=== PATIENT | male | born 1960 | race Caucasian/White ===

== ENCOUNTER 2018-10-02 16:28 | Inpatient (IN) | payer OTHER ==
[2018-10-02] MEDS ORDERED: NITROGLYCERIN OINT 1 INCH/GM PACKET TOPICAL STA (16:31)
[2018-10-02] MEDS ORDERED: SODIUM CHLORIDE 0.9% 500 ML 500 ML IV STA (16:31)
[2018-10-02] MEDS ORDERED: SODIUM CHLORIDE 0.9% 1,000 ML IV STA (16:31)
[2018-10-02] MEDS ORDERED: ASPIRIN 81 MG PO STA (16:31)
--- NOTE | 2018-10-02 16:37 | ED ---
General Adult HPI - General Stated complaint: Chest pain Time Seen by Provider: 10/02/18 16:30 Source: patient, EMS, RN notes reviewed Mode of arrival: EMS Limitations: no limitations - History of Present Illness Initial comments: patient is a pleasant 58-year-old male presenting to the emergency Department with chest discomfort. Onset of symptoms was around 45 minutes prior to arrival. Discomfort was 8/10. Discomfort is now 4/10 following fentanyl and nitroglycerin and aspirin by EMS. No history of similar symptoms previously. Patient does have some associated dyspnea and diaphoresis. No nausea. No radiation of symptoms. Discomfort feels like pressure in the midsternal region. - Related Data Home Medications Medication Instructions Recorded Confirmed Methylphenidate HCl [Ritalin] 10 mg PO TID 10/02/18 10/02/18 Allergies Allergy/AdvReac Type Severity Reaction Status Date / Time No Known Allergies Allergy Verified 10/02/18 16:45 Review of Systems ROS Statement: Those systems with pertinent positive or pertinent negative responses have been documented in the HPI. ROS Other: All systems not noted in ROS Statement are negative. Constitutional: Denies: fever Eyes: Denies: eye pain ENT: Denies: ear pain Respiratory: Reports: dyspnea. Denies: cough Cardiovascular: Reports: chest pain Endocrine: Denies: fatigue Gastrointestinal: Denies: abdominal pain, nausea Genitourinary: Denies: dysuria Musculoskeletal: Denies: back pain Skin: Denies: rash Neurological: Denies: weakness Past Medical History Past Medical History: No Reported History History of Any Multi-Drug Resistant Organisms: None Reported Additional Past Surgical History / Comment(s): eye Past Psychological History: ADD/ADHD Smoking Status: Current every day smoker Past Alcohol Use History: Daily Past Drug Use History: None Reported General Exam Limitations: no limitations General appearance: alert, other (patient does appear uncomfortable) Head exam: Present: normocephalic Eye exam: Present: normal appearance Neck exam: Present: normal inspection Respiratory exam: Present: normal lung sounds bilaterally. Absent: chest wall tenderness Cardiovascular Exam: Present: regular rate, normal rhythm Expanded Peripheral pulses: 2+: Radial (R), Radial (L), Posterior Tibialis (R), Posterior Tibialis (L), Dorsalis Pedis (R), Dorsalis Pedis (L) GI/Abdominal exam: Present: soft. Absent: tenderness Extremities exam: Present: normal inspection. Absent: pedal edema, calf tenderness Neurological exam: Present: alert Psychiatric exam: Present: normal affect, normal mood Skin exam: Present: normal color Course Vital Signs 10/02/18 10/02/18 10/02/18 16:33 16:41 16:46 Pulse Rate 76 64 73 Respiratory 18 18 18 Rate Blood Pressure 134/86 149/93 158/91 O2 Sat by Pulse 100 100 100 Oximetry - Reevaluation(s) Reevaluation #1: 10/02/18 16:42 patient reevaluated without significant change. Patient updated on EKG results and plan. Case was discussed with Dr. Lee with cardiology will take patient to the [facility]. STEMI alert was previously called. Case was also discussed with Dr. Nunn, covering for hospital call, who will admit. 10/02/18 16:52 Patient has gone to [facility] already. EKG Findings - EKG Comments: EKG Findings:: Sinus rhythm at 61. MA 82. QRS 88. QT 440. QTc 442. Normal axis. Normal QRS. Inferior ST elevation. Septal changes of ST depression leads V1 through V3. Medical Decision Making - Lab Data Result diagrams: 10/02/18 16:34 10/02/18 16:34 Lab Results 10/02/18 10/02/18 10/02/18 Range/Units 16:34 16:34 16:34 WBC 8.8 (3.8-10.6) k/uL RBC 4.42 (4.30-5.90) m/uL Hgb 13.7 (13.0-17.5) gm/dL Hct 41.1 (39.0-53.0) % MCV 93.0 (80.0-100.0) fL MCH 31.0 (25.0-35.0) pg MCHC 33.4 (31.0-37.0) g/dL RDW 13.5 (11.5-15.5) % Plt Count 298 (150-450) k/uL Neutrophils % 56 % Lymphocytes % 29 % Monocytes % 7 % Eosinophils % 3 % Basophils % 1 % Neutrophils # 4.9 (1.3-7.7) k/uL Lymphocytes # 2.6 (1.0-4.8) k/uL Monocytes # 0.6 (0-1.0) k/uL Eosinophils # 0.3 (0-0.7) k/uL Basophils # 0.1 (0-0.2) k/uL PT (9.0-12.0) sec INR (<1.2) APTT (22.0-30.0) sec Sodium 136 L (137-145) mmol/L Potassium 3.5 (3.5-5.1) mmol/L Chloride 103 (98-107) mmol/L Carbon Dioxide 22 (22-30) mmol/L Anion Gap 11 mmol/L BUN 16 (9-20) mg/dL Creatinine 1.18 (0.66-1.25) mg/dL Est GFR (CKD-EPI)AfAm 79 (>60 ml/min/1.73 sqM) Est GFR (CKD-EPI)NonAf 68 (>60 ml/min/1.73 sqM) Glucose 141 H (74-99) mg/dL Calcium 9.7 (8.4-10.2) mg/dL Total Bilirubin 0.4 (0.2-1.3) mg/dL AST 23 (17-59) U/L ALT 37 (21-72) U/L Alkaline Phosphatase 79 (38-126) U/L Total Creatine Kinase 98 (55-170) U/L Total Protein 6.5 (6.3-8.2) g/dL Albumin 3.9 (3.5-5.0) g/dL 10/02/18 Range/Units 16:34 WBC (3.8-10.6) k/uL RBC (4.30-5.90) m/uL Hgb (13.0-17.5) gm/dL Hct (39.0-53.0) % MCV (80.0-100.0) fL MCH (25.0-35.0) pg MCHC (31.0-37.0) g/dL RDW (11.5-15.5) % Plt Count (150-450) k/uL Neutrophils % % Lymphocytes % % Monocytes % % Eosinophils % % Basophils % % Neutrophils # (1.3-7.7) k/uL Lymphocytes # (1.0-4.8) k/uL Monocytes # (0-1.0) k/uL Eosinophils # (0-0.7) k/uL Basophils # (0-0.2) k/uL PT 9.5 (9.0-12.0) sec INR 0.9 (<1.2) APTT 22.3 (22.0-30.0) sec Sodium (137-145) mmol/L Potassium (3.5-5.1) mmol/L Chloride (98-107) mmol/L Carbon Dioxide (22-30) mmol/L Anion Gap mmol/L BUN (9-20) mg/dL Creatinine (0.66-1.25) mg/dL Est GFR (CKD-EPI)AfAm (>60 ml/min/1.73 sqM) Est GFR (CKD-EPI)NonAf (>60 ml/min/1.73 sqM) Glucose (74-99) mg/dL Calcium (8.4-10.2) mg/dL Total Bilirubin (0.2-1.3) mg/dL AST (17-59) U/L ALT (21-72) U/L Alkaline Phosphatase (38-126) U/L Total Creatine Kinase (55-170) U/L Total Protein (6.3-8.2) g/dL Albumin (3.5-5.0) g/dL - Radiology Data Interpreted by me: chest x-ray interpreted by myself shows some mild interstitial prominence. No mediastinal widening. Disposition Clinical Impression: ST elevation myocardial infarction (STEMI) Disposition: ADMITTED IP TO THIS HOSP Condition: Critical Is patient prescribed a controlled substance at d/c from ED?: No Decision Time: 16:43
[2018-10-02 16:40] LABS: Basophils # (A) 0.1 k/uL (0-0.2); Basophils % (A) 1 %; Eosinophils # (A) 0.3 k/uL (0-0.7); Eosinophils % (A) 3 %; HCT 41.1 % (39.0-53.0); HGB 13.7 gm/dL (13.0-17.5); Lymphocytes # (A) 2.6 k/uL (1.0-4.8); Lymphocytes % (A) 29 %; MCHC 33.4 g/dL (31.0-37.0); Mean Platelet Volume 6.9; Monocytes # (A) 0.6 k/uL (0-1.0); Monocytes % (A) 7 %; Neutrophils # (A) 4.9 k/uL (1.3-7.7); Neutrophils % (A) 56 %; Platelet Count 298 k/uL (150-450); RBC 4.42 m/uL (4.30-5.90); RDW 13.5 % (11.5-15.5); WBC 8.8 k/uL (3.8-10.6)
[2018-10-02] MEDS ORDERED: HEPARIN SODIUM,PORCINE 5,000 UNIT/ML 1 ML VIAL IV STA (16:40)
[2018-10-02] MEDS ORDERED: ATORVASTATIN 80 MG TAB PO STA (16:40)
[2018-10-02 16:49] LABS: Albumin 3.9 g/dL (3.5-5.0); Calcium 9.7 mg/dL (8.4-10.2); INR 0.9 (<1.2); Potassium 3.5 mmol/L (3.5-5.1); Prothrombin Time 9.5 sec (9.0-12.0); Total Bilirubin 0.4 mg/dL (0.2-1.3); Total Protein 6.5 g/dL (6.3-8.2)
[2018-10-02 16:50] LABS: Partial Thromboplastin Time 22.3 sec (22.0-30.0)
[2018-10-02 16:51] LABS: Creatine Kinase 98 U/L (55-170)
--- NOTE | 2018-10-02 16:55 | XR ---
EXAMINATION: XR chest 1V portable DATE AND TIME: 10/02/2018 4:39 PM CLINICAL INDICATION: PHH; chest pain TECHNIQUE: AP upright portable COMPARISON: None FINDINGS: The lungs are clear. The pleural spaces are negative. The cardiac silhouette is not enlarged. The remainder of the mediastinal silhouette is unremarkable. The skeletal structures and soft tissues are negative for acute findings. IMPRESSION: NO ACUTE PROCESS.
[2018-10-02] MEDS ORDERED: fentaNYL (PF) 50 MCG/ML 2 ML AMP ONE (17:00)
[2018-10-02] MEDS ORDERED: LIDOCAINE 1% INJ 10MG/ML (20 ML MDV) ONE (17:00)
[2018-10-02 17:05] LABS: Creatine Kinase MB 0.8 ng/mL (0.0-2.4); Troponin I <0.012 ng/mL (0.000-0.034)
[2018-10-02] MEDS ORDERED: fentaNYL (PF) 50 MCG/ML 2 ML AMP IV ONE (17:06)
[2018-10-02] MEDS ORDERED: LIDOCAINE 1% INJ 10MG/ML (20 ML MDV) SQ ONE (17:06)
[2018-10-02] MEDS ORDERED: BIVALIRUDIN BOLUS 250 MG/50 ML IV ONE (17:18)
[2018-10-02] MEDS ORDERED: BIVALIRUDIN 250 MG in SODIUM CHLORIDE 0.9% 50 ML IV ONE ×2 (17:19→18:13)
[2018-10-02] MEDS ORDERED: HYDROmorphone 2 MG/ML 1 ML SYRINGE IV ONE (17:37)
[2018-10-02] MEDS ORDERED: IOPAMIDOL-370 100ML BTL INJ ONE ×2 (17:43→18:03)
--- NOTE | 2018-10-02 18:02 | CONS ---
CONSULTATION CHIEF COMPLAINT: Acute myocardial infarction. HISTORY OF PRESENT ILLNESS: This is a 59-year-old gentleman with no significant past medical history who presented to [facility] with sudden onset chest pain. He describes it as precordial chest pressure that came on while he was walking with tingling in his arms associated with shortness of breath and diaphoresis. It started about half an hour prior to coming in. He comes in, had an EKG that showed acute inferoposterior wall myocardial infarction and patient was advised to undergo emergent cardiac catheterization. I evaluated the patient in the center medical and lab director. He had been explained of risks, benefits and alternatives. His coronary risk factors are in the form of smoking. There is no history of hypertension diabetes dyslipidemia. MEDICATIONS: Include Ritalin. ALLERGIES: There are no known drug allergies. FAMILY HISTORY: Negative for premature coronary artery disease. SOCIAL HISTORY: Significant for smoking. There is no history of EtOH abuse or drug abuse. REVIEW OF SYSTEMS: HEENT is unremarkable. Cardiac as described above. RESPIRATORY negative. GI negative. negative. ALLERGY/IMMUNOLOGY: Negative. Skin negative. MUSCULOSKELETAL: Negative. ENDOCRINE: Negative. DERM negative. CONSTITUTIONAL: Negative. ONCOLOGICAL negative. Rest of the system review is not relevant. EXAM: Comfortable at rest. Vital signs are stable. There is no jugular venous distention. Carotid upstroke is normal. There is no bruit. Chest exam reveals good air entry bilaterally. Heart exam reveals first and second heart sounds. No gallop. No murmur. No rub. Abdomen is soft, nontender. Exam of extremities did not reveal edema. Peripheral pulses are felt. [facility] exam did not reveal focal neurological deficits. ASSESSMENT: Acute inferoposterior wall myocardial infarction. PLAN: Patient will undergo emergent cardiac catheterization with a view to performing angioplasty. MMODL / IJN: [id number] /
--- NOTE | 2018-10-02 18:02 | CC ---
CARDIAC CATHETERIZATION REPORT INDICATION: Inferoposterior wall myocardial infarction. PROCEDURE NOTE: After obtaining informed consent, left heart catheterization and coronary angiogram were performed via the right femoral artery using standard [place] catheters. The patient tolerated the procedure well without any obvious immediate complications. Patient received moderate conscious sedation. Total sedation time was 17 minutes. HEMODYNAMICS: Left ventricular end-diastolic pressure is 14 mm. There is no significant gradient across aortic valve. LEFT VENTRICULOGRAM: Ventriculogram is not performed. ANGIOGRAPHIC DATA: LEFT MAIN CORONARY ARTERY: Left main coronary artery is a normal-sized vessel and was free of stenosis. Divides into left anterior descending coronary artery and circumflex coronary artery. CIRCUMFLEX CORONARY ARTERY gives off a large caliber OM branch that shows a 90% stenosis. LEFT ANTERIOR DESCENDING CORONARY ARTERY: LAD shows a mild to moderate atherosclerotic plaque in its midportion. Gives off a diagonal branch that shows a 40% stenosis. RIGHT CORONARY ARTERY is a large dominant vessel that shows moderate atherosclerotic plaque in its midportion. CONCLUSIONS: 80-90 percent stenosis involving the OM branch. This I believe is the vessel related to the myocardial infarction. The patient will undergo angioplasty of the same. MMODL / IJN: [id number] /
[2018-10-02] MEDS ORDERED: TICAGRELOR 90 MG TAB ONE (18:07)
[2018-10-02] MEDS ORDERED: IV FLUID CONTINUATION 1,000 ML IV ONE (18:10)
[2018-10-02] MEDS ORDERED: NITROGLYCERIN 1000MCG/10ML SYRINGE INTRACORON ONE (18:14)
[2018-10-02] MEDS ORDERED: TICAGRELOR 90 MG TAB PO ONE (18:15)
[2018-10-02] MEDS ORDERED: METOPROLOL TARTRATE 5 MG/5 ML VIAL IVP ONE ×2 (18:19→18:21)
[2018-10-02] MEDS ORDERED: RX INFO: IV CONTRAST WAS GIVEN 1 EACH MISC MISCELLANE PRN (18:33)
[2018-10-02] MEDS ORDERED: ZOLPIDEM 5 MG TAB PO PRN (18:33)
[2018-10-02] MEDS ORDERED: ATROPINE SULFATE 0.1 MG/ML 10ML SYRINGE IV PRN (18:33)
[2018-10-02] MEDS ORDERED: METOPROLOL TARTRATE 25 MG TAB PO STA (19:01)
[2018-10-02 19:02] LABS: Glucose,Whole Blood 103 mg/dL (75-99)
[2018-10-02] MEDS: SODIUM CHLORIDE 0.9% 1,000 ML IV SCH (19:07)
--- NOTE | 2018-10-02 19:28 | P.HPIM ---
History of Present Illness 58-year-old pleasant male came in with compensative fractures discomfort 8/10 in severity along with diaphoresis and nausea lightheadedness and shortness of breath found to have ST elevations and this elevation myocardial infarction underwent cardiac catheterization and stenting to circumflex patient does smoke extensive counseling regarding this problem was provided and extensive counseling regarding post myocardial infarction medications was provided as well. Review of Systems REVIEW OF SYSTEMS: CONSTITUTIONAL: No fever, no malaise, no fatigue. HEENT: No recent visual problems or hearing problems. Denied any sore throat. CARDIOVASCULAR: No orthopnea, PND, no palpitations, no syncope. PULMONARY: no cough, no hemoptysis. GASTROINTESTINAL: No diarrhea, no nausea, no vomiting, no abdominal pain. NEUROLOGICAL: No headaches, no weakness, no numbness. HEMATOLOGICAL: Denies any bleeding or petechiae. GENITOURINARY: Denies any burning micturition, frequency, or urgency. MUSCULOSKELETAL/RHEUMATOLOGICAL: Denies any joint pain, swelling, or any muscle pain. ENDOCRINE: Denies any polyuria or polydipsia. The rest of the 14-point review of systems is negative. Past Medical History Past Medical History: No Reported History History of Any Multi-Drug Resistant Organisms: None Reported Additional Past Surgical History / Comment(s): eye Past Psychological History: ADD/ADHD Smoking Status: Current every day smoker Past Alcohol Use History: Daily Past Drug Use History: None Reported Medications and Allergies Home Medications Medication Instructions Recorded Confirmed Type Methylphenidate HCl [Ritalin] 10 mg PO TID 10/02/18 10/02/18 History Allergies Allergy/AdvReac Type Severity Reaction Status Date / Time No Known Allergies Allergy Verified 10/02/18 16:45 Physical Exam Vitals: Vital Signs Temp Pulse Resp BP Pulse Ox 10/02/18 19:00 98.1 F 76 15 143/96 98 10/02/18 18:53 78 22 10/02/18 16:46 73 18 158/91 100 10/02/18 16:41 64 18 149/93 100 10/02/18 16:33 76 18 134/86 100 Intake and Output 10/02/18 10/02/18 10/02/18 06:59 14:59 22:59 Intake Total 953.4 Balance 953.4 Intake: IV 953.4 Other: Weight 76.657 kg PHYSICAL EXAMINATION: GENERAL: The patient is alert and oriented x3, not in any acute distress. Well developed, well nourished. HEENT: Pupils are round and equally reacting to light. EOMI. No scleral icterus. No conjunctival pallor. Normocephalic, atraumatic. No pharyngeal erythema. No thyromegaly. CARDIOVASCULAR: S1 and S2 present. No murmurs, rubs, or gallops. PULMONARY: Chest is clear to auscultation, no wheezing or crackles. ABDOMEN: Soft, nontender, nondistended, normoactive bowel sounds. No palpable organomegaly. MUSCULOSKELETAL: No joint swelling or deformity. EXTREMITIES: No cyanosis, clubbing, or pedal edema. NEUROLOGICAL: Gross neurological examination did not reveal any focal deficits. SKIN: No rashes. Results CBC & Chem 7: 10/02/18 16:34 10/02/18 16:34 Labs: Abnormal Lab Results - Last 24 Hours (Table) 10/02/18 10/02/18 Range/Units 16:34 18:50 Sodium 136 L (137-145) mmol/L Glucose 141 H (74-99) mg/dL POC Glucose (mg/dL) 103 H (75-99) mg/dL Assessment and Plan Plan: -Acute non-ST elevation microinfarction: Patient is status post cardiac catheterization and stenting to circumflex, echo cardiac exam will be obtained patient will continue to Antiplatelet therapy beta festus and a statin. Patient is also on lisinopril which will be continued for now -Nicotine abuse: Counseling was provided regarding this. -history of ADHD: Hold off on Nelson candidate for now because of acute pericardial infarction.
--- NOTE | 2018-10-02 19:32 | PTCA ---
PERCUTANEOUSTRANS CORORONARY ANGIOGRAPHY DATE OF SERVICE: 10/02/2018 PROCEDURE PERFORMED: PTCA and stenting of a subtotally occluded 1st obtuse marginal branch of circumflex performed in the setting of an acute inferior ST-elevation OK with reperfusion accomplished in 55 minutes. PERFORMED BY: Dr. Jhonatan Alberts. SEDATION: Moderate conscious sedation time was 71 minutes. CLINICAL INFORMATION: Mr. Jeffrey Buitrago is a 58-year-old gentleman who presented with acute inferior OK, was seen by Dr. Thibodeaux, underwent prompt cardiac catheterization, which revealed a 95% stenosis involving the first obtuse marginal with thrombus. He was advised intervention that was performed expeditiously. PROCEDURE NOTE: The existing 6-Barb[place] introducer in the right femoral artery was used to perform the procedure. I used a standard left [place] guide catheter to cannulate the left coronary artery and a run-through wire to cross the lesion. I used a 3.25 caliber 15 mm long Trek balloon and dilated this lesion at 8 atmospheres. Patient had relief of chest pain with remarkably improved angiographic appearance and flow. As I was preparing to get a stent, he started having chest pain and inferior ST elevation. At this point, coronary injections revealed that there was a dissection that started probably at the lesion and dissected distally. I immediately tried to reposition the wire because the wire position was lost and it seemed to be a difficult one to wire. I used another whisper wire with a a J-tip and with this I was able to rewire the lesion and into the true lumen all the way distally. I then used a 2.5 caliber 12 mm balloon and gave multiple inflations starting from the distal aspect of the obtuse marginal all the way to the origin as it came off from the circumflex. This ensured that the patient's relief of chest pain occurred and also EKG improved remarkably. I then deployed 3 stents. The distal most stent was of 23 mm length. The mid stent was 18 mm length and the proximal stent was 12 mm length. All of these were 2.5 caliber stents deployed at about 10-11 atmospheres. Excellent angiographic result was achieved. There was a small branch of the distal circumflex that seemed to have some sluggish flow. Otherwise, excellent angiographic result was achieved. Patient stabilized. His EKG normalized. His chest pain was totally relieved. Excellent angiographic result without complication was achieved. He received Brilinta 180 mg orally and also Angiomax bolus and infusion. The sheath was taken out and Angio-Seal device used to secure hemostasis and he was sent to the room in a stable condition. Results were discussed with the patient and also his . The patient will be on dual antiplatelet therapy, statins and beta blockers. I expect him to do well. I explained to the patient and that there was a flap at the site of inflation requiring additional stents, but eventual result was excellent. MMDENIZ / IJN: [id number] /
[2018-10-02] MEDS: MAG HYDROX/AL HYDROX/SIMETH 30 ML CUP PO PRN (20:01)
[2018-10-02] MEDS: NITROGLYCERIN SL TABS 0.4 MG TAB SUBLINGUAL PRN ×2 (20:02→20:49)
[2018-10-02] MEDS: METOPROLOL TARTRATE 25 MG TAB PO SCH (20:54)
[2018-10-02] MEDS: HYDROmorphone 0.5 MG/0.5 ML SYRINGE IVP PRN (20:56)
[2018-10-02] MEDS: LISINOPRIL 10 MG TAB PO SCH (21:51)
[2018-10-03] MEDS: HYDROmorphone 0.5 MG/0.5 ML SYRINGE IVP PRN ×3 (01:30→09:17)
[2018-10-03 06:09] LABS: Basophils # (A) 0.1 k/uL (0-0.2); Basophils % (A) 0 %; Eosinophils # (A) 0.2 k/uL (0-0.7); Eosinophils % (A) 2 %; HCT 39.2 % (39.0-53.0); HGB 12.9 gm/dL (13.0-17.5); Lymphocytes # (A) 1.6 k/uL (1.0-4.8); Lymphocytes % (A) 13 %; MCH 30.7 pg (25.0-35.0); Mean Platelet Volume 7.1; Monocytes # (A) 0.6 k/uL (0-1.0); Monocytes % (A) 5 %; Neutrophils # (A) 9.6 k/uL (1.3-7.7); Neutrophils % (A) 78 %; Platelet Count 250 k/uL (150-450); RBC 4.21 m/uL (4.30-5.90); RDW 14.3 % (11.5-15.5); WBC 12.3 k/uL (3.8-10.6)
[2018-10-03 06:29] LABS: Anion Gap 7 mmol/L; Blood Urea Nitrogen 13 mg/dL (9-20); Calcium 9.6 mg/dL (8.4-10.2); Carbon Dioxide 25 mmol/L (22-30); Chloride 103 mmol/L (98-107); Glucose 101 mg/dL (74-99); Magnesium 1.9 mg/dL (1.6-2.3); Potassium 3.8 mmol/L (3.5-5.1); Sodium 135 mmol/L (137-145)
[2018-10-03] MEDS ORDERED: Potassium Replacement Protocol 1 EACH MISC MISCELLANE PRN (06:38)
[2018-10-03] MEDS ORDERED: POTASSIUM CHLORIDE ER 20 MEQ TAB.ER PO SCH (07:00)
[2018-10-03] MEDS ORDERED: Magnesium Replacement Protocol 1 EACH MISC MISCELLANE PRN (07:33)
[2018-10-03] MEDS: MAGNESIUM SULFATE-D5W PMX 1 GM in DEXTROSE/WATER 1 100ML.BAG IVPB SCH ×2 (08:18→09:16)
[2018-10-03] MEDS: METOPROLOL TARTRATE 25 MG TAB PO SCH ×2 (08:22→20:03)
[2018-10-03] MEDS: MAG HYDROX/AL HYDROX/SIMETH 30 ML CUP PO PRN (08:22)
[2018-10-03] MEDS: ASPIRIN 81 MG PO SCH (08:23)
[2018-10-03] MEDS: SODIUM CHLORIDE 0.9% 1,000 ML IV SCH (08:23)
[2018-10-03] MEDS: TICAGRELOR 90 MG TAB PO SCH ×2 (08:23→20:03)
[2018-10-03 09:33] VITALS: BMI 27.7
--- NOTE | 2018-10-03 10:42 | ECHOF ---
Referral Reason:Acute Inf STEMI PCI of LCX MEASUREMENTS -------- HEIGHT: 170.2 cm WEIGHT: 80.3 kg BP: 109/76 RVIDd: 2.4 cm (< 3.3) IVSd: 1.3 cm (0.6 - 1.1) LVIDd: 4.3 cm (3.9 - 5.3) LVPWd: 1.3 cm (0.6 - 1.1) IVSs: 1.5 cm LVIDs: 2.9 cm LVPWs: 1.3 cm LA Diam: 3.7 cm (2.7 - 3.8) LAESV Index (A-L): 20.51 ml/m Ao Diam: 3.1 cm (2.0 - 3.7) AV Cusp: 2.0 cm (1.5 - 2.6) LA Diam: 3.8 cm (2.7 - 3.8) MV EXCURSION: 22.907 mm (> 18.000) MV EF SLOPE: 156 mm/s (70 - 150) EPSS: 0.2 cm MV E Austin: 0.90 m/s MV DecT: 135 ms MV A [place]: 0.69 m/s MV E/A Ratio: 1.30 RAP: 5.00 mmHg RVSP: 18.36 mmHg FINDINGS -------- Sinus rhythm. This was a technically good study. The left ventricular size is normal. There is mild concentric left ventricular hypertrophy. Overa ll left ventricular systolic function is low-normal with, an EF between 50 - 55 %. The right ventricle is normal in size. The left atrial size is normal. Normal LA size by volume 22+/-6 ml/m2. The right atrial size is normal. Interatrial and interventricular septum intact. The aortic valve is trileaflet, and appears structurally normal. No aortic stenosis or regurgitation. Mild mitral annular calcification present. Mild mitral regurgitation is present. Mild tricuspid regurgitation present. There is no evidence of pulmonary hypertension. The right v entricular systolic pressure, as measured by Doppler, is 18.36mmHg. There is no pulmonic regurgitation present. The aortic root size is normal. The inferior vena cava is mildly dilated. There is no pericardial effusion. CONCLUSIONS -------- 1. The left ventricular size is normal. 2. Overall left ventricular systolic function is low-normal with, an EF between 50 - 55 %. 3. The right ventricle is normal in size. 4. The left atrial size is normal. 5. Normal LA size by volume 22+/-6 ml/m2. 6. The right atrial size is normal. 7. Interatrial and interventricular septum intact. 8. The aortic valve is trileaflet, and appears structurally normal. No aortic stenosis or regurgitati on. 9. Mild mitral annular calcification present. 10. Mild mitral regurgitation is present. 11. Mild tricuspid regurgitation present. 12. There is no evidence of pulmonary hypertension. 13. The right ventricular systolic pressure, as measured by Doppler, is 18.36mmHg. 14. There is no pulmonic regurgitation present. 15. The aortic root size is normal. 16. The inferior vena cava is mildly dilated. 17. There is no pericardial effusion. ALARM ADJUSTER: Tiki Wynne RDCS
--- NOTE | 2018-10-03 11:23 | PN ---
PROGRESS NOTE Winston is a 58-year-old gentleman who was admitted to hospital yesterday with acute inferoposterior wall myocardial infarction. Underwent emergent cardiac catheterization and angioplasty of [place] circumflex coronary artery. This morning he is doing well. Has mild atypical chest pain. He is on aspirin, Lipitor, Zestril, Lopressor, and Brilinta. EKG from this morning is not available to me at this time. On exam, comfortable at rest. Vital signs are stable. There is no jugular venous distention. Chest exam reveals good air entry bilaterally. Heart exam reveals first and second heart sounds. No gallop. No murmur. No rub. Abdomen is soft, nontender. Examination of extremities did not reveal any edema. Groin is free of bleeding, bruit, hematoma. Foot pulses are intact. Labs show a hemoglobin of 12.9, platelet count is 250. Potassium is 3.8. Creatinine is 0.9. Peak troponin is 17.4. ASSESSMENT: Acute inferoposterior wall myocardial infarction. PLAN: Patient is status post catheterization and angioplasty. Patient is doing well, ready to be transferred out of ICU. MMODL / IJN: [id number] /
--- NOTE | 2018-10-03 16:16 | P.PN ---
Subjective Patient admitted for ST elevation myocardial infarction underwent cardiac ablation and stenting of circumflex. Patient is presently clinically doing well. Patient does have elevated troponin and patient will transfer out of ICU had normal ejection fraction. Constitutional: Denied any fatigue denied any fever. Cardio vascular: denied any chest pain, palpitations Gastrointestinal denied any nausea vomiting Pulmonary: Denied any shortness of breath cough Neurologic denied any new focal deficits All inpatient medications were reviewed and appropriate changes in these medications as dictated in the interval history and assessment and plan. Objective - Vital Signs Vital signs: Vital Signs Temp 98.1 F 10/03/18 12:00 Pulse 64 10/03/18 13:41 Resp 16 10/03/18 13:00 BP 119/70 10/03/18 13:41 Pulse Ox 96 10/03/18 09:00 Intake & Output 10/02/18 10/03/18 10/03/18 18:59 06:59 18:59 Intake Total 1053.4 2880 340 Output Total 1600 2690 Balance 1053.4 1280 -2350 Weight 76.657 kg 80.4 kg 80.4 kg Intake: IV 953.4 Intake, IV Titration 100 1200 340 Amount Magnesium Sulfate-D5w Pmx 200 1 gm In Dextrose/Water 1 100ml.bag @ 100 mls/hr IVPB Q1H [facility] Rx#: [id number] Sodium Chloride 0.9% 1, 100 1200 140 000 ml @ 100 mls/hr IV . Q10H [facility] Rx#:[id number] Oral 1680 Output: Urine 1600 2690 Other: Voiding Method Urinal Urinal # Voids 1 - Exam PHYSICAL EXAMINATION: GENERAL: The patient is alert and oriented x3, not in any acute distress. Well developed, well nourished. HEENT: Pupils are round and equally reacting to light. EOMI. No scleral icterus. No conjunctival pallor. Normocephalic, atraumatic. No pharyngeal erythema. No thyromegaly. CARDIOVASCULAR: S1 and S2 present. No murmurs, rubs, or gallops. PULMONARY: Chest is clear to auscultation, no wheezing or crackles. ABDOMEN: Soft, nontender, nondistended, normoactive bowel sounds. No palpable organomegaly. MUSCULOSKELETAL: No joint swelling or deformity. EXTREMITIES: No cyanosis, clubbing, or pedal edema. NEUROLOGICAL: Gross neurological examination did not reveal any focal deficits. SKIN: No rashes. - Labs CBC & Chem 7: 10/03/18 05:47 10/03/18 05:47 Labs: Abnormal Lab Results - Last 24 Hours (Table) 10/02/18 10/02/18 10/02/18 Range/Units 16:34 18:50 22:32 WBC (3.8-10.6) k/uL RBC (4.30-5.90) m/uL Hgb (13.0-17.5) gm/dL Neutrophils # (1.3-7.7) k/uL Sodium 136 L (137-145) mmol/L Glucose 141 H (74-99) mg/dL POC Glucose (mg/dL) 103 H (75-99) mg/dL Troponin I 11.900 H* (0.000-0.034) ng/mL 10/03/18 10/03/18 10/03/18 Range/Units 05:47 05:47 05:47 WBC 12.3 H (3.8-10.6) k/uL RBC 4.21 L (4.30-5.90) m/uL Hgb 12.9 L (13.0-17.5) gm/dL Neutrophils # 9.6 H (1.3-7.7) k/uL Sodium 135 L (137-145) mmol/L Glucose 101 H (74-99) mg/dL POC Glucose (mg/dL) (75-99) mg/dL Troponin I 17.400 H* (0.000-0.034) ng/mL 10/03/18 Range/Units 11:40 WBC (3.8-10.6) k/uL RBC (4.30-5.90) m/uL Hgb (13.0-17.5) gm/dL Neutrophils # (1.3-7.7) k/uL Sodium (137-145) mmol/L Glucose (74-99) mg/dL POC Glucose (mg/dL) (75-99) mg/dL Troponin I 17.100 H* (0.000-0.034) ng/mL Assessment and Plan Plan: -AcuteST elevation myocardial infarction: Patient is status post cardiac catheterization and stenting to circumflex, echo cardiac exam will be obtained patient will continue to Antiplatelet therapy beta festus and a statin. Patient is also on lisinopril which will be continued for now and patient had normal ejection fraction -Nicotine abuse: Counseling was provided regarding this. -history of ADHD: Hold off on methargen candidate candidate for now because of acute myocardial infarction.
[2018-10-03] MEDS: LISINOPRIL 10 MG TAB PO SCH (20:03)
[2018-10-03] MEDS: ATORVASTATIN 80 MG TAB PO SCH (20:03)
[2018-10-04] MEDS: ASPIRIN 81 MG PO SCH (08:39)
[2018-10-04] MEDS: METOPROLOL TARTRATE 25 MG TAB PO SCH ×2 (08:40→20:41)
[2018-10-04] MEDS: TICAGRELOR 90 MG TAB PO SCH ×2 (08:40→20:41)
--- NOTE | 2018-10-04 13:09 | P.PN ---
Subjective Progress Note Date: 10/04/18 This is a 58-year-old gentleman with no significant past medical history presented to the hospital with an acute ST elevation myocardial infarction in the inferior posterior region. He was taken to the cardiac catheterization lab where he underwent stenting of a subtotally occluded first obtuse marginal branch of the circumflex. The patient was seen and examined this morning, he's been up ambulating in the hallway most of the morning, denies any chest pain or difficulty in breathing. An echocardiogram with Doppler study was performed which revealed an ejection fraction of 50-55%. Blood pressure this morning 116/50 with a heart rate in the 60s, 97% on room air. Objective - Vital Signs Vital signs: Vital Signs Temp 98.8 F 10/04/18 05:57 Pulse 60 10/04/18 05:57 Resp 16 10/04/18 05:57 BP 116/52 10/04/18 05:57 Pulse Ox 97 10/04/18 05:57 Intake & Output 10/03/18 10/04/18 10/04/18 18:59 06:59 18:59 Intake Total 580 440 Output Total 3390 450 Balance -2810 -10 Weight 80.4 kg Intake: Intake, IV Titration 340 Amount Magnesium Sulfate-D5w Pmx 200 1 gm In Dextrose/Water 1 100ml.bag @ 100 mls/hr IVPB Q1H [facility] Rx#: [id number] Sodium Chloride 0.9% 1, 140 000 ml @ 100 mls/hr IV . Q10H [facility] Rx#:[id number] Oral 240 440 Output: Urine 3390 450 Other: Voiding Method Urinal Toilet # Voids 1 - Exam PHYSICAL EXAMINATION: GENERAL: 58-year-old gentleman in no acute distress at the time of my examination HEENT: Head is atraumatic, normocephalic. Pupils equal, round. Sclera anicteric. Conjunctiva are clear. Mucous membranes of the mouth are moist. Neck is supple. There is no elevated jugular venous pressure. No carotid bruit is heard. HEART EXAMINATION: Heart S1, S2 normal. No murmur or gallop heard. CHEST EXAMINATION: Lungs are clear to auscultation and precussion. No chest wall tenderness is noted on palpation or with deep breathing. ABDOMEN: Soft, nontender. Bowel sounds are heard. No organomegaly noted. EXTREMITIES: 2+ peripheral pulses with no evidence of peripheral edema and no calf tenderness noted. NEUROLOGIC patient is awake, alert and oriented 3 . . - Labs CBC & Chem 7: 10/03/18 05:47 10/03/18 05:47 Labs: Abnormal Lab Results - Last 24 Hours (Table) 10/03/18 Range/Units 11:40 Troponin I 17.100 H* (0.000-0.034) ng/mL Assessment and Plan Plan: Assessment and plan #[address] elevation myocardial infarction status post angioplasty and stenting of first obtuse marginal branch of the circumflex #2 hyperlipidemia Plan We will continue to observe the patient for another 24 hours, plan for discharge home tomorrow if stable. Follow-up with Dr. Thibodeaux in the office. DNP note has been reviewed, I agree with a documented findings and plan of care. Patient was seen and examined.
--- NOTE | 2018-10-04 14:48 | P.PN ---
Subjective Patient admitted for ST elevation myocardial infarction underwent cardiac ablation and stenting of circumflex. Patient is presently clinically doing well. Patient does have elevated troponin and patient will transfer out of ICU had normal ejection fraction. 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 Cardio vascular: denied any chest pain, palpitations Gastrointestinal denied any nausea vomiting Pulmonary: Denied any shortness of breath cough Neurologic denied any new focal deficits All inpatient medications were reviewed and appropriate changes in these medications as dictated in the interval history and assessment and plan. Objective - Vital Signs Vital signs: Vital Signs Temp 98.8 F 10/04/18 05:57 Pulse 60 10/04/18 05:57 Resp 16 10/04/18 05:57 BP 116/52 10/04/18 05:57 Pulse Ox 97 10/04/18 05:57 Intake & Output 10/03/18 10/04/18 10/04/18 18:59 06:59 18:59 Intake Total 580 440 Output Total 3390 450 Balance -2810 -10 Weight 80.4 kg Intake: Intake, IV Titration 340 Amount Magnesium Sulfate-D5w Pmx 200 1 gm In Dextrose/Water 1 100ml.bag @ 100 mls/hr IVPB Q1H [facility] Rx#: [id number] Sodium Chloride 0.9% 1, 140 000 ml @ 100 mls/hr IV . Q10H [facility] Rx#:[id number] Oral 240 440 Output: Urine 3390 450 Other: Voiding Method Urinal Toilet # Voids 1 - Exam PHYSICAL EXAMINATION: GENERAL: The patient is alert and oriented x3, not in any acute distress. Well developed, well nourished. HEENT: Pupils are round and equally reacting to light. EOMI. No scleral icterus. No conjunctival pallor. Normocephalic, atraumatic. No pharyngeal erythema. No thyromegaly. CARDIOVASCULAR: S1 and S2 present. No murmurs, rubs, or gallops. PULMONARY: Chest is clear to auscultation, no wheezing or crackles. ABDOMEN: Soft, nontender, nondistended, normoactive bowel sounds. No palpable organomegaly. MUSCULOSKELETAL: No joint swelling or deformity. EXTREMITIES: No cyanosis, clubbing, or pedal edema. NEUROLOGICAL: Gross neurological examination did not reveal any focal deficits. SKIN: No rashes. - Labs CBC & Chem 7: 10/03/18 05:47 10/03/18 05:47 Assessment and Plan Plan: -AcuteST elevation myocardial infarction: Patient is status post cardiac cath eterization and stenting to circumflex, echo cardiac exam will be obtained patient will continue to Antiplatelet therapy beta festus and a statin. Patient is also on lisinopril which will be continued for now and patient had normal ejection fraction -Nicotine abuse: Counseling was provided regarding this. -history of ADHD: Hold off on methargen candidate candidate for now because of acute myocardial infarction.
[2018-10-04] MEDS: ATORVASTATIN 80 MG TAB PO SCH (20:41)
[2018-10-04] MEDS: LISINOPRIL 10 MG TAB PO SCH (20:41)
[2018-10-05 09:33] VITALS: BP 101/72; PULSE 69; RESP 20; TEMP 97.8
[2018-10-05] MEDS: ASPIRIN 81 MG PO SCH (09:59)
[2018-10-05] MEDS: TICAGRELOR 90 MG TAB PO SCH (09:59)
[2018-10-05] MEDS: METOPROLOL TARTRATE 25 MG TAB PO SCH (09:59)
--- NOTE | 2018-10-05 10:23 | CONS ---
CONSULTATION Jeffrey is a 58-year-old gentleman with acute inferior wall myocardial infarction, cath and angioplasty. This morning he is looking good, ambulating without any problems and is eager to go home. Patient is on aspirin, Lipitor, Lopressor, and Brilinta. PHYSICAL EXAMINATION: On exam, comfortable at rest. Vital signs are stable. There is no jugular venous distention. Carotid upstroke is normal. Chest exam reveals good air entry bilaterally. Heart exam reveals first and second heart sounds. No gallop. Exam of extremities did not reveal any edema. Peripheral pulses are palpable. ASSESSMENT: Coronary artery disease, status post acute myocardial infarction, cath and angioplasty. The patient is doing well. Stable to be discharged home. Follow up with me. MMDENIZ / MOYN: [id number] /
--- NOTE | 2018-10-05 11:59 | P.DS ---
Providers Date of admission: 10/02/18 16:43 Attending physician: Genaro Nunn Consults: 10/02/18 16:43 Consult Physician Stat Consulting Provider: Krzysztof Thibodeaux Consult Reason/Comments: stemi Do you want consulting provider notified?: Already Contacted 10/02/18 18:33 Consult Physician Routine Consulting Provider: [facility] Consult Reason/Comments: Post Interventional patient Do you want consulting provider notified?: Already Contacted Primary care physician: Stated None Hospital Course: Patient admitted for ST elevation myocardial infarction underwent cardiac ablation and stenting of circumflex. Patient is presently clinically doing well. Patient does have elevated troponin and patient will transfer out of ICU had normal ejection fraction. 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 PHYSICAL EXAMINATION: GENERAL: The patient is alert and oriented x3, not in any acute distress. Well developed, well nourished. HEENT: Pupils are round and equally reacting to light. EOMI. No scleral icterus. No conjunctival pallor. Normocephalic, atraumatic. No pharyngeal erythema. No thyromegaly. CARDIOVASCULAR: S1 and S2 present. No murmurs, rubs, or gallops. PULMONARY: Chest is clear to auscultation, no wheezing or crackles. ABDOMEN: Soft, nontender, nondistended, normoactive bowel sounds. No palpable organomegaly. MUSCULOSKELETAL: No joint swelling or deformity. EXTREMITIES: No cyanosis, clubbing, or pedal edema. NEUROLOGICAL: Gross neurological examination did not reveal any focal deficits. SKIN: No rashes. Assessment and Plan Plan: -AcuteST elevation myocardial infarction: Patient is status post cardiac catheterization and stenting to circumflex, echo cardiac exam will be obtained patient will continue to Antiplatelet therapy beta festus and a statin. Patient is also on lisinopril which will be continued for now and patient had normal ejection fraction -Nicotine abuse: Counseling was provided regarding this. -history of ADHD: Patient Condition at Discharge: Critical Plan - Discharge Summary Discharge Rx Participant: Yes New Discharge Prescriptions: New Aspirin 81 mg PO DAILY #30 chew Ticagrelor [Brilinta] 90 mg PO BID #60 tab Atorvastatin [Lipitor] 80 mg PO HS #30 tab Metoprolol Tartrate [Lopressor] 25 mg PO BID #60 tab Nitroglycerin Sl Tabs [Nitrostat] 0.4 mg SUBLINGUAL Q5M PRN #25 tab PRN Reason: Chest Pain Lisinopril [Zestril] 10 mg PO HS #30 tab No Action Methylphenidate HCl [Ritalin] 10 mg PO TID Discharge Medication List Methylphenidate HCl [Ritalin] 10 mg PO TID 10/02/18 [History] Aspirin 81 mg PO DAILY #30 chew 10/04/18 [Rx] Atorvastatin [Lipitor] 80 mg PO HS #30 tab 10/04/18 [Rx] Lisinopril [Zestril] 10 mg PO HS #30 tab 10/04/18 [Rx] Metoprolol Tartrate [Lopressor] 25 mg PO BID #60 tab 10/04/18 [Rx] Nitroglycerin Sl Tabs [Nitrostat] 0.4 mg SUBLINGUAL Q5M PRN #25 tab 10/04/18 [Rx] Ticagrelor [Brilinta] 90 mg PO BID #60 tab 10/04/18 [Rx] Follow up Appointment(s)/Referral(s): Tonya Real MD [REFERRING] - 1 Week None,Stated [Primary Care Provider] - 1-2 days Krzysztof Thibodeaux MD [STAFF PHYSICIAN] - 10/11/18 12:45 pm () Patient Instructions/Handouts: *Surgery [facility] - After Heart Catheterization - Environmental Specialist Instructions, Left Heart Catheterization (DC) Activity/Diet/Wound Care/Special Instructions: Pt will need indigent funds at discharge and free day Brilinta coupon.
== END 2018-10-05 13:41 | disposition home or self-care (01) | DRG 247 ==
LOC: EC 16:28 → 2SICU 16:43 → 3SCARD 10-03 17:42
PROVIDERS: ADMIT Internal Medicine; ATTEND Internal Medicine
PROC: 4A023N7 Measurement of Cardiac Sampling and Pressure, Left Heart, Percutaneous Approach (ICD-10-PCS; principal; 2018-10-02 16:46)
PROC: B2111ZZ Fluoroscopy of Multiple Coronary Arteries using Low Osmolar Contrast (ICD-10-PCS; principal; 2018-10-02 16:46)
PROC: 027036Z Dilation of Coronary Artery, One Artery with Three Drug-eluting Intraluminal Devices, Percutaneous Approach (ICD-10-PCS; 2018-10-02 16:46)
DX: I21.19 ST elevation (STEMI) myocardial infarction involving other coronary artery of inferior wall (principal); F90.9 Attention-deficit hyperactivity disorder, unspecified type; F17.200 Nicotine dependence, unspecified, uncomplicated; E78.5 Hyperlipidemia, unspecified; I25.10 Atherosclerotic heart disease of native coronary artery without angina pectoris; Z98.890 Other specified postprocedural states; Z80.0 Family history of malignant neoplasm of digestive organs; Z79.899 Other long term (current) drug therapy
CPT/HCPCS: 36415; 71045; 80048; 80053; 82550; 82553; 83735; 84484; 85025; 85610; 85730; 93005; 93306; 93458; 96374; 99285; C1874

== ENCOUNTER 2018-10-06 10:40 | Observation (INO) | payer OTHER ==
[2018-10-06 10:49] VITALS: TEMP 98
[2018-10-06] MEDS ORDERED: ASPIRIN 81 MG PO STA (11:04)
[2018-10-06] MEDS ORDERED: NITROGLYCERIN OINT 1 INCH/GM PACKET TOPICAL STA (11:04)
--- NOTE | 2018-10-06 11:07 | ED ---
General Adult HPI - General Chief complaint: Chest Pain Stated complaint: Chest pain Time Seen by Provider: 10/06/18 10:54 Source: patient, family, RN notes reviewed Mode of arrival: wheelchair Limitations: no limitations - History of Present Illness Initial comments: Patient is a pleasant 58-year-old male presenting to the emergency Department with complaints of chest discomfort. Onset of symptoms was this morning. Patient had discomfort in his chest that resolved with nitroglycerin. Patient then had a second episode that again resolved with nitroglycerin. Discomfort was somewhat mild, rated 2 or 3/10. Discomfort feels similar to recent myoc ardial infarction. Patient did have recent stent placement. Patient states discomfort was not nearly as severe at this point. Patient had some minimal associated dyspnea and tingling to the left arm. No associated nausea or diaphoresis. - Related Data Home Medications Medication Instructions Recorded Confirmed Methylphenidate HCl [Ritalin] 10 mg PO TID 10/02/18 10/06/18 Previous Rx's Medication Instructions Recorded Aspirin 81 mg PO DAILY #30 chew 10/04/18 Atorvastatin [Lipitor] 80 mg PO HS #30 tab 10/04/18 Lisinopril [Zestril] 10 mg PO HS #30 tab 10/04/18 Metoprolol Tartrate [Lopressor] 25 mg PO BID #60 tab 10/04/18 Nitroglycerin Sl Tabs [Nitrostat] 0.4 mg SUBLINGUAL Q5M PRN #25 tab 10/04/18 Ticagrelor [Brilinta] 90 mg PO BID #60 tab 10/04/18 Allergies Allergy/AdvReac Type Severity Reaction Status Date / Time No Known Allergies Allergy Verified 10/06/18 10:55 Review of Systems ROS Statement: Those systems with pertinent positive or pertinent negative responses have been documented in the HPI. ROS Other: All systems not noted in ROS Statement are negative. Constitutional: Denies: fever Eyes: Denies: eye pain ENT: Denies: ear pain Respiratory: Reports: as per HPI. Denies: cough Cardiovascular: Reports: chest pain Endocrine: Reports: fatigue Gastrointestinal: Denies: abdominal pain Genitourinary: Denies: dysuria Musculoskeletal: Denies: back pain Skin: Denies: rash Neurological: Denies: weakness Psychiatric: Reports: anxiety Past Medical History Past Medical History: Myocardial Infarction ([place]) Last Myocardial Infarction Date:: 10/02/2018 History of Any Multi-Drug Resistant Organisms: None Reported Past Surgical History: Heart Catheterization With Stent Additional Past Surgical History / Comment(s): right eye surgery Past Anesthesia/Blood Transfusion Reactions: No Reported Reaction Past Psychological History: ADD/ADHD Smoking Status: Current every day smoker Past Alcohol Use History: Daily Past Drug Use History: None Reported - Past Family History Father Family Medical History: Cancer Additional Family Medical History / Comment(s): pancreatic cancer Mother Family Medical History: Cancer Additional Family Medical History / Comment(s): breast cancer, her father had colon cancer General Exam Limitations: no limitations General appearance: alert, in no apparent distress Head exam: Present: atraumatic Eye exam: Present: normal appearance, PERRL ENT exam: Present: normal oropharynx Neck exam: Present: normal inspection Respiratory exam: Present: normal lung sounds bilaterally. Absent: chest wall tenderness Cardiovascular Exam: Present: regular rate, normal rhythm Expanded Peripheral pulses: 2+: Radial (R), Radial (L), Dorsalis Pedis (R), Dorsalis Pedis (L) GI/Abdominal exam: Present: soft. Absent: distended, tenderness Extremities exam: Present: normal inspection. Absent: pedal edema, calf tenderness Neurological exam: Present: alert Psychiatric exam: Present: normal affect, normal mood Skin exam: Present: normal color Course Vital Signs 10/06/18 10/06/18 10/06/18 10:46 11:00 11:30 Temperature 98 F Pulse Rate 56 L 57 L 56 L Respiratory 18 16 14 Rate Blood Pressure 98/71 98/71 91/65 O2 Sat by Pulse 100 98 99 Oximetry EKG Findings - EKG Comments: EKG Findings:: Sinus bradycardia 57. ND 122. QRS 80. QT 420. QTc 408. Normal axis. Normal QRS. No acute ST change. Medical Decision Making - Medical Decision Making Patient reevaluated and resting comfortably in bed, symptom-free at this time. Patient and family updated on results and plan. Troponin has improved from previous troponin prior to discharge. Patient does have some mild renal insufficiency. Patient family updated on results and plan. Case was discussed in detail with Dr. jacob, covering with Dr. Nunn, who will admit. Cardiology will be placed on consult. - Lab Data Result diagrams: 10/06/18 10:52 04/27/19 10:52 Lab Results 10/06/18 10/06/18 10/06/18 Range/Units 10:52 10:52 10:52 WBC 12.9 H (3.8-10.6) k/uL RBC 4.81 (4.30-5.90) m/uL Hgb 14.9 (13.0-17.5) gm/dL Hct 44.8 (39.0-53.0) % MCV 93.1 (80.0-100.0) fL MCH 30.9 (25.0-35.0) pg MCHC 33.2 (31.0-37.0) g/dL RDW 14.2 (11.5-15.5) % Plt Count 320 (150-450) k/uL Neutrophils % 73 % Lymphocytes % 16 % Monocytes % 5 % Eosinophils % 3 % Basophils % 1 % Neutrophils # 9.5 H (1.3-7.7) k/uL Lymphocytes # 2.1 (1.0-4.8) k/uL Monocytes # 0.6 (0-1.0) k/uL Eosinophils # 0.4 (0-0.7) k/uL Basophils # 0.1 (0-0.2) k/uL PT 9.6 (9.0-12.0) sec INR 0.9 (<1.2) APTT 26.3 (22.0-30.0) sec Sodium 138 (137-145) mmol/L Potassium 5.0 (3.5-5.1) mmol/L Chloride 104 (98-107) mmol/L Carbon Dioxide 25 (22-30) mmol/L Anion Gap 9 mmol/L BUN 26 H (9-20) mg/dL Creatinine 1.51 H (0.66-1.25) mg/dL Est GFR (CKD-EPI)AfAm 59 (>60 ml/min/1.73 sqM) Est GFR (CKD-EPI)NonAf 51 (>60 ml/min/1.73 sqM) Glucose 111 H (74-99) mg/dL Calcium 9.8 (8.4-10.2) mg/dL Magnesium 2.3 (1.6-2.3) mg/dL Total Bilirubin 0.8 (0.2-1.3) mg/dL AST 33 (17-59) U/L ALT 41 (21-72) U/L Alkaline Phosphatase 70 (38-126) U/L Creatine Kinase 195 H (55-170) U/L CK-MB (CK-2) (0.0-2.4) ng/mL Troponin I (0.000-0.034) ng/mL Total Protein 7.2 (6.3-8.2) g/dL Albumin 4.3 (3.5-5.0) g/dL 10/06/18 Range/Units 10:52 WBC (3.8-10.6) k/uL RBC (4.30-5.90) m/uL Hgb (13.0-17.5) gm/dL Hct (39.0-53.0) % MCV (80.0-100.0) fL MCH (25.0-35.0) pg MCHC (31.0-37.0) g/dL RDW (11.5-15.5) % Plt Count (150-450) k/uL Neutrophils % % Lymphocytes % % Monocytes % % Eosinophils % % Basophils % % Neutrophils # (1.3-7.7) k/uL Lymphocytes # (1.0-4.8) k/uL Monocytes # (0-1.0) k/uL Eosinophils # (0-0.7) k/uL Basophils # (0-0.2) k/uL PT (9.0-12.0) sec INR (<1.2) APTT (22.0-30.0) sec Sodium (137-145) mmol/L Potassium (3.5-5.1) mmol/L Chloride (98-107) mmol/L Carbon Dioxide (22-30) mmol/L Anion Gap mmol/L BUN (9-20) mg/dL Creatinine (0.66-1.25) mg/dL Est GFR (CKD-EPI)AfAm (>60 ml/min/1.73 sqM) Est GFR (CKD-EPI)NonAf (>60 ml/min/1.73 sqM) Glucose (74-99) mg/dL Calcium (8.4-10.2) mg/dL Magnesium (1.6-2.3) mg/dL Total Bilirubin (0.2-1.3) mg/dL AST (17-59) U/L ALT (21-72) U/L Alkaline Phosphatase (38-126) U/L Creatine Kinase (55-170) U/L CK-MB (CK-2) 1.6 (0.0-2.4) ng/mL Troponin I 3.290 H* (0.000-0.034) ng/mL Total Protein (6.3-8.2) g/dL Albumin (3.5-5.0) g/dL - Radiology Data Radiology results: image reviewed (Chest x-ray shows no acute process) Disposition Clinical Impression: Chest pain Disposition: ADMITTED IP TO THIS HOSP Is patient prescribed a controlled substance at d/c from ED?: No Referrals: None,Stated [Primary Care Provider] - 1-2 days Decision Time: 12:34
[2018-10-06 11:18] LABS: Basophils # (A) 0.1 k/uL (0-0.2); Basophils % (A) 1 %; Eosinophils # (A) 0.4 k/uL (0-0.7); Eosinophils % (A) 3 %; HCT 44.8 % (39.0-53.0); HGB 14.9 gm/dL (13.0-17.5); Lymphocytes # (A) 2.1 k/uL (1.0-4.8); Lymphocytes % (A) 16 %; MCH 30.9 pg (25.0-35.0); MCHC 33.2 g/dL (31.0-37.0); MCV 93.1 fL (80.0-100.0); Mean Platelet Volume 7.4; Monocytes # (A) 0.6 k/uL (0-1.0); Monocytes % (A) 5 %; Neutrophils # (A) 9.5 k/uL (1.3-7.7); Neutrophils % (A) 73 %; Platelet Count 320 k/uL (150-450); RBC 4.81 m/uL (4.30-5.90); RDW 14.2 % (11.5-15.5); WBC 12.9 k/uL (3.8-10.6)
--- NOTE | 2018-10-06 11:26 | XR ---
EXAMINATION TYPE: XR chest 2V DATE OF EXAM: 10/06/2018 HISTORY: Chest Pain. REFERENCE: Previous study dated 10/02/2018. FINDINGS: The lungs remain clear. Pleural space are clear. The heart is not enlarged. IMPRESSION: NO ACUTE CARDIOTHORACIC ABNORMALITY.
[2018-10-06 11:27] LABS: INR 0.9 (<1.2)
[2018-10-06 11:28] LABS: Partial Thromboplastin Time 26.3 sec (22.0-30.0); Prothrombin Time 9.6 sec (9.0-12.0)
[2018-10-06 11:31] LABS: Albumin 4.3 g/dL (3.5-5.0); Calcium 9.8 mg/dL (8.4-10.2); Magnesium 2.3 mg/dL (1.6-2.3); Total Bilirubin 0.8 mg/dL (0.2-1.3); Total Protein 7.2 g/dL (6.3-8.2)
[2018-10-06 12:03] LABS: Creatine Kinase MB 1.6 ng/mL (0.0-2.4)
[2018-10-06 12:17] LABS: Troponin I 3.29 ng/mL (0.000-0.034)
[2018-10-06] MEDS ORDERED: NITROGLYCERIN SL TABS 0.4 MG TAB SUBLINGUAL PRN (12:34)
[2018-10-06 14:10] VITALS: BP 99/77; PULSE 59; RESP 18
[2018-10-06] MEDS ORDERED: NITROGLYCERIN OINT 1 INCH/GM PACKET TOPICAL SCH (18:00)
[2018-10-06] MEDS ORDERED: TICAGRELOR 90 MG TAB PO SCH (21:00)
[2018-10-07] MEDS ORDERED: ATORVASTATIN 80 MG TAB PO SCH (09:00)
[2018-10-07] MEDS ORDERED: ASPIRIN 81 MG PO SCH (09:00)
[2018-10-07] MEDS ORDERED: ASPIRIN 325 MG TAB PO SCH (09:00)
== END 2018-10-06 13:47 | disposition left against medical advice (07) ==
LOC: EC 10:40 → 3SCARD 12:34
PROVIDERS: ADMIT Internal Medicine; ATTEND Internal Medicine
DX: R07.89 Other chest pain (principal); Z53.21 Procedure and treatment not carried out due to patient leaving prior to being seen by health care provider; R06.00 Dyspnea, unspecified; R20.2 Paresthesia of skin; N28.9 Disorder of kidney and ureter, unspecified; I25.2 Old myocardial infarction; F90.9 Attention-deficit hyperactivity disorder, unspecified type; F17.200 Nicotine dependence, unspecified, uncomplicated; Z95.5 Presence of coronary angioplasty implant and graft; Z79.899 Other long term (current) drug therapy; Z79.82 Long term (current) use of aspirin; Z79.02 Long term (current) use of antithrombotics/antiplatelets; Z80.0 Family history of malignant neoplasm of digestive organs; Z80.3 Family history of malignant neoplasm of breast
CPT/HCPCS: 99285; 36415; 93005; 83880; 80053; 82550; 82553; 83735; 84484; 85025; 85610; 85730; 71046; G0378

== ENCOUNTER 2018-10-15 03:30 | Emergency (ER) | payer OTHER ==
[2018-10-15 04:01] LABS: Basophils # (A) 0.1 k/uL (0-0.2); Basophils % (A) 1 %; Eosinophils # (A) 0.4 k/uL (0-0.7); Eosinophils % (A) 3 %; HGB 13.4 gm/dL (13.0-17.5); Lymphocytes # (A) 1.6 k/uL (1.0-4.8); Lymphocytes % (A) 13 %; MCH 31.1 pg (25.0-35.0); MCHC 33.5 g/dL (31.0-37.0); MCV 92.9 fL (80.0-100.0); Mean Platelet Volume 6.9; Monocytes # (A) 0.6 k/uL (0-1.0); Monocytes % (A) 5 %; Neutrophils # (A) 9.8 k/uL (1.3-7.7); Neutrophils % (A) 77 %; Platelet Count 344 k/uL (150-450); RDW 13.4 % (11.5-15.5); WBC 12.7 k/uL (3.8-10.6)
--- NOTE | 2018-10-15 04:08 | ED ---
Chest Pain HPI - General Chief Complaint: Chest Pain Stated Complaint: Chest Pain, SOB Time Seen by Provider: 10/15/18 03:49 Source: patient Mode of arrival: ambulatory Limitations: no limitations - History of Present Illness Initial Comments: Jeffrey benton a 58yo male with PMH of known CAD and STEMI on 10/02, patient returns to the ER today for evaluation of chest pain. Patient ports that he was feeling well throughout the day yesterday, he went out on his boat was feeling quite well. Patient reports he felt fine when he went to bed but he woke from sleep experiencing chest pain and palpitations. Patient reports that he took aspirin and nitro and began to feel little bit better he then went back to sleep however he woke again experiencing chest pain at which time he decided to come to the ER for further evaluation. PAtient reports that this pain is not similar to heart attack pain, this pain is more lateral and is reproducible with palpation of the pec muscle. Patient does state that he was using his muscles to pull start his boat yesterday. Patient does report that he has woken up during the night multiple times since having the STEMI and has been experiencing with palpitations and a feeling of shortness of breath, patient does express some concern that he is having some anxiety since the heart attack. - Related Data Home Medications Medication Instructions Recorded Confirmed Methylphenidate HCl [Ritalin] 10 mg PO TID 10/02/18 10/15/18 Previous Rx's Medication Instructions Recorded Aspirin 81 mg PO DAILY #30 chew 10/04/18 Atorvastatin [Lipitor] 80 mg PO HS #30 tab 10/04/18 Lisinopril [Zestril] 10 mg PO HS #30 tab 10/04/18 Metoprolol Tartrate [Lopressor] 25 mg PO BID #60 tab 10/04/18 Nitroglycerin Sl Tabs [Nitrostat] 0.4 mg SUBLINGUAL Q5M PRN #25 tab 10/04/18 Ticagrelor [Brilinta] 90 mg PO BID #60 tab 10/04/18 Allergies Allergy/AdvReac Type Severity Reaction Status Date / Time No Known Allergies Allergy Verified 10/15/18 07:50 Review of Systems ROS Statement: Those systems with pertinent positive or pertinent negative responses have been documented in the HPI. ROS Other: All systems not noted in ROS Statement are negative. Past Medical History Past Medical History: Myocardial Infarction ([place]) Last Myocardial Infarction Date:: 10/02/2018 History of Any Multi-Drug Resistant Organisms: None Reported Past Surgical History: Heart Catheterization With Stent Additional Past Surgical History / Comment(s): right eye surgery Past Anesthesia/Blood Transfusion Reactions: No Reported Reaction Past Psychological History: ADD/ADHD Smoking Status: Current every day smoker Past Alcohol Use History: Daily Past Drug Use History: None Reported - Past Family History Father Family Medical History: Cancer Additional Family Medical History / Comment(s): pancreatic cancer Mother Family Medical History: Cancer Additional Family Medical History / Comment(s): breast cancer, her father had colon cancer General Exam - General Exam Comments Initial Comments: Physical Exam GENERAL: Patient is well-developed and well-nourished. Patient is nontoxic and well- hydrated and is in no distress. HENT: Normocephalic, Atraumatic. EYES: PERRL, EOMI PULMONARY: Unlabored respirations. No audible rales rhonchi or wheezing was noted. CARDIOVASCULAR: There is a regular rate and rhythm without any murmurs gallops or rubs. ABDOMEN: Soft and nontender with normal bowel sounds. SKIN: Skin is clear with no lesions or rashes and otherwise unremarkable. : Deferred NEUROLOGIC: Patient is alert and oriented x3. Moving all extremities spontaneously MUSCULOSKELETAL: Normal extremities with adequate strength and full range of motion. No lower extremity swelling or edema. No calf tenderness. PSYCHIATRIC: Normal psychiatric evaluation. Limitations: no limitations Limitations: no limitations Course Vital Signs 10/15/18 10/15/18 10/15/18 03:34 03:50 06:35 Temperature 97.9 F Pulse Rate 55 L 51 L Pulse Rate [ 55 L Plastic Technician ] Respiratory 18 16 Rate Blood Pressure 116/71 107/71 O2 Sat by Pulse 98 96 Oximetry 10/15/18 10/15/18 08:40 08:45 Temperature 98.4 F 98.4 F Pulse Rate 58 L 58 L Pulse Rate [ Plastic Technician ] Respiratory 18 18 Rate Blood Pressure 108/63 108/63 O2 Sat by Pulse 98 98 Oximetry Chest Pain MDM - MDM The patient was seen and evaluated, history was obtained from patient. The patient did have a STEMI 13 days ago, he has subsequently been reevaluated for chest pain. Patient reports he's been waking during the night with palpitations multiple times since having STEMI does feel that he is experiencing some anxiety stabbing STEMI. Patient does state that he is feeling quite well yesterday he was out on his boat. Tonight he began experiencing pain in the lateral left side of his chest. Pain is reproducible. Patient did take nitro prior to coming to the emergency department not certain if that changed his chest pain. Cardiac workup was initiated Serial troponin 0.018, repeat will be ordered at 3 hours Repeat troponin was again within normal limits Patient care was discussed with air export logistics manager Dr. Pastrana who agrees with plan for discharge home. Recommends follow-up in the air export logistics manager's office outpatient. This plan was discussed with patient who is agreeable. Patient and at bedside post feel that his discomfort is likely musculoskeletal in nature. I did advise the patient to take it easy, not perform any strenuous tasks so shortly after having had a heart attack. Patient advised to return to the ER for any change in his condition. All questions pertaining care were answered return parameters were discussed the patient was discharged home in stable condition. Disposition Clinical Impression: Atypical chest pain Disposition: HOME SELF-CARE Condition: Stable Instructions (If sedation given, give patient instructions): Chest Pain (ED) Is patient prescribed a controlled substance at d/c from ED?: No Referrals: None,Stated [Primary Care Provider] - 1-2 days
[2018-10-15 04:09] LABS: Partial Thromboplastin Time 26.3 sec (22.0-30.0); Prothrombin Time 10.5 sec (9.0-12.0)
--- NOTE | 2018-10-15 04:17 | XR ---
EXAM: XR Chest, 2 Views CLINICAL HISTORY: ITS.REASON XR Reason: Chest Pain TECHNIQUE: Frontal and lateral views of the chest. COMPARISON: 10/06/18 x-ray IMPRESSION: Normal heart. No consolidation or pleural effusion. Overall unremarkable exam.
[2018-10-15 04:25] LABS: Albumin 4.3 g/dL (3.5-5.0); Calcium 10.7 mg/dL (8.4-10.2); Magnesium 2.2 mg/dL (1.6-2.3); Potassium 4.4 mmol/L (3.5-5.1); Total Bilirubin 0.6 mg/dL (0.2-1.3); Total Protein 7.1 g/dL (6.3-8.2)
[2018-10-15 08:41] VITALS: BP 108/63; PULSE 58; RESP 18; TEMP 98.4
== END 2018-10-15 08:45 | disposition home or self-care (01) ==
LOC: EC 03:30
DX: R07.89 Other chest pain (principal); R06.02 Shortness of breath; R00.2 Palpitations; I25.2 Old myocardial infarction; I25.10 Atherosclerotic heart disease of native coronary artery without angina pectoris; F17.200 Nicotine dependence, unspecified, uncomplicated; Z79.899 Other long term (current) drug therapy; Z95.5 Presence of coronary angioplasty implant and graft
CPT/HCPCS: 36415; 71046; 80053; 83735; 83880; 84484; 85025; 85610; 85730; 93005; 99285

== ENCOUNTER 2018-12-01 03:47 | Emergency (ER) | payer OTHER ==
[2018-12-01] MEDS ORDERED: ASPIRIN 81 MG PO STA (04:27)
--- NOTE | 2018-12-01 04:32 | ED ---
General Adult HPI - General Chief complaint: Chest Pain Stated complaint: chest pain Time Seen by Provider: 12/01/18 03:52 Source: patient Mode of arrival: ambulatory Limitations: no limitations - History of Present Illness Initial comments: Dictation was produced using [employer] dictation software. please excuse any grammatical, word or spelling errors. Chief Complaint: 58-year-old male presents with chest pain. History of Present Illness: 58-year-old male past medical history coronary artery disease status post stent several months ago. He presents today with chest pain that awoke him from sleep. Patient states pain is sharp migratory and anterior to the left and right chest. Patient states that he began coughing as well, to bed in his usual state of health. Patient reports eating more than usual today he had a large bowl spaghetti and about upon the barbecue ribs states he ate later than normal as well. Patient is here today because he is worried he is having another heart attack. Denies any radiation of pain to her shoulders. Patient's symptoms are not exacerbated by exertion. No diaphoresis or nausea. The ROS documented in this emergency department record has been reviewed and confirmed by me. Those systems with pertinent positive or negative responses have been documented in the HPI. All other systems are other negative and/or noncontributory. PHYSICAL EXAM: General Impression: Alert and oriented x3, not in acute distress HEENT: Normocephalic atraumatic, extra-ocular movements intact, pupils equal and reactive to light bilaterally, mucous membranes moist. Cardiovascular: Heart regular rate and rhythm, S1&S2 audible, no murmurs, rubs or gallops Chest: Lungs clear to auscultation bilaterally, no rhonchi, no wheeze, no rales Abdomen: Bowel sounds present, abdomen soft, non-tender, non-distended, no organomegaly Musculoskeletal: Pulses present and equal in all extremities, no peripheral edema Motor: no focal deficits noted Neurological: CN II-XII grossly intact, no focal motor or sensory deficits noted Skin: Intact with no visualized rashes Psych: Normal affect and mood ED course: 58-year-old male with atypical chest pain with typical features. Vital signs upon arrival are within acceptable limits. Laboratory evaluation obtained. CBC, coag panel, metabolic panel is u nremarkable. Cardiac enzymes negative. Lipase negative. Chest x-ray is nonacute. Patient given some Phenergan with codeine for some relief of coughing. This point patient's clinical presentation is atypical chest pain with typical features. Symptomatology is more atypical. He does have multiple risk factors. Discussed the patient being admitted for suture troponins. He states that he is okay with one negative troponin. I advised that this is not standard of care and that 2 sets of troponins would be more reasonable based on the heart study. Patient wants to be discharged. Patient will be discharged. He is told to return to the emergency department if he has any worsening clinica l symptoms. Patient displays understanding. He understands that he would be discharged with an incomplete workup that we are not able to appropriately assess his risk with just one troponin. Patient understands and her sensation sprain significant morbidity and even mortality if he does not have serial troponins. Nonetheless, patient wants to be discharge. This point patient's symptomatology does not suggest ACS however there is a possibility. Patient to be discharge. Is understandable and agreeable to come back to the emergency department if he has any concerning symptoms. EKG interpretation: Ventricular rate 61, normal sinus rhythm,. Interval 136, rigors 80, QTc 424. No NM prolongation, no QTC prolongation, no ST or T-wave changes noted. EKG compared to [default value] showing no changes. Overall, this EKG is unremarkable - Related Data Home Medications Medication Instructions Recorded Confirmed Methylphenidate HCl [Ritalin] 10 mg PO TID 10/02/18 12/01/18 Clopidogrel [Plavix] 75 mg PO DAILY 12/01/18 12/01/18 Lisinopril [Zestril] 5 mg PO HS 12/01/18 12/01/18 Metoprolol Tartrate [Lopressor] 12.5 mg PO BID 12/01/18 12/01/18 Previous Rx's Medication Instructions Recorded Aspirin 81 mg PO DAILY #30 chew 10/04/18 Atorvastatin [Lipitor] 80 mg PO HS #30 tab 10/04/18 Nitroglycerin Sl Tabs [Nitrostat] 0.4 mg SUBLINGUAL Q5M PRN #25 tab 10/04/18 Allergies Allergy/AdvReac Type Severity Reaction Status Date / Time No Known Allergies Allergy Verified 12/01/18 03:54 Review of Systems ROS Statement: Those systems with pertinent positive or pertinent negative responses have been documented in the HPI. ROS Other: All systems not noted in ROS Statement are negative. Past Medical History Past Medical History: Myocardial Infarction ([place]) Last Myocardial Infarction Date:: 10/02/2018 History of Any Multi-Drug Resistant Organisms: None Reported Past Surgical History: Heart Catheterization With Stent Additional Past Surgical History / Comment(s): right eye surgery Past Anesthesia/Blood Transfusion Reactions: No Reported Reaction Past Psychological History: ADD/ADHD Smoking Status: Current some day smoker Past Alcohol Use History: Daily Past Drug Use History: None Reported - Past Family History Father Family Medical History: Cancer Additional Family Medical History / Comment(s): pancreatic cancer Mother Family Medical History: Cancer Additional Family Medical History / Comment(s): breast cancer, her father had colon cancer General Exam Limitations: no limitations Course Vital Signs 12/01/18 12/01/18 12/01/18 03:48 04:33 04:34 Temperature 97.7 F Pulse Rate 71 96 Pulse Rate [ 96 Sales Account Specialist ] Respiratory 18 20 Rate Blood Pressure 104/64 101/70 O2 Sat by Pulse 97 97 Oximetry 12/01/18 05:00 Temperature Pulse Rate 87 Pulse Rate [ Sales Account Specialist ] Respiratory 18 Rate Blood Pressure 105/65 O2 Sat by Pulse 97 Oximetry Medical Decision Making - Lab Data Result diagrams: 12/01/18 04:05 12/01/18 04:05 Lab Results 12/01/18 12/01/18 12/01/18 Range/Units 04:05 04:05 04:05 WBC 9.9 (3.8-10.6) k/uL RBC 4.66 (4.30-5.90) m/uL Hgb 14.2 (13.0-17.5) gm/dL Hct 44.1 (39.0-53.0) % MCV 94.7 (80.0-100.0) fL MCH 30.5 (25.0-35.0) pg MCHC 32.2 (31.0-37.0) g/dL RDW 15.0 (11.5-15.5) % Plt Count 254 (150-450) k/uL Neutrophils % 66 % Lymphocytes % 18 % Monocytes % 5 % Eosinophils % 10 % Basophils % 1 % Neutrophils # 6.5 (1.3-7.7) k/uL Lymphocytes # 1.7 (1.0-4.8) k/uL Monocytes # 0.5 (0-1.0) k/uL Eosinophils # 0.9 H (0-0.7) k/uL Basophils # 0.1 (0-0.2) k/uL PT 9.8 (9.0-12.0) sec INR 0.9 (<1.2) APTT 24.3 (22.0-30.0) sec Sodium 142 (137-145) mmol/L Potassium 3.7 (3.5-5.1) mmol/L Chloride 103 (98-107) mmol/L Carbon Dioxide 32 H (22-30) mmol/L Anion Gap 7 mmol/L BUN 28 H (9-20) mg/dL Creatinine 1.56 H (0.66-1.25) mg/dL Est GFR (CKD-EPI)AfAm 56 (>60 ml/min/1.73 sqM) Est GFR (CKD-EPI)NonAf 49 (>60 ml/min/1.73 sqM) Glucose 121 H (74-99) mg/dL Calcium 9.5 (8.4-10.2) mg/dL Magnesium 2.3 (1.6-2.3) mg/dL Total Bilirubin 0.2 (0.2-1.3) mg/dL AST 28 (17-59) U/L ALT 47 (21-72) U/L Alkaline Phosphatase 62 (38-126) U/L Troponin I (0.000-0.034) ng/mL Total Protein 6.4 (6.3-8.2) g/dL Albumin 3.9 (3.5-5.0) g/dL Lipase 188 (23-300) U/L 12/01/18 Range/Units 04:05 WBC (3.8-10.6) k/uL RBC (4.30-5.90) m/uL Hgb (13.0-17.5) gm/dL Hct (39.0-53.0) % MCV (80.0-100.0) fL MCH (25.0-35.0) pg MCHC (31.0-37.0) g/dL RDW (11.5-15.5) % Plt Count (150-450) k/uL Neutrophils % % Lymphocytes % % Monocytes % % Eosinophils % % Basophils % % Neutrophils # (1.3-7.7) k/uL Lymphocytes # (1.0-4.8) k/uL Monocytes # (0-1.0) k/uL Eosinophils # (0-0.7) k/uL Basophils # (0-0.2) k/uL PT (9.0-12.0) sec INR (<1.2) APTT (22.0-30.0) sec Sodium (137-145) mmol/L Potassium (3.5-5.1) mmol/L Chloride (98-107) mmol/L Carbon Dioxide (22-30) mmol/L Anion Gap mmol/L BUN (9-20) mg/dL Creatinine (0.66-1.25) mg/dL Est GFR (CKD-EPI)AfAm (>60 ml/min/1.73 sqM) Est GFR (CKD-EPI)NonAf (>60 ml/min/1.73 sqM) Glucose (74-99) mg/dL Calcium (8.4-10.2) mg/dL Magnesium (1.6-2.3) mg/dL Total Bilirubin (0.2-1.3) mg/dL AST (17-59) U/L ALT (21-72) U/L Alkaline Phosphatase (38-126) U/L Troponin I <0.012 (0.000-0.034) ng/mL Total Protein (6.3-8.2) g/dL Albumin (3.5-5.0) g/dL Lipase (23-300) U/L Disposition Clinical Impression: Chest pain Disposition: HOME SELF-CARE Condition: Fair Instructions (If sedation given, give patient instructions): Chest Pain (ED) Is patient prescribed a controlled substance at d/c from ED?: No Referrals: Nonstaff,Physician [Primary Care Provider] - 1-2 days Time of Disposition: 06:00
[2018-12-01 04:38] LABS: Basophils # (A) 0.1 k/uL (0-0.2); Basophils % (A) 1 %; Eosinophils # (A) 0.9 k/uL (0-0.7); Eosinophils % (A) 10 %; HCT 44.1 % (39.0-53.0); HGB 14.2 gm/dL (13.0-17.5); Lymphocytes # (A) 1.7 k/uL (1.0-4.8); Lymphocytes % (A) 18 %; MCH 30.5 pg (25.0-35.0); MCHC 32.2 g/dL (31.0-37.0); MCV 94.7 fL (80.0-100.0); Mean Platelet Volume 7.2; Monocytes # (A) 0.5 k/uL (0-1.0); Monocytes % (A) 5 %; Neutrophils # (A) 6.5 k/uL (1.3-7.7); Neutrophils % (A) 66 %; Platelet Count 254 k/uL (150-450); RBC 4.66 m/uL (4.30-5.90); WBC 9.9 k/uL (3.8-10.6)
[2018-12-01 04:46] LABS: INR 0.9 (<1.2); Partial Thromboplastin Time 24.3 sec (22.0-30.0); Prothrombin Time 9.8 sec (9.0-12.0)
[2018-12-01 04:54] LABS: Albumin 3.9 g/dL (3.5-5.0); Calcium 9.5 mg/dL (8.4-10.2); Magnesium 2.3 mg/dL (1.6-2.3); Potassium 3.7 mmol/L (3.5-5.1); Total Bilirubin 0.2 mg/dL (0.2-1.3); Total Protein 6.4 g/dL (6.3-8.2)
--- NOTE | 2018-12-01 05:15 | XR ---
EXAM: XR Chest, 2 Views CLINICAL HISTORY: ITS.REASON XR Reason: Chest Pain TECHNIQUE: Frontal and lateral views of the chest. COMPARISON: No relevant prior studies available. FINDINGS: Lungs: Unremarkable. No consolidation. Pleural space: Unremarkable. No pneumothorax. Heart: No suspicious enlargement. Mediastinum: Unremarkable. Bones/joints: No acute fracture. IMPRESSION: No acute findings.
[2018-12-01 05:29] VITALS: RESP 18
[2018-12-01] MEDS ORDERED: PROMETHAZ-COD 6.25-10 MG/5 ML 5 ML CUP PO STA (05:36)
[2018-12-01 06:09] VITALS: BP 103/69; PULSE 77; TEMP 98
== END 2018-12-01 06:12 | disposition home or self-care (01) ==
LOC: EC 03:47
DX: R07.89 Other chest pain (principal); R05 Cough; I25.2 Old myocardial infarction; I25.10 Atherosclerotic heart disease of native coronary artery without angina pectoris; F90.9 Attention-deficit hyperactivity disorder, unspecified type; F17.200 Nicotine dependence, unspecified, uncomplicated; Z95.5 Presence of coronary angioplasty implant and graft; Z79.02 Long term (current) use of antithrombotics/antiplatelets; Z79.899 Other long term (current) drug therapy
CPT/HCPCS: 36415; 71046; 80053; 83690; 83735; 84484; 85025; 85610; 85730; 93005; 99285

== ENCOUNTER 2019-04-06 12:34 | Emergency (ER) | payer BC ==
[2019-04-06 12:38] VITALS: TEMP 97.8
[2019-04-06] MEDS ORDERED: NITROGLYCERIN OINT 1 INCH/GM PACKET TOPICAL STA (12:58)
[2019-04-06] MEDS ORDERED: ASPIRIN 81 MG PO STA (12:58)
[2019-04-06 13:12] LABS: Basophils # (A) 0.1 k/uL (0-0.2); Basophils % (A) 1 %; Eosinophils # (A) 0.4 k/uL (0-0.7); Eosinophils % (A) 5 %; HCT 44.3 % (39.0-53.0); HGB 15.1 gm/dL (13.0-17.5); Lymphocytes # (A) 1.6 k/uL (1.0-4.8); Lymphocytes % (A) 19 %; MCH 32.4 pg (25.0-35.0); MCHC 34.1 g/dL (31.0-37.0); MCV 95.2 fL (80.0-100.0); Mean Platelet Volume 5.8; Monocytes # (A) 0.5 k/uL (0-1.0); Monocytes % (A) 6 %; Neutrophils # (A) 5.8 k/uL (1.3-7.7); Neutrophils % (A) 67 %; Platelet Count 261 k/uL (150-450); RBC 4.65 m/uL (4.30-5.90); RDW 13.8 % (11.5-15.5); WBC 8.5 k/uL (3.8-10.6)
--- NOTE | 2019-04-06 13:12 | ED ---
General Adult HPI - General Chief complaint: Chest Pain Stated complaint: chest pain Time Seen by Provider: 04/06/19 12:40 Source: patient, RN notes reviewed Mode of arrival: wheelchair Limitations: no limitations - History of Present Illness Initial comments: Patient is a pleasant 58-year-old male presenting to the emergency Department with complaints of chest discomfort. Onset of symptoms was 2-3 days ago. Symptoms of been waxing and waning. Discomfort is at worst 6/10. Discomfort currently is 3/10. Discomfort feels like pressure. There is some tingling of his left anger's. Patient does have some associated dyspnea. Dyspnea and chest discomfort of both worsened with exertion. No nausea. Patient did feel a little bit sweaty last night. Patient states symptoms are similar to symptoms he had prior to his heart attack around 6 months ago however symptoms are not quite as bad as his symptoms he had during his heart attack. - Related Data Home Medications Medication Instructions Recorded Confirmed Methylphenidate HCl [Ritalin] 10 mg PO TID 10/02/18 04/06/19 Clopidogrel [Plavix] 75 mg PO DAILY 12/01/18 04/06/19 Lisinopril [Zestril] 5 mg PO HS 12/01/18 04/06/19 Metoprolol Tartrate [Lopressor] 12.5 mg PO BID 12/01/18 04/06/19 Previous Rx's Medication Instructions Recorded Aspirin 81 mg PO DAILY #30 chew 10/04/18 Atorvastatin [Lipitor] 80 mg PO HS #30 tab 10/04/18 Nitroglycerin Sl Tabs [Nitrostat] 0.4 mg SUBLINGUAL Q5M PRN #25 tab 10/04/18 Allergies Allergy/AdvReac Type Severity Reaction Status Date / Time No Known Allergies Allergy Verified 04/06/19 14:12 Review of Systems ROS Statement: Those systems with pertinent positive or pertinent negative responses have been documented in the HPI. ROS Other: All systems not noted in ROS Statement are negative. Constitutional: Denies: fever Eyes: Denies: eye pain ENT: Denies: ear pain Respiratory: Reports: as per HPI Cardiovascular: Reports: as per HPI, chest pain Endocrine: Reports: fatigue Gastrointestinal: Denies: abdominal pain, nausea Genitourinary: Denies: dysuria Musculoskeletal: Denies: back pain Skin: Denies: rash Neurological: Denies: weakness Past Medical History Past Medical History: Myocardial Infarction ([place]) Last Myocardial Infarction Date:: 10/02/2018 History of Any Multi-Drug Resistant Organisms: None Reported Past Surgical History: Heart Catheterization With Stent Additional Past Surgical History / Comment(s): right eye surgery Past Anesthesia/Blood Transfusion Reactions: No Reported Reaction Past Psychological History: ADD/ADHD Smoking Status: Current some day smoker Past Alcohol Use History: Daily Past Drug Use History: None Reported - Past Family History Father Family Medical History: Cancer Additional Family Medical History / Comment(s): pancreatic cancer Mother Family Medical History: Cancer Additional Family Medical History / Comment(s): breast cancer, her father had colon cancer General Exam Limitations: no limitations General appearance: alert, in no apparent distress Head exam: Present: normocephalic Eye exam: Present: normal appearance, PERRL ENT exam: Present: normal oropharynx Neck exam: Present: normal inspection Respiratory exam: Present: normal lung sounds bilaterally. Absent: chest wall tenderness Cardiovascular Exam: Present: regular rate, normal rhythm Expanded Peripheral pulses: 2+: Radial (R), Radial (L), Posterior Tibialis (R), Posterior Tibialis (L), Dorsalis Pedis (R), Dorsalis Pedis (L) GI/Abdominal exam: Present: soft. Absent: tenderness Extremities exam: Present: normal inspection. Absent: pedal edema, calf tenderness Neurological exam: Present: alert Psychiatric exam: Present: normal affect, normal mood Skin exam: Present: normal color Course Vital Signs 04/06/19 04/06/19 12:35 13:22 Temperature 97.8 F Pulse Rate 53 L Pulse Rate [ 56 L Office Administrator ] Respiratory 18 Rate Blood Pressure 112/68 O2 Sat by Pulse 98 Oximetry EKG Findings - EKG Comments: EKG Findings:: Sinus bradycardia 51. WI 128. QRS 92. QT 424. QTC 390. Normal axis. Normal QRS. No acute ST change. Medical Decision Making - Medical Decision Making Patient reevaluated and resting comfortably in bed. Patient is updated on results. Patient is advised admission for further evaluation including monitoring and internal medicine evaluation and cardiology consult and repeat testing. Patient is made aware of limitations of tests and emergency department. Patient is made aware that heart attack has not been ruled out. Patient is also made aware that heart attack could occur in the near future. Patient is made aware that all causes of his discomfort have not been ruled out at this time. Patient does demonstrate medical decision making. is present. Patient refuses admission. Patient states he does have an appointment Monday with his fire inspector and will keep that. Patient is apprised to continue with aspirin and to return for any worsening symptoms. Patient is aware that he is leaving AGAINST MEDICAL ADVICE. - Lab Data Result diagrams: 04/06/19 12:45 04/06/19 12:45 Lab Results 04/06/19 04/06/19 04/06/19 Range/Units 12:45 12:45 12:45 WBC 8.5 (3.8-10.6) k/uL RBC 4.65 (4.30-5.90) m/uL Hgb 15.1 (13.0-17.5) gm/dL Hct 44.3 (39.0-53.0) % MCV 95.2 (80.0-100.0) fL MCH 32.4 (25.0-35.0) pg MCHC 34.1 (31.0-37.0) g/dL RDW 13.8 (11.5-15.5) % Plt Count 261 (150-450) k/uL Neutrophils % 67 % Lymphocytes % 19 % Monocytes % 6 % Eosinophils % 5 % Basophils % 1 % Neutrophils # 5.8 (1.3-7.7) k/uL Lymphocytes # 1.6 (1.0-4.8) k/uL Monocytes # 0.5 (0-1.0) k/uL Eosinophils # 0.4 (0-0.7) k/uL Basophils # 0.1 (0-0.2) k/uL PT (9.0-12.0) sec INR (<1.2) APTT (22.0-30.0) sec D-Dimer (<0.60) mg/L FEU Sodium 140 (137-145) mmol/L Potassium 4.1 (3.5-5.1) mmol/L Chloride 107 (98-107) mmol/L Carbon Dioxide 24 (22-30) mmol/L Anion Gap 9 mmol/L BUN 20 (9-20) mg/dL Creatinine 1.17 (0.66-1.25) mg/dL Est GFR (CKD-EPI)AfAm 80 (>60 ml/min/1.73 sqM) Est GFR (CKD-EPI)NonAf 69 (>60 ml/min/1.73 sqM) Glucose 137 H (74-99) mg/dL Calcium 9.6 (8.4-10.2) mg/dL Magnesium 1.9 (1.6-2.3) mg/dL Total Bilirubin 0.4 (0.2-1.3) mg/dL AST 25 (17-59) U/L ALT 31 (21-72) U/L Alkaline Phosphatase 60 (38-126) U/L Troponin I (0.000-0.034) ng/mL NT-Pro-B Natriuret Pep 113 pg/mL Total Protein 6.9 (6.3-8.2) g/dL Albumin 3.9 (3.5-5.0) g/dL 04/06/19 04/06/19 Range/Units 12:45 12:45 WBC (3.8-10.6) k/uL RBC (4.30-5.90) m/uL Hgb (13.0-17.5) gm/dL Hct (39.0-53.0) % MCV (80.0-100.0) fL MCH (25.0-35.0) pg MCHC (31.0-37.0) g/dL RDW (11.5-15.5) % Plt Count (150-450) k/uL Neutrophils % % Lymphocytes % % Monocytes % % Eosinophils % % Basophils % % Neutrophils # (1.3-7.7) k/uL Lymphocytes # (1.0-4.8) k/uL Monocytes # (0-1.0) k/uL Eosinophils # (0-0.7) k/uL Basophils # (0-0.2) k/uL PT 9.9 (9.0-12.0) sec INR 0.9 (<1.2) APTT 26.7 (22.0-30.0) sec D-Dimer 0.22 (<0.60) mg/L FEU Sodium (137-145) mmol/L Potassium (3.5-5.1) mmol/L Chloride (98-107) mmol/L Carbon Dioxide (22-30) mmol/L Anion Gap mmol/L BUN (9-20) mg/dL Creatinine (0.66-1.25) mg/dL Est GFR (CKD-EPI)AfAm (>60 ml/min/1.73 sqM) Est GFR (CKD-EPI)NonAf (>60 ml/min/1.73 sqM) Glucose (74-99) mg/dL Calcium (8.4-10.2) mg/dL Magnesium (1.6-2.3) mg/dL Total Bilirubin (0.2-1.3) mg/dL AST (17-59) U/L ALT (21-72) U/L Alkaline Phosphatase (38-126) U/L Troponin I <0.012 (0.000-0.034) ng/mL NT-Pro-B Natriuret Pep pg/mL Total Protein (6.3-8.2) g/dL Albumin (3.5-5.0) g/dL - Radiology Data Radiology results: image reviewed (Chest x-ray: Cannot exclude early infiltrate left base) Disposition Clinical Impression: Chest pain Disposition: Left Against Medical Advice Instructions (If sedation given, give patient instructions): Chest Pain (ED) Additional Instructions: You are leaving AGAINST MEDICAL ADVICE. Please follow-up with your primary care physician and fire inspector being of the week. Return for pain, difficulty breathing, worsening symptoms or any other concerns. Is patient prescribed a controlled substance at d/c from ED?: No Referrals: Bereket Rae MD [STAFF PHYSICIAN] - 1-2 days Krzysztof Thibodeaux MD [STAFF PHYSICIAN] - 1-2 days Time of Disposition: 14:40
[2019-04-06 13:26] LABS: Albumin 3.9 g/dL (3.5-5.0); Calcium 9.6 mg/dL (8.4-10.2); Magnesium 1.9 mg/dL (1.6-2.3); Potassium 4.1 mmol/L (3.5-5.1); Total Bilirubin 0.4 mg/dL (0.2-1.3); Total Protein 6.9 g/dL (6.3-8.2)
[2019-04-06 13:29] LABS: D-Dimer 0.22 mg/L FEU (<0.60); INR 0.9 (<1.2); Partial Thromboplastin Time 26.7 sec (22.0-30.0); Prothrombin Time 9.9 sec (9.0-12.0)
--- NOTE | 2019-04-06 13:45 | XR ---
EXAMINATION TYPE: XR chest 2V DATE OF EXAM: 04/06/2019 HISTORY: Chest Pain. REFERENCE: Previous study dated 12/01/2018. FINDINGS: There is minimal infiltrate adjacent to the left heart border likely in the left lingula. L ungs otherwise clear. Pleural space are clear. The heart is not enlarged. IMPRESSION: QUESTIONABLE DEVELOPING LEFT LINGULAR PNEUMONIA.
[2019-04-06 15:18] VITALS: BP 105/64; PULSE 58; RESP 16
== END 2019-04-06 15:18 | disposition left against medical advice (07) ==
LOC: EC 12:34
DX: R07.89 Other chest pain (principal); R06.00 Dyspnea, unspecified; R20.2 Paresthesia of skin; I25.2 Old myocardial infarction; F17.200 Nicotine dependence, unspecified, uncomplicated; F90.9 Attention-deficit hyperactivity disorder, unspecified type; Z79.02 Long term (current) use of antithrombotics/antiplatelets; Z79.899 Other long term (current) drug therapy; Z95.5 Presence of coronary angioplasty implant and graft
CPT/HCPCS: 36415; 71046; 80053; 83735; 83880; 84484; 85025; 85379; 85610; 85730; 93005; 99285

== ENCOUNTER 2019-09-18 21:13 | Inpatient (IN) | payer BC ==
--- NOTE | 2019-09-18 21:32 | ED ---
General Adult HPI - General Stated complaint: Chest Pain Time Seen by Provider: 09/18/19 21:17 Source: patient, EMS, RN notes reviewed, old records reviewed - History of Present Illness Initial comments: 59-year-old male history of CAD presents for evaluation of central substernal chest pain and pressure. Patient's symptoms began approximately one hour prior to arrival. Initially he plans to drive himself to the emergency department that the pain was too severe and EMS was called. He was transported by EMS with stable vitals. He had taken a total of 4 nitroglycerin prior to arrival, he takes aspirin and Plavix as prescribed. Pain is almost completely resolved at the time my evaluation. No associated nausea vomiting. No abdominal pain. - Related Data Home Medications Medication Instructions Recorded Confirmed Methylphenidate HCl [Ritalin] 10 mg PO TID 10/02/18 09/18/19 Clopidogrel [Plavix] 75 mg PO DAILY 12/01/18 09/18/19 Lisinopril [Zestril] 5 mg PO HS 12/01/18 09/18/19 Metoprolol Tartrate [Lopressor] 12.5 mg PO DAILY 12/01/18 09/18/19 Previous Rx's Medication Instructions Recorded Aspirin 81 mg PO DAILY #30 chew 10/04/18 Atorvastatin [Lipitor] 80 mg PO HS #30 tab 10/04/18 Nitroglycerin Sl Tabs [Nitrostat] 0.4 mg SUBLINGUAL Q5M PRN #25 tab 10/04/18 Allergies Allergy/AdvReac Type Severity Reaction Status Date / Time No Known Allergies Allergy Verified 09/18/19 22:36 Review of Systems ROS Statement: Those systems with pertinent positive or pertinent negative responses have been documented in the HPI. ROS Other: All systems not noted in ROS Statement are negative. Past Medical History Past Medical History: Myocardial Infarction ([place]) Last Myocardial Infarction Date:: 10/02/2018 History of Any Multi-Drug Resistant Organisms: None Reported Past Surgical History: Heart Catheterization With Stent Additional Past Surgical History / Comment(s): right eye surgery Past Anesthesia/Blood Transfusion Reactions: No Reported Reaction Past Psychological History: ADD/ADHD Smoking Status: Current some day smoker Past Alcohol Use History: Daily Past Drug Use History: None Reported - Past Family History Father Family Medical History: Cancer Additional Family Medical History / Comment(s): pancreatic cancer Mother Family Medical History: Cancer Additional Family Medical History / Comment(s): breast cancer, her father had colon cancer General Exam General appearance: alert, in no apparent distress Head exam: Present: atraumatic, normocephalic Eye exam: Present: normal appearance, PERRL ENT exam: Present: normal exam Neck exam: Present: normal inspection. Absent: tenderness Respiratory exam: Present: normal lung sounds bilaterally. Absent: respiratory distress, wheezes Cardiovascular Exam: Present: regular rate, normal rhythm GI/Abdominal exam: Present: soft. Absent: distended, tenderness, guarding Extremities exam: Present: normal inspection, normal capillary refill. Absent: pedal edema Neurological exam: Present: alert, oriented X3, CN II-XII intact. Absent: motor sensory deficit Psychiatric exam: Present: normal affect, normal mood Skin exam: Present: warm, dry, intact. Absent: cyanosis, diaphoretic Course Vital Signs 09/18/19 09/18/19 21:26 22:07 Temperature 98.4 F Pulse Rate 66 64 Respiratory 18 18 Rate Blood Pressure 133/77 117/68 O2 Sat by Pulse 100 98 Oximetry EKG Findings - EKG Comments: EKG Findings:: EKG: Normal sinus rhythm, rate of 69, ID interval 128, QRS duration 90, QTC 437, no ST segment elevation. Medical Decision Making - Medical Decision Making 59-year-old male presented for an episode of substernal chest pain. Pain was severe at the onset but had gone to 1 out of 10 by the time he arrived in the emergency department. This pain began just shortly before presenting to the emergency department. Workup reveals EKG showing sinus rhythm with no ST segment elevation. Chest x-ray negative for any acute findings, there is a question of a pulmonary nodule may require a nonemergent computed tomography scan. Patient has a normal CBC, normal CMP, initial troponin is negative. He had taken aspirin and nitroglycerin prior to arrival. He will be kept in observation for serial cardiac enzymes, telemetry, cardiology consultation given his significant risk factors and the atypical nature of his pain. Patient chest pain-free on reevaluation. - Lab Data Result diagrams: 09/18/19 21:05 09/18/19 21:05 Lab Results 09/18/19 09/18/19 09/18/19 Range/Units 21:05 21:05 21:05 WBC 9.0 (3.8-10.6) k/uL RBC 4.56 (4.30-5.90) m/uL Hgb 14.1 (13.0-17.5) gm/dL Hct 42.6 (39.0-53.0) % MCV 93.4 (80.0-100.0) fL MCH 30.9 (25.0-35.0) pg MCHC 33.0 (31.0-37.0) g/dL RDW 13.0 (11.5-15.5) % Plt Count 271 (150-450) k/uL Neutrophils % 66 % Lymphocytes % 23 % Monocytes % 5 % Eosinophils % 4 % Basophils % 1 % Neutrophils # 5.9 (1.3-7.7) k/uL Lymphocytes # 2.0 (1.0-4.8) k/uL Monocytes # 0.4 (0-1.0) k/uL Eosinophils # 0.4 (0-0.7) k/uL Basophils # 0.1 (0-0.2) k/uL PT 9.6 (9.0-12.0) sec INR 0.9 (<1.2) APTT 23.8 (22.0-30.0) sec Sodium 139 (137-145) mmol/L Potassium 4.2 (3.5-5.1) mmol/L Chloride 103 (98-107) mmol/L Carbon Dioxide 23 (22-30) mmol/L Anion Gap 13 mmol/L BUN 20 (9-20) mg/dL Creatinine 1.17 (0.66-1.25) mg/dL Est GFR (CKD-EPI)AfAm 79 (>60 ml/min/1.73 sqM) Est GFR (CKD-EPI)NonAf 68 (>60 ml/min/1.73 sqM) Glucose 87 (74-99) mg/dL Calcium 9.6 (8.4-10.2) mg/dL Magnesium 2.3 (1.6-2.3) mg/dL Total Bilirubin 0.2 (0.2-1.3) mg/dL AST 35 (17-59) U/L ALT 51 H (4-49) U/L Alkaline Phosphatase 71 (38-126) U/L Troponin I (0.000-0.034) ng/mL Total Protein 7.0 (6.3-8.2) g/dL Albumin 4.2 (3.5-5.0) g/dL Serum Alcohol 13 mg/dL 09/18/19 Range/Units 21:05 WBC (3.8-10.6) k/uL RBC (4.30-5.90) m/uL Hgb (13.0-17.5) gm/dL Hct (39.0-53.0) % MCV (80.0-100.0) fL MCH (25.0-35.0) pg MCHC (31.0-37.0) g/dL RDW (11.5-15.5) % Plt Count (150-450) k/uL Neutrophils % % Lymphocytes % % Monocytes % % Eosinophils % % Basophils % % Neutrophils # (1.3-7.7) k/uL Lymphocytes # (1.0-4.8) k/uL Monocytes # (0-1.0) k/uL Eosinophils # (0-0.7) k/uL Basophils # (0-0.2) k/uL PT (9.0-12.0) sec INR (<1.2) APTT (22.0-30.0) sec Sodium (137-145) mmol/L Potassium (3.5-5.1) mmol/L Chloride (98-107) mmol/L Carbon Dioxide (22-30) mmol/L Anion Gap mmol/L BUN (9-20) mg/dL Creatinine (0.66-1.25) mg/dL Est GFR (CKD-EPI)AfAm (>60 ml/min/1.73 sqM) Est GFR (CKD-EPI)NonAf (>60 ml/min/1.73 sqM) Glucose (74-99) mg/dL Calcium (8.4-10.2) mg/dL Magnesium (1.6-2.3) mg/dL Total Bilirubin (0.2-1.3) mg/dL AST (17-59) U/L ALT (4-49) U/L Alkaline Phosphatase (38-126) U/L Troponin I <0.012 (0.000-0.034) ng/mL Total Protein (6.3-8.2) g/dL Albumin (3.5-5.0) g/dL Serum Alcohol mg/dL Disposition Clinical Impression: Chest pain Disposition: ADMITTED IP TO THIS HOSP Condition: Stable Is patient prescribed a controlled substance at d/c from ED?: No Referrals: None,Stated [Primary Care Provider] - 1-2 days Decision to Admit Reason: Admit from EC Decision Date: 09/18/19 Decision Time: 22:58
--- NOTE | 2019-09-18 22:15 | XR ---
EXAMINATION TYPE: XR chest 2V DATE OF EXAM: 09/18/2019 COMPARISON: 04/06/2019 HISTORY: Chest pain TECHNIQUE: Frontal and lateral views of the chest are obtained. FINDINGS: Vague right basilar patchy density could represent overlying structures or pulmonary nodul e. Nonemergent follow-up chest CT is recommended for further evaluation. The cardiac silhouette size is upper limits of normal. The osseous structures are intact. Mild multilevel degenerative change of the spine. IMPRESSION: Questionable subtle right basilar density that may represent summation artifact or small pulmonary nodule. Nonemergent follow-up chest CT is recommended to evaluate for pulmonary nodule.
[2019-09-18 22:23] LABS: Basophils # (A) 0.1 k/uL (0-0.2); Basophils % (A) 1 %; Eosinophils # (A) 0.4 k/uL (0-0.7); Eosinophils % (A) 4 %; HCT 42.6 % (39.0-53.0); HGB 14.1 gm/dL (13.0-17.5); Lymphocytes % (A) 23 %; MCH 30.9 pg (25.0-35.0); MCV 93.4 fL (80.0-100.0); Mean Platelet Volume 7.3; Monocytes # (A) 0.4 k/uL (0-1.0); Monocytes % (A) 5 %; Neutrophils # (A) 5.9 k/uL (1.3-7.7); Neutrophils % (A) 66 %; Platelet Count 271 k/uL (150-450); RBC 4.56 m/uL (4.30-5.90)
[2019-09-18 22:33] LABS: Albumin 4.2 g/dL (3.5-5.0); Calcium 9.6 mg/dL (8.4-10.2); INR 0.9 (<1.2); Magnesium 2.3 mg/dL (1.6-2.3); Partial Thromboplastin Time 23.8 sec (22.0-30.0); Potassium 4.2 mmol/L (3.5-5.1); Prothrombin Time 9.6 sec (9.0-12.0); Total Bilirubin 0.2 mg/dL (0.2-1.3)
[2019-09-18] MEDS ORDERED: ACETAMINOPHEN TAB 325 MG TAB PO PRN (22:55)
[2019-09-18] MEDS ORDERED: MORPHINE SULFATE 4 MG/ML SYRINGE IV PRN (22:55)
[2019-09-18] MEDS ORDERED: NALOXONE 0.4 MG/ML 1 ML VIAL IV PRN (22:55)
[2019-09-18] MEDS ORDERED: NITROGLYCERIN SL TABS 0.4 MG TAB SUBLINGUAL PRN (22:56)
[2019-09-19] MEDS ORDERED: ZOLPIDEM 5 MG TAB PO PRN ×2 (01:05→11:12)
[2019-09-19 01:53] VITALS: RESP 16
[2019-09-19] MEDS ORDERED: HEPARIN SODIUM,PORCINE 5,000 UNIT/ML 1 ML VIAL IV PRN (07:31)
[2019-09-19] MEDS ORDERED: HEPARIN SODIUM,PORCINE 5,000 UNIT/ML 1 ML VIAL IV ONE (07:31)
[2019-09-19] MEDS ORDERED: HEPARIN SOD,PORK IN 0.45% NACL 25,000 UNIT in 0.45% NACL 1 250ML.BAG IV SCH (07:45)
[2019-09-19] MEDS ORDERED: ALPRAZolam 0.5 MG TAB PO PRN (08:08)
[2019-09-19] MEDS ORDERED: ATORVASTATIN 80 MG TAB PO STA (08:08)
[2019-09-19] MEDS ORDERED: NITROGLYCERIN SL TABS 0.4 MG TAB SUBLINGUAL PRN ×2 (08:08→11:12)
[2019-09-19] MEDS ORDERED: ASPIRIN 325 MG TAB PO STA (08:08)
[2019-09-19] MEDS ORDERED: ALPRAZolam 0.25 MG TAB PO PRN (08:08)
[2019-09-19] MEDS ORDERED: SODIUM CHLORIDE 0.9% 1,000 ML in EMPTY BAG 1 BAG IV ONE (08:08)
[2019-09-19] MEDS: METOPROLOL TARTRATE 25 MG TAB PO SCH (08:12)
[2019-09-19] MEDS: ASPIRIN 81 MG PO SCH (08:12)
[2019-09-19] MEDS: FAMOTIDINE 20 MG TAB PO SCH ×2 (08:12→20:37)
--- NOTE | 2019-09-19 08:52 | CONS ---
CONSULTATION Jeffrey Buitrago is a 59-year-old gentleman who sees Dr. Thibodeaux in the outpatient setting and presented with acute inferior MD in September 2018, underwent stenting of circumflex marginal. He did not follow up and has had a rather rough year and he lost his son. There were a lot of family issues and so he did not keep appointment with Dr. Thibodeaux. For the last one week, he is having exertional chest pressures strongly suggestive of angina. With physical activity, he feels pressure and discomfort in the chest that seems to get relieved with rest. He has been fairly compliant with medications. He is smoking about a half pack a day or less. At the time of my evaluation, he is resting comfortably. Denies any chest discomfort. EKG did not reveal any acute changes and 2 sets of troponins are normal. However, the quality of symptoms and previous PCI strongly suggest that this could be angina. I am recommending coronary angiography. I explained to the patient the rationale, risks, benefits, options. He understands and wishes to proceed. PAST MEDICAL HISTORY: 1. Acute inferior MD in September 2018 followed by stenting of circumflex. He did not have any significant disease in other vessels at that time. 2. Hypertension. 3. Hyperlipidemia. 4. History of smoking, although he smokes less than half pack a day. 5. He is status post some right eye surgery where he had some trauma. ALLERGIES: None. MEDICATIONS: Aspirin 81 mg daily, Lipitor 80 mg daily, metoprolol tartrate 12.5 mg daily, Plavix 75 mg daily, Ritalin 10 mg daily, lisinopril 5 mg daily. PHYSICAL EXAMINATION: On examination, blood pressure is 128/70, pulse rate is 60 per minute regular HEENT: Unremarkable. Fundus was not examined by me. Neck is supple. No JVD. I do not hear a carotid bruit. There is no thyromegaly. Heart exam reveals S1, S2 heard normally. No rub, murmur or gallop. Lungs are clear. Abdomen is soft, nontender. Lower extremities reveal normal pulses. No edema. Central nervous system is normal. EKG revealed sinus mechanism with mild 0.[address] depression in leads V3 to V6. IMPRESSION: 1. Unstable angina in a patient with known previous inferior myocardial infarction and PCI of circumflex in 2018. 2. Hypertension. 3. Hyperlipidemia. 4. History of noncompliance with office visits. RECOMMENDATION: I am recommending coronary angiography and PCI based on findings. Risks, benefits, options, rationale explained. We will initiate him on heparin and continue all his other medications. Patient understands all details and wishes to proceed with cardiac cath and possible PCI. REE / FENG: [id number] /
[2019-09-19] MEDS ORDERED: CLOPIDOGREL 75 MG TAB PO SCH (09:00)
[2019-09-19 09:04] LABS: Basophils # (A) 0.1 k/uL (0-0.2); Basophils % (A) 1 %; Eosinophils # (A) 0.3 k/uL (0-0.7); Eosinophils % (A) 4 %; HCT 45.3 % (39.0-53.0); HGB 14.7 gm/dL (13.0-17.5); Lymphocytes # (A) 1.5 k/uL (1.0-4.8); Lymphocytes % (A) 20 %; MCH 30.4 pg (25.0-35.0); MCHC 32.4 g/dL (31.0-37.0); MCV 93.9 fL (80.0-100.0); Mean Platelet Volume 7.3; Monocytes # (A) 0.4 k/uL (0-1.0); Monocytes % (A) 6 %; Neutrophils # (A) 4.8 k/uL (1.3-7.7); Neutrophils % (A) 67 %; Platelet Count 239 k/uL (150-450); RBC 4.83 m/uL (4.30-5.90); RDW 13.1 % (11.5-15.5); WBC 7.3 k/uL (3.8-10.6)
[2019-09-19 09:13] LABS: Partial Thromboplastin Time 81.3 sec (22.0-30.0); Prothrombin Time 10.4 sec (9.0-12.0)
[2019-09-19] MEDS ORDERED: LIDOCAINE 1% INJ 10MG/ML (20 ML MDV) ONE (09:19)
[2019-09-19] MEDS ORDERED: IV FLUID CONTINUATION 800 ML IV ONE (09:49)
[2019-09-19] MEDS ORDERED: LIDOCAINE 1% INJ 10MG/ML (20 ML MDV) SQ ONE (09:49)
[2019-09-19] MEDS ORDERED: MIDAZOLAM 2 MG/2 ML VIAL IV ONE (09:49)
[2019-09-19] MEDS: NITROGLYCERIN 1000MCG/10ML SYRINGE INTRACORON ONE ×3 (09:59→10:43)
[2019-09-19] MEDS ORDERED: BIVALIRUDIN BOLUS 250 MG/50 ML IV ONE (10:10)
[2019-09-19] MEDS ORDERED: BIVALIRUDIN 250 MG in SODIUM CHLORIDE 0.9% 39 ML IV ONE (10:10)
[2019-09-19] MEDS ORDERED: IOPAMIDOL-370 100ML BTL INJ ONE ×3 (10:10→10:55)
[2019-09-19] MEDS ORDERED: HYDROmorphone 1 MG/ML 1 ML SYRINGE ONE (10:16)
[2019-09-19] MEDS: HYDROmorphone 1 MG/ML 1 ML SYRINGE IVP ONE ×2 (10:17→10:57)
[2019-09-19] MEDS ORDERED: TICAGRELOR 90 MG TAB ONE (10:23)
[2019-09-19] MEDS ORDERED: TICAGRELOR 90 MG TAB PO ONE (10:55)
[2019-09-19] MEDS ORDERED: ATROPINE SULFATE 0.1 MG/ML 10ML SYRINGE IV PRN (11:12)
[2019-09-19] MEDS ORDERED: RX INFO: IV CONTRAST WAS GIVEN 1 EACH MISC MISCELLANE PRN (11:12)
[2019-09-19] MEDS ORDERED: MAG HYDROX/AL HYDROX/SIMETH 30 ML CUP PO PRN (11:12)
--- NOTE | 2019-09-19 11:42 | P.HPIM ---
History of Present Illness Patient is a pleasant 59-year-old gentleman with known history of prior coronary artery disease and stenting to circumflex in the past, on aspirin and Plavix at home along with statin and didn't miss any medication but still smokes about 3-4 cigarettes a day came with complaints of chest pressure-like sensation on and off has been going on for about a week. Patient chest pain is pressure-like similar to the pain that he had when he had myocardial patient the chest pain nonradiating moderate to severe moderate severity is relieved with nitroglycerin exertional associated diaphoresis denied any associated shortness of breath. Patient's EKG did not show any acute ST-T wave changes 2 sets of troponins are negative because of the typical nature of the chest pain patient underwent cardiac catheterization and stents to obtuse marginal by branch. A she is feeling better today patient was started on aspirin and Brilinta, it can use to prevent statin and metoprolol. Patient doesn't have any history of congestive heart failure denied any significant shortness of breath at this time Review of Systems REVIEW OF SYSTEMS: CONSTITUTIONAL: No fever, no malaise, no fatigue. HEENT: No recent visual problems or hearing problems. Denied any sore throat. CARDIOVASCULAR: As mentioned in HPI PULMONARY: No shortness of breath, no cough, no hemoptysis. GASTROINTESTINAL: No diarrhea, no nausea, no vomiting, no abdominal pain. NEUROLOGICAL: No headaches, no weakness, no numbness. HEMATOLOGICAL: Denies any bleeding or petechiae. GENITOURINARY: Denies any burning micturition, frequency, or urgency. MUSCULOSKELETAL/RHEUMATOLOGICAL: Denies any joint pain, swelling, or any muscle pain. ENDOCRINE: Denies any polyuria or polydipsia. The rest of the 14-point review of systems is negative. Past Medical History Past Medical History: Myocardial Infarction ([place]) Last Myocardial Infarction Date:: 10/02/2018 History of Any Multi-Drug Resistant Organisms: None Reported Past Surgical History: Heart Catheterization With Stent Additional Past Surgical History / Comment(s): right eye surgery Past Anesthesia/Blood Transfusion Reactions: No Reported Reaction Date of Last Stent Placement:: 09/27/2018 Past Psychological History: ADD/ADHD Smoking Status: Light tobacco smoker Past Alcohol Use History: Daily Additional Past Alcohol Use History / Comment(s): drinks socially Past Drug Use History: None Reported Additional Drug Use History / Comment(s): goes through 2 packs of cigarettes per week - Past Family History Father Family Medical History: Cancer Additional Family Medical History / Comment(s): pancreatic cancer Mother Family Medical History: Cancer Additional Family Medical History / Comment(s): breast cancer, her father had colon cancer Medications and Allergies Home Medications Medication Instructions Recorded Confirmed Type Methylphenidate HCl [Ritalin] 10 mg PO TID 10/02/18 09/18/19 History Aspirin 81 mg PO DAILY #30 chew 10/04/18 09/18/19 Rx Atorvastatin [Lipitor] 80 mg PO HS #30 tab 10/04/18 09/18/19 Rx Nitroglycerin Sl Tabs [Nitrostat] 0.4 mg SUBLINGUAL Q5M PRN #25 tab 10/04/18 09/18/19 Rx Clopidogrel [Plavix] 75 mg PO DAILY 12/01/18 09/18/19 History Lisinopril [Zestril] 5 mg PO HS 12/01/18 09/18/19 History Metoprolol Tartrate [Lopressor] 12.5 mg PO DAILY 12/01/18 09/18/19 History Allergies Allergy/AdvReac Type Severity Reaction Status Date / Time No Known Allergies Allergy Verified 09/18/19 22:36 Physical Exam Vitals: Vital Signs Temp Pulse Pulse Resp BP BP Pulse Ox 09/19/19 08:09 97.8 F 64 16 104/68 96 09/19/19 08:00 97.8 F 64 16 104/68 96 09/19/19 04:00 98.2 F 57 L 16 113/61 97 09/19/19 00:00 98.3 F 61 16 118/64 96 09/18/19 23:16 98.2 F 70 18 126/65 96 09/18/19 22:07 64 18 117/68 98 09/18/19 21:26 98.4 F 66 18 133/77 100 Intake and Output 09/18/19 09/19/19 09/19/19 22:59 06:59 14:59 Intake Total 300 539 Output Total 0 Balance 300 539 Intake: IV 539 Oral 300 Output: Urine 0 Other: # Voids 2 # Bowel Movements 1 Weight 77.111 kg 75.9 kg PHYSICAL EXAMINATION: GENERAL: The patient is alert and oriented x3, not in any acute distress. Well developed, well nourished. HEENT: Pupils are round and equally reacting to light. EOMI. No scleral icterus. No conjunctival pallor. Normocephalic, atraumatic. No pharyngeal erythema. No thyromegaly. CARDIOVASCULAR: S1 and S2 present. No murmurs, rubs, or gallops. PULMONARY: Chest is clear to auscultation, no wheezing or crackles. ABDOMEN: Soft, nontender, nondistended, normoactive bowel sounds. No palpable organomegaly. MUSCULOSKELETAL: No joint swelling or deformity. EXTREMITIES: No cyanosis, clubbing, or pedal edema. NEUROLOGICAL: Gross neurological examination did not reveal any focal deficits. SKIN: No rashes. Results CBC & Chem 7: 09/19/19 08:38 09/18/19 21:05 Labs: Abnormal Lab Results - Last 24 Hours (Table) 09/18/19 09/19/19 Range/Units 21:05 08:38 APTT 81.3 H (22.0-30.0) sec ALT 51 H (4-49) U/L Thrombosis Risk Factor Assmnt - Choose All That Apply Any of the Below Risk Factors Present?: Yes Each Factor Represents 1 point: Age 41-60 years Thrombosis Risk Factor Assessment Total Risk Factor Score: 1 Thrombosis Risk Factor Assessment Level: Low Risk Assessment and Plan Plan: 1 chest pain: Patient has unstable angina patient underwent cardiac catheterization and stenting to obtuse marginal branch patient can you done during antiplatelet therapy, statin, metoprolol. Methylphenidate will be held -Hypertension: Patient will be resumed on home medications monitor his blood pressure his blood pressure is now normal at this time -hyperlipidemia -History of ADD and ADHD because of the acute myocardial holding off on methylphenidate -Nicotine abuse: Counseling was provided and patient wasn't willing to quit smoking altogether
--- NOTE | 2019-09-19 11:58 | CC ---
CARDIAC CATHETERIZATION REPORT DATE OF SERVICE: 09/19/2019 PROCEDURE: 1. Left heart catheterization and coronary angiography. 2. PTCA and stenting of circumflex marginal coronary artery, which was a restenotic lesion with 2 drug-eluting stents. PERFORMED BY: Dr. Jhonatan Alberts. ANESTHESIA: Moderate conscious sedation time was 79 minutes. CLINICAL INFORMATION: Mr. Jeffrey Buitraog is a 59-year-old gentleman with a known history of CAD, hypertension, hyperlipidemia, and smoking. In September of 2018, he presented with acute inferior NC, underwent stenting of a subtotally occluded circumflex marginal. Three drug-eluting stents were placed. At that time, he had a dissection in the area requiring additional stents. He has been smoking, although he has cut down. He presented to the hospital with symptoms suggestive of unstable angina with a negative troponin. He was advised cardiac catheterization after due discussion regarding risks, benefits, and options. This patient sees Dr. Thibodeaux in the outpatient setting. PROCEDURE NOTE: Under local anesthesia and strict aseptic precautions, a 6-Brazilian introducer was placed in the right femoral artery. Using standard [place] catheters I performed coronary angiography and I used the same right [place] catheter to check LV pressures but did not perform an LV gram. Because of significant lesion within the circumflex marginal, I proceeded to perform intervention in the same setting. Following the procedure. I used a Perclose device to secure hemostasis and patient was sent to the room in a stable condition. Results of the cardiac cath as well as the PCI were discussed with the patient during the procedure and also with his by telephone. CARDIAC CATHETERIZATION FINDINGS: The left ventricular end-diastolic pressure was 12 mmHg without any gradient across the aortic valve. CORONARY ANGIOGRAPHY FINDINGS: The right coronary artery dominant vessel. The initial injection had a significant lesion in the RCA and the stenosis was almost 75%-80% in multiple projections. I gave some nitroglycerin. It still did not show any improvement initially. After I performed intervention of the circumflex, I came back and took a picture of the RCA and there was no stenosis in the proximal portion suggesting this was a catheter-related spasm or patient may be prone to vasospasm. RCA therefore does not have any significant lesion in the proximal portion. In the midportion it gives off an acute marginal that has a 40% narrowing both in the acute marginal as well as in the RCA and distally bifurcates into PDA and PLV, both of which supply a sizable amount of myocardium. There is no significant disease in the RCA. The proximal RCA demonstrated significant spasm that improved. LEFT MAIN CORONARY ARTERY: Short patent vessel free of significant disease that bifurcates into LAD and circumflex. The left main itself is free of significant disease. LEFT ANTERIOR DESCENDING CORONARY ARTERY: Good caliber vessel extends along the anterior wall, gives off a good-sized diagonal branch proximally and several septal branches runs all the way to the apex, curves over the apex to supply the inferoapical portion of left ventricle. No significant disease in the LAD system other than 30% to 40$ percent minor irregularities. The diagonal is of good caliber, fair distribution has 30% to 35% narrowing as well as it comes off from the LAD. LEFT POSTERIOR CIRCUMFLEX CORONARY ARTERY: This is a nondominant vessel. The first obtuse marginal was a good caliber vessel, which was the culprit vessel with acute inferior NC in 2018, now within the previously stented area has a 99% area of restenoses within the body of the stented segment. The rest of circumflex has minor irregularities. Left ventriculogram was not performed. FINAL IMPRESSION: This patient has a right dominant system, vasospastic RCA that initially showed stenosis but subsequently resolved with nitroglycerin. The circumflex marginal has a restenotic 99% lesion within the previously placed stent. LAD has 30%-40% narrowing. LV pressures are normal and no gradient across the aortic valve. RECOMMENDATIONS: I advised PCI of circumflex and proceeded to perform in the same setting. PCI PROCEDURE DETAILS: I used a standard left [place] guide catheter to cannulate the left coronary artery and a Whisper wire to cross the lesion. A 2.25 caliber 12 mm NC Trek balloon was used to dilate the entire stented segment. I deployed a 2.75 caliber 12 mm Xience stent at the site of 99% stenosis with excellent result. Proximal to it also there was some haziness. I had taken the wire out by this time. I switched over to a run-through wire and then advanced a 2.75 caliber 8 mm Xience stent and deployed this. I then took a 2.75 caliber NC Trek balloon and dilated the entire segment that was stented. Excellent angiographic result was achieved. Patient had chest pain, but no significant EKG changes on inflation. He received 180 mg of Brilinta. Patient was previously on Plavix. I also gave him Angiomax bolus and infusion as per protocol. The sheath was taken out and Perclose device used to secure hemostasis and he was sent to the room in stable condition. Excellent angiographic result of the circumflex marginal was achieved and results were discussed with the patient and . I took a picture of the RCA after finishing the circumflex intervention and noted that the RCA was widely patent, suggesting that the previously observed proximal lesion was a spasm. MMODL / IJN: [id number] /
[2019-09-19] MEDS: SODIUM CHLORIDE 0.9% 1,000 ML IV SCH (12:05)
[2019-09-19] MEDS: ISOSORBIDE MONONITRATE ER 15 MG TAB PO SCH (12:30)
--- NOTE | 2019-09-19 14:18 | ECHOF ---
Referral Reason:LV function MEASUREMENTS -------- HEIGHT: 170.2 cm WEIGHT: 75.7 kg BP: 104/68 RVIDd: 2.9 cm (< 3.3) IVSd: 1.0 cm (0.6 - 1.1) LVIDd: 3.8 cm (3.9 - 5.3) LVPWd: 1.2 cm (0.6 - 1.1) IVSs: 1.3 cm LVIDs: 2.5 cm LVPWs: 1.5 cm LAESV Index (A-L): 24.88 ml/m Ao Diam: 3.0 cm (2.0 - 3.7) AV Cusp: 2.0 cm (1.5 - 2.6) MV EXCURSION: 14.924 mm (> 18.000) MV EF SLOPE: 75 mm/s (70 - 150) EPSS: 0.2 cm MV E Austin: 0.72 m/s MV DecT: 204 ms MV A [place]: 0.85 m/s MV E/A Ratio: 0.84 RAP: 5.00 mmHg RVSP: 16.43 mmHg FINDINGS -------- Sinus rhythm. This was a technically adequate study. The left ventricular size is normal. There is borderline concentric left ventricular hypertrophy. Overall left ventricular systolic function is normal with, an EF between 55 - 60 %. The diastolic filling pattern is normal for the age of the patient 8.51. The right ventricle is normal in size. Normal LA size by volume 22+/-6 ml/m2. The right atrial size is normal. Interatrial and interventricular septum intact. There is mild aortic valve sclerosis. The mitral valve is normal. No mitral regurgitation. Mild tricuspid regurgitation present. There is no evidence of pulmonary hypertension. The right v entricular systolic pressure, as measured by Doppler, is 16.43mmHg. The pulmonic valve was not well visualized. There is no pulmonic regurgitation present. The aortic root size is normal. IVC Not well visulized. There is no pericardial effusion. CONCLUSIONS -------- 1. There is borderline concentric left ventricular hypertrophy. 2. Overall left ventricular systolic function is normal with, an EF between 55 - 60 %. 3. The diastolic filling pattern is normal for the age of the patient 8.51 4. Normal LA size by volume 22+/-6 ml/m2. 5. There is mild aortic valve sclerosis. 6. No mitral regurgitation. 7. Mild tricuspid regurgitation present. SAS DEVELOPER: Marimar Trevizo RDCS
[2019-09-19] MEDS ORDERED: LISINOPRIL 10 MG TAB PO SCH (21:00)
[2019-09-19] MEDS ORDERED: ATORVASTATIN 80 MG TAB PO SCH (21:00)
[2019-09-19] MEDS ORDERED: amLODIPine 2.5 MG TAB PO SCH (21:00)
[2019-09-20] MEDS: SODIUM CHLORIDE 0.9% 1,000 ML IV SCH (00:40)
[2019-09-20 06:37] LABS: Potassium 4.1 mmol/L (3.5-5.1)
[2019-09-20 08:27] LABS: Basophils % (A) 1 %; Eosinophils # (A) 0.4 k/uL (0-0.7); Eosinophils % (A) 5 %; HCT 41.7 % (39.0-53.0); Lymphocytes # (A) 1.5 k/uL (1.0-4.8); Lymphocytes % (A) 19 %; MCH 31.5 pg (25.0-35.0); MCHC 33.5 g/dL (31.0-37.0); Mean Platelet Volume 7.6; Monocytes # (A) 0.4 k/uL (0-1.0); Monocytes % (A) 6 %; Neutrophils # (A) 5.5 k/uL (1.3-7.7); Neutrophils % (A) 68 %; Platelet Count 252 k/uL (150-450); RBC 4.44 m/uL (4.30-5.90); RDW 13.2 % (11.5-15.5); WBC 8.1 k/uL (3.8-10.6)
[2019-09-20] MEDS ORDERED: TICAGRELOR 90 MG TAB PO SCH (09:00)
[2019-09-20] MEDS: ASPIRIN 81 MG PO SCH (09:06)
[2019-09-20] MEDS: ISOSORBIDE MONONITRATE ER 15 MG TAB PO SCH (09:06)
[2019-09-20] MEDS: METOPROLOL TARTRATE 25 MG TAB PO SCH (09:06)
[2019-09-20] MEDS: FAMOTIDINE 20 MG TAB PO SCH (09:06)
--- NOTE | 2019-09-20 09:08 | PN ---
PROGRESS NOTE Mr. Buitrago is a 59-year-old gentleman underwent stenting of a restenotic circumflex lesion yesterday. He is doing remarkably well today. His right groin is clean and dry. Vitals are stable. No JVD. S1, S2 heard normally. Lungs are clear. Abdomen and lower extremity exam unchanged. I am recommending that he can be discharged on the Brilinta 90 mg b.i.d. aspirin 81 mg daily. Continue his statins as before and beta blockers and lisinopril. I will add Imdur 15 mg at noon time and Norvasc 2.5 at bedtime because of significant vasospasm that was noticed in the RCA. Discussed this with the patient at length. He will be discharged today and will see Dr. Thibodeaux early next week. Discharge instructions regarding activity, diet and compliance with medications were given. REE / FENG: [id number] /
[2019-09-20 09:15] VITALS: BP 104/74; PULSE 59; TEMP 98.2
[2019-09-20 09:30] VITALS: BMI 26.2
--- NOTE | 2019-09-20 11:48 | P.DS ---
Providers Date of admission: 09/19/19 13:28 Attending physician: Genaro Nunn Consults: 09/18/19 22:55 Consult Physician Routine Consulting Provider: Krzysztof Thibodeaux Consult Reason/Comments: CP R/O Do you want consulting provider notified?: Yes 09/19/19 11:12 Consult Physician Routine Consulting Provider: [facility] Consult Reason/Comments: Post Interventional patient Do you want consulting provider notified?: Already Contacted Primary care physician: Stated None Hospital Course: Patient was admitted with unstable angina patient on and cardiac catheterization and stenting of her circumflex. Patient is being discharged today counseling regarding nicotine cessation was provided. PHYSICAL EXAMINATION: GENERAL: The patient is alert and oriented x3, not in any acute distress. Well developed, well nourished. HEENT: Pupils are round and equally reacting to light. EOMI. No scleral icterus. No conjunctival pallor. Normocephalic, atraumatic. No pharyngeal erythema. No thyromegaly. CARDIOVASCULAR: S1 and S2 present. No murmurs, rubs, or gallops. PULMONARY: Chest is clear to auscultation, no wheezing or crackles. ABDOMEN: Soft, nontender, nondistended, normoactive bowel sounds. No palpable organomegaly. MUSCULOSKELETAL: No joint swelling or deformity. EXTREMITIES: No cyanosis, clubbing, or pedal edema. NEUROLOGICAL: Gross neurological examination did not reveal any focal deficits. SKIN: No rashes. Assessment and Plan Plan: 1 chest pain: Patient has unstable angina patient underwent cardiac catheterization and stenting to obtuse marginal branch -Hypertension: -hyperlipidemia -History of ADD and ADHD -Nicotine abuse: Counseling was provided and patient is willing to quit smoking altogether Assessment: Pt to follow up with primary care provide in 1 to 2 days, who is unknown at time of discharge. Patient not to return to work until he follows up with the [facility] stud[facility]. Patient Condition at Discharge: Stable Plan - Discharge Summary Discharge Rx Participant: No New Discharge Prescriptions: New Ticagrelor [Brilinta] 90 mg PO BID #60 tab Isosorbide Mononitrate ER [Imdur] 15 mg PO DAILY #30 dose Nitroglycerin Sl Tabs [Nitrostat] 0.4 mg SUBLINGUAL Q5M PRN #25 tab PRN Reason: Chest Pain Continue Methylphenidate HCl [Ritalin] 10 mg PO TID Aspirin 81 mg PO DAILY #30 chew Atorvastatin [Lipitor] 80 mg PO HS #30 tab Nitroglycerin Sl Tabs [Nitrostat] 0.4 mg SUBLINGUAL Q5M PRN #25 tab PRN Reason: Chest Pain Metoprolol Tartrate [Lopressor] 12.5 mg PO DAILY Lisinopril [Zestril] 5 mg PO HS Discontinued Clopidogrel [Plavix] 75 mg PO DAILY Discharge Medication List Methylphenidate HCl [Ritalin] 10 mg PO TID 10/02/18 [History] Aspirin 81 mg PO DAILY #30 chew 10/04/18 [Rx] Atorvastatin [Lipitor] 80 mg PO HS #30 tab 10/04/18 [Rx] Nitroglycerin Sl Tabs [Nitrostat] 0.4 mg SUBLINGUAL Q5M PRN #25 tab 10/04/18 [Rx] Lisinopril [Zestril] 5 mg PO HS 12/01/18 [History] Metoprolol Tartrate [Lopressor] 12.5 mg PO DAILY 12/01/18 [History] Isosorbide Mononitrate ER [Imdur] 15 mg PO DAILY #30 dose 09/19/19 [Rx] Nitroglycerin Sl Tabs [Nitrostat] 0.4 mg SUBLINGUAL Q5M PRN #25 tab 09/19/19 [Rx] Ticagrelor [Brilinta] 90 mg PO BID #60 tab 09/19/19 [Rx] Follow up Appointment(s)/Referral(s): Rehab [facility],Cardiac [NON-STAFF] - (After discharge, you will follow-up with your [facility] stud[facility]. Once you have obtained a prescription for cardiac rehab, please call [phone] to set up an evaluation.) Krzysztof Thibodeaux MD [STAFF PHYSICIAN] - 09/26/19 8:30 am Patient Instructions/Handouts: *Surgery [facility] - After Heart Catheterization - Advertising Sales Manager Instructions, How to Stop Smoking (DC), Heart Healthy Diet (DC) Activity/Diet/Wound Care/Special Instructions: $5 commercial copay card for brilinta applied in pharmacy, ready to deliver. D/C RX delivery. Discharge Disposition: HOME SELF-CARE
== END 2019-09-20 11:57 | disposition home or self-care (01) | DRG 247 ==
LOC: EC 21:13 → 3SCARD 22:55 → OBSVTOIN 09-19 13:28
PROVIDERS: ADMIT Internal Medicine; ATTEND Internal Medicine
PROC: 4A023N7 Measurement of Cardiac Sampling and Pressure, Left Heart, Percutaneous Approach (ICD-10-PCS; principal; 2019-09-19 09:55)
PROC: B2111ZZ Fluoroscopy of Multiple Coronary Arteries using Low Osmolar Contrast (ICD-10-PCS; principal; 2019-09-19 09:55)
PROC: 027034Z Dilation of Coronary Artery, One Artery with Drug-eluting Intraluminal Device, Percutaneous Approach (ICD-10-PCS; principal; 2019-09-19 09:55)
DX: I25.110 Atherosclerotic heart disease of native coronary artery with unstable angina pectoris (principal); E78.5 Hyperlipidemia, unspecified; F17.210 Nicotine dependence, cigarettes, uncomplicated; I10 Essential (primary) hypertension; F90.9 Attention-deficit hyperactivity disorder, unspecified type; Z79.02 Long term (current) use of antithrombotics/antiplatelets; Z79.82 Long term (current) use of aspirin; Z79.899 Other long term (current) drug therapy; I25.2 Old myocardial infarction; Z95.5 Presence of coronary angioplasty implant and graft; Z80.0 Family history of malignant neoplasm of digestive organs; Z80.3 Family history of malignant neoplasm of breast; Z91.19 Patient's noncompliance with other medical treatment and regimen
CPT/HCPCS: 36415; 71046; 80048; 80053; 80320; 83735; 84484; 85025; 85610; 85730; 93005; 93306; 93458; 99285

== ENCOUNTER 2019-12-16 22:43 | Emergency (ER) | payer BC, OTHER ==
[2019-12-16 22:49] VITALS: BP 163/71; PULSE 64; RESP 18; TEMP 97.8
[2019-12-16] MEDS ORDERED: BUPIVACAINE (PF) 0.5% 30 ML VIAL SQ STA (23:06)
[2019-12-16] MEDS ORDERED: KETOROLAC 30 MG/ML 1 ML VIAL IM STA (23:07)
[2019-12-16] MEDS ORDERED: PENICILLIN VK 500MG STARTER 4 TAB BTL PO STA (23:07)
--- NOTE | 2019-12-16 23:40 | ED ---
ENT HPI - General Chief complaint: Dental/Oral Stated complaint: Tooth pain Time Seen by Provider: 12/16/19 22:52 Source: patient Mode of arrival: ambulatory Limitations: no limitations - History of Present Illness Initial comments: 59-year-old male patient presents to the emergency department today for evaluation of right upper dental pain. Patient states the pain started approximately 2 hours ago and has been severe. He is rating his pain at a 20 out of 10 on the pain scale. Patient states that a few months ago he did break the tooth but was unable to follow-up with the dentist due to the ID- pandemic. He states that the pain is radiating up into his eye. He denies fever or chills. Denies any trismus or difficulty swallowing. Denies any nausea or vomiting. He states that he did take Tylenol for the pain but it did not seem to help. - Related Data Home Medications Medication Instructions Recorded Confirmed Methylphenidate HCl [Ritalin] 10 mg PO TID 10/02/18 09/18/19 Lisinopril [Zestril] 5 mg PO HS 12/01/18 09/18/19 Metoprolol Tartrate [Lopressor] 12.5 mg PO DAILY 12/01/18 09/18/19 Previous Rx's Medication Instructions Recorded Aspirin 81 mg PO DAILY #30 chew 10/04/18 Atorvastatin [Lipitor] 80 mg PO HS #30 tab 10/04/18 Nitroglycerin Sl Tabs [Nitrostat] 0.4 mg SUBLINGUAL Q5M PRN #25 tab 10/04/18 Isosorbide Mononitrate ER [Imdur] 15 mg PO DAILY #30 dose 09/19/19 Nitroglycerin Sl Tabs [Nitrostat] 0.4 mg SUBLINGUAL Q5M PRN #25 tab 09/19/19 Ticagrelor [Brilinta] 90 mg PO BID #60 tab 09/19/19 Ibuprofen [Motrin] 600 mg PO Q8HR PRN #30 tab 12/16/19 Penicillin V Potassium [Pen Vee K] 500 mg PO Q6H #40 tablet 12/16/19 Allergies Allergy/AdvReac Type Severity Reaction Status Date / Time No Known Allergies Allergy Verified 12/16/19 22:49 Review of Systems ROS Statement: Those systems with pertinent positive or pertinent negative responses have been documented in the HPI. ROS Other: All systems not noted in ROS Statement are negative. Past Medical History Past Medical History: Myocardial Infarction ([place]) Last Myocardial Infarction Date:: 10/02/2018 History of Any Multi-Drug Resistant Organisms: None Reported Past Surgical History: Heart Catheterization With Stent Additional Past Surgical History / Comment(s): right eye surgery Past Anesthesia/Blood Transfusion Reactions: No Reported Reaction Date of Last Stent Placement:: 09/27/2018 Past Psychological History: ADD/ADHD Smoking Status: Former smoker Past Alcohol Use History: Rare Past Drug Use History: None Reported - Past Family History Father Family Medical History: Cancer Additional Family Medical History / Comment(s): pancreatic cancer Mother Family Medical History: Cancer Additional Family Medical History / Comment(s): breast cancer, her father had colon cancer General Exam Limitations: no limitations General appearance: alert, in no apparent distress, other (This is a well- developed, well-nourished adult male patient in no acute distress. Vital signs upon presentation are temperature 97.8F, pulse 64, respirations 18, blood pressure 163/71, pulse ox 100% on room air.) Eye exam: Present: normal appearance, PERRL, EOMI. Absent: scleral icterus, conjunctival injection, periorbital swelling ENT exam: Present: mucous membranes moist, other (Patient has fractured tooth #1. There is pulp exposure. No surrounding gingival erythema or hyperplasia. No evidence for drainable abscess. ) Respiratory exam: Present: normal lung sounds bilaterally. Absent: respiratory distress, wheezes, rales, rhonchi, stridor Cardiovascular Exam: Present: regular rate, normal rhythm, normal heart sounds. Absent: systolic murmur, diastolic murmur, rubs, gallop, clicks Neurological exam: Present: alert, oriented X3, CN II-XII intact Psychiatric exam: Present: normal affect, normal mood Skin exam: Present: warm, dry, intact, normal color. Absent: rash Course Vital Signs 12/16/19 22:46 Temperature 97.8 F Pulse Rate 64 Respiratory 18 Rate Blood Pressure 163/71 O2 Sat by Pulse 100 Oximetry Procedures - Nerve Block Consent Obtained: verbal consent Local Anesthetic Used: Marcaine 0.5% Amount of anesthesia used: 3 Side: left Intraoral Nerve Block: superior alveolar Procedure Successful: Yes Complications: none Patient Tolerated Procedure: well Medical Decision Making - Medical Decision Making 59-year-old male patient presented to the emergency department today for evaluation of right upper dental pain started approximately 2 hours prior to arrival. Physical examination did reveal fractured tooth #1. There is no surrounding gingival erythema or hyperplasia. Patient was in distress related to the pain so I did perform an oral nerve block, superior alveolar. This was successful and patient is much more comfortable at time of discharge. We did start pen VK for possibility of early infection. He'll be discharged follow up with the dentist for further evaluation as soon as possible. He is instructed to follow-up with his primary care physician for recheck in 1-2 days. Return parameters were discussed in detail. He verbalizes understanding and agrees with this plan. Disposition Clinical Impression: Fractured tooth, Toothache Disposition: HOME SELF-CARE Condition: Good Instructions (If sedation given, give patient instructions): Dental Abscess (ED), Toothache (ED) Additional Instructions: Take antibiotics until complete. Follow up with dentistry as soon as possible. Return to the emergency department immediately for any new, worsening, or concerning symptoms. Prescriptions: Ibuprofen [Motrin] 600 mg PO Q8HR PRN #30 tab PRN Reason: Pain Penicillin V Potassium [Pen Vee K] 500 mg PO Q6H #40 tablet Is patient prescribed a controlled substance at d/c from ED?: No Referrals: None,Stated [Primary Care Provider] - 1-2 days Time of Disposition: 23:40
== END 2019-12-16 23:51 | disposition home or self-care (01) ==
LOC: EC 22:43
DX: S02.5XXA Fracture of tooth (traumatic), initial encounter for closed fracture (principal); K08.89 Other specified disorders of teeth and supporting structures; F90.9 Attention-deficit hyperactivity disorder, unspecified type; I25.2 Old myocardial infarction; Z79.899 Other long term (current) drug therapy; Z95.5 Presence of coronary angioplasty implant and graft; Z87.891 Personal history of nicotine dependence; X58.XXXA Exposure to other specified factors, initial encounter
CPT/HCPCS: 99282; 64400; 96372; J1885

== ENCOUNTER 2020-03-23 12:31 | Observation (INO) | payer BC ==
[2020-03-23] MEDS ORDERED: ASPIRIN 81 MG PO STA (13:02)
[2020-03-23] MEDS ORDERED: NITROGLYCERIN OINT 1 INCH/GM PACKET TOPICAL STA (13:02)
--- NOTE | 2020-03-23 13:04 | ED ---
General Adult HPI - General Chief complaint: Chest Pain Stated complaint: Chest Pain Time Seen by Provider: 03/23/20 12:57 Source: patient, RN notes reviewed Mode of arrival: ambulatory Limitations: no limitations - History of Present Illness Initial comments: Patient is a pleasant 59-year-old male presenting to emergency Department with complaints of chest discomfort. Onset of symptoms was 3-4 days ago. Patient states discomfort feels like pressure, rated 4/10. Patient does have associated exertional dyspnea. Patient does feel a bit nauseated. No diaphoresis. Patient does have history of previous heart attack however symptoms at that time were more similar to indigestion. No leg pain or leg swelling. Discomfort does sometimes radiate towards left arm or neck. [place] did not stay there because they did not have a griddle attendant. - Related Data Home Medications Medication Instructions Recorded Confirmed Methylphenidate HCl [Ritalin] 10 mg PO TID 10/02/18 09/18/19 Metoprolol Tartrate [Lopressor] 12.5 mg PO DAILY 12/01/18 09/18/19 lisinopriL [Zestril] 5 mg PO HS 12/01/18 09/18/19 Previous Rx's Medication Instructions Recorded Aspirin 81 mg PO DAILY #30 chew 10/04/18 Atorvastatin [Lipitor] 80 mg PO HS #30 tab 10/04/18 Nitroglycerin Sl Tabs [Nitrostat] 0.4 mg SUBLINGUAL Q5M PRN #25 tab 10/04/18 Isosorbide Mononitrate ER [Imdur] 15 mg PO DAILY #30 dose 09/19/19 Nitroglycerin Sl Tabs [Nitrostat] 0.4 mg SUBLINGUAL Q5M PRN #25 tab 09/19/19 Ticagrelor [Brilinta] 90 mg PO BID #60 tab 09/19/19 Ibuprofen [Motrin] 600 mg PO Q8HR PRN #30 tab 12/16/19 Penicillin V Potassium [Pen Vee K] 500 mg PO Q6H #40 tablet 12/16/19 Allergies Allergy/AdvReac Type Severity Reaction Status Date / Time No Known Allergies Allergy Verified 03/23/20 12:43 Review of Systems ROS Statement: Those systems with pertinent positive or pertinent negative responses have been documented in the HPI. ROS Other: All systems not noted in ROS Statement are negative. Constitutional: Denies: fever Eyes: Denies: eye pain ENT: Denies: ear pain Respiratory: Reports: as per HPI. Denies: cough Cardiovascular: Reports: as per HPI, chest pain Endocrine: Denies: fatigue Gastrointestinal: Denies: abdominal pain Genitourinary: Denies: urgency Musculoskeletal: Denies: back pain Skin: Denies: rash Neurological: Denies: weakness Past Medical History Past Medical History: Myocardial Infarction ([place]) Additional Past Medical History / Comment(s): STEMI 2019 Last Myocardial Infarction Date:: 10/02/2018 History of Any Multi-Drug Resistant Organisms: None Reported Past Surgical History: Heart Catheterization With Stent Additional Past Surgical History / Comment(s): right eye surgery Past Anesthesia/Blood Transfusion Reactions: No Reported Reaction Date of Last Stent Placement:: 09/27/2018 Past Psychological History: ADD/ADHD Smoking Status: Former smoker Past Alcohol Use History: Rare Past Drug Use History: None Reported - Past Family History Father Family Medical History: Cancer Additional Family Medical History / Comment(s): pancreatic cancer Mother Family Medical History: Cancer Additional Family Medical History / Comment(s): breast cancer, her father had colon cancer Course Vital Signs 03/23/20 12:40 Temperature 98.3 F Pulse Rate 62 Respiratory 16 Rate Blood Pressure 105/66 O2 Sat by Pulse 98 Oximetry EKG Findings - EKG Comments: EKG Findings:: Sinus bradycardia 56. VA 134. QRS 94. QT 410. QTc 395. Normal axis. Normal QRS. No acute ST change. Medical Decision Making - Medical Decision Making Patient reevaluated and slightly improved. Patient updated on results and plan. Dr. Hodge has been paged for admission covering for hospital call. - Lab Data Result diagrams: 03/23/20 13:14 03/23/20 13:14 Lab Results 03/23/20 03/23/20 03/23/20 Range/Units 13:14 13:14 13:14 WBC 7.7 (3.8-10.6) k/uL RBC 4.52 (4.30-5.90) m/uL Hgb 13.5 (13.0-17.5) gm/dL Hct 42.5 (39.0-53.0) % MCV 93.9 (80.0-100.0) fL MCH 29.8 (25.0-35.0) pg MCHC 31.8 (31.0-37.0) g/dL RDW 13.9 (11.5-15.5) % Plt Count 225 (150-450) k/uL Neutrophils % 74 % Lymphocytes % 14 % Monocytes % 6 % Eosinophils % 5 % Basophils % 1 % Neutrophils # 5.6 (1.3-7.7) k/uL Lymphocytes # 1.1 (1.0-4.8) k/uL Monocytes # 0.4 (0-1.0) k/uL Eosinophils # 0.4 (0-0.7) k/uL Basophils # 0.1 (0-0.2) k/uL PT 9.7 (9.0-12.0) sec INR 0.9 (<1.2) APTT 22.9 (22.0-30.0) sec D-Dimer 0.22 (<0.60) mg/L FEU Sodium 138 (137-145) mmol/L Potassium 4.2 (3.5-5.1) mmol/L Chloride 106 (98-107) mmol/L Carbon Dioxide 27 (22-30) mmol/L Anion Gap 5 mmol/L BUN 11 (9-20) mg/dL Creatinine 1.47 H (0.66-1.25) mg/dL Est GFR (CKD-EPI)AfAm 60 (>60 ml/min/1.73 sqM) Est GFR (CKD-EPI)NonAf 52 (>60 ml/min/1.73 sqM) Glucose 101 H (74-99) mg/dL Calcium 9.8 (8.4-10.2) mg/dL Magnesium 2.0 (1.6-2.3) mg/dL Total Bilirubin 0.4 (0.2-1.3) mg/dL AST 22 (17-59) U/L ALT 20 (4-49) U/L Alkaline Phosphatase 53 (38-126) U/L Troponin I (0.000-0.034) ng/mL NT-Pro-B Natriuret Pep pg/mL Total Protein 6.1 L (6.3-8.2) g/dL Albumin 3.6 (3.5-5.0) g/dL 03/23/20 03/23/20 Range/Units 13:14 13:14 WBC (3.8-10.6) k/uL RBC (4.30-5.90) m/uL Hgb (13.0-17.5) gm/dL Hct (39.0-53.0) % MCV (80.0-100.0) fL MCH (25.0-35.0) pg MCHC (31.0-37.0) g/dL RDW (11.5-15.5) % Plt Count (150-450) k/uL Neutrophils % % Lymphocytes % % Monocytes % % Eosinophils % % Basophils % % Neutrophils # (1.3-7.7) k/uL Lymphocytes # (1.0-4.8) k/uL Monocytes # (0-1.0) k/uL Eosinophils # (0-0.7) k/uL Basophils # (0-0.2) k/uL PT (9.0-12.0) sec INR (<1.2) APTT (22.0-30.0) sec D-Dimer (<0.60) mg/L FEU Sodium (137-145) mmol/L Potassium (3.5-5.1) mmol/L Chloride (98-107) mmol/L Carbon Dioxide (22-30) mmol/L Anion Gap mmol/L BUN (9-20) mg/dL Creatinine (0.66-1.25) mg/dL Est GFR (CKD-EPI)AfAm (>60 ml/min/1.73 sqM) Est GFR (CKD-EPI)NonAf (>60 ml/min/1.73 sqM) Glucose (74-99) mg/dL Calcium (8.4-10.2) mg/dL Magnesium (1.6-2.3) mg/dL Total Bilirubin (0.2-1.3) mg/dL AST (17-59) U/L ALT (4-49) U/L Alkaline Phosphatase (38-126) U/L Troponin I <0.012 (0.000-0.034) ng/mL NT-Pro-B Natriuret Pep 64 pg/mL Total Protein (6.3-8.2) g/dL Albumin (3.5-5.0) g/dL - Radiology Data Radiology results: image reviewed (X-ray shows no acute process) Disposition Clinical Impression: Chest pain Disposition: ADMITTED IP TO THIS HOSP Is patient prescribed a controlled substance at d/c from ED?: No Referrals: None,Stated [Primary Care Provider] - 1-2 days Decision Time: 14:17
[2020-03-23 13:21] LABS: Basophils # (A) 0.1 k/uL (0-0.2); Basophils % (A) 1 %; Eosinophils # (A) 0.4 k/uL (0-0.7); Eosinophils % (A) 5 %; HCT 42.5 % (39.0-53.0); HGB 13.5 gm/dL (13.0-17.5); Lymphocytes # (A) 1.1 k/uL (1.0-4.8); Lymphocytes % (A) 14 %; MCH 29.8 pg (25.0-35.0); MCHC 31.8 g/dL (31.0-37.0); MCV 93.9 fL (80.0-100.0); Mean Platelet Volume 6.7; Monocytes # (A) 0.4 k/uL (0-1.0); Monocytes % (A) 6 %; Neutrophils # (A) 5.6 k/uL (1.3-7.7); Neutrophils % (A) 74 %; Platelet Count 225 k/uL (150-450); RBC 4.52 m/uL (4.30-5.90); RDW 13.9 % (11.5-15.5); WBC 7.7 k/uL (3.8-10.6)
[2020-03-23 13:34] LABS: Albumin 3.6 g/dL (3.5-5.0); Calcium 9.8 mg/dL (8.4-10.2); Potassium 4.2 mmol/L (3.5-5.1); Total Bilirubin 0.4 mg/dL (0.2-1.3); Total Protein 6.1 g/dL (6.3-8.2)
[2020-03-23 13:40] LABS: D-Dimer 0.22 mg/L FEU (<0.60); INR 0.9 (<1.2); Partial Thromboplastin Time 22.9 sec (22.0-30.0); Prothrombin Time 9.7 sec (9.0-12.0)
--- NOTE | 2020-03-23 13:46 | XR ---
EXAMINATION TYPE: XR chest 2V DATE OF EXAM: 03/23/2020 CLINICAL HISTORY: Chest pain TECHNIQUE: Frontal and lateral views of the chest are obtained. COMPARISON: Chest radiograph 09/18/2019 FINDINGS: The cardiomediastinal silhouette is within normal limits for size. Pulmonary vasculature i s normal. There is no focal air space opacity, pleural effusion, or pneumothorax seen. The osseous st ructures are intact. IMPRESSION: No acute cardiopulmonary process.
[2020-03-23] MEDS ORDERED: NITROGLYCERIN SL TABS 0.4 MG TAB SUBLINGUAL PRN (14:17)
[2020-03-23] MEDS ORDERED: HYDROmorphone 0.5 MG/0.5 ML SYRINGE IVP PRN (18:14)
[2020-03-23] MEDS: NITROGLYCERIN OINT 1 INCH/GM PACKET TOPICAL SCH (18:35)
[2020-03-23] MEDS ORDERED: ALPRAZolam 0.25 MG TAB PO PRN (20:47)
[2020-03-23] MEDS ORDERED: HYDROcodone/APAP 5-325MG 1 EACH TAB PO PRN (20:47)
[2020-03-23] MEDS: TICAGRELOR 90 MG TAB PO SCH (21:29)
[2020-03-23] MEDS: SODIUM CHLORIDE 0.9% 1,000 ML IV SCH (21:30)
[2020-03-23] MEDS: ATORVASTATIN 80 MG TAB PO SCH (21:30)
[2020-03-23] MEDS: traZODone HCL 50 MG TAB PO SCH (21:30)
--- NOTE | 2020-03-23 22:24 | HP ---
HISTORY AND PHYSICAL CHIEF COMPLAINT: Chest pain. HISTORY OF PRESENT ILLNESS: This 59-year-old gentleman with a past medical history of multiple medical problems, including myocardial infarction, STEMI in 2019, had cardiac catheterization and stenting of the obtuse marginal branch. The patient is complaining of chest discomfort, mainly felt in the anterior part and left side of the chest, on and off for the past 3 or 4 days. The pain was a pressure type of pain with moderate intensity 4 to 5 out of 10. The patient also has associated exertional shortness of breath. There was no sweating. The patient came to [facility] and was admitted for further evaluation and treatment. The lab evaluation showed normal CBC, normal D-dimer, and creatinine was found to be 1.47. Baseline creatinine was 1.3. EKG showed sinus bradycardia and nonspecific changes. Chest x-ray, which was reviewed personally by me, showed no acute cardiopulmonary problems. NT proBNP is only 64. There is no history of any fever, rigor or chills. No history of headache, loss of consciousness, seizures at this time. The patient was also noted to have significant hypotension and bradycardia at home. PAST MEDICAL HISTORY: History of CAD, stent, STEMI, history of right eye surgery, ADD, ADHD, nicotine dependence. MEDICATIONS: Medications prior to admission include Brilinta, aspirin. Desyrel, Nitrostat, Lopressor, Zestril, Ritalin, Imdur, Lipitor. ALLERGIES: NONE. FAMILY HISTORY: History of pancreatic cancer in the family. SOCIAL HISTORY: Previous history of smoking. No current smoking or alcohol intake. REVIEW OF SYSTEMS: ENT: No diminished hearing. No diminished vision. CARDIOVASCULAR SYSTEM: As mentioned earlier. RESPIRATORY SYSTEM: As mentioned earlier. GI: No nausea, vomiting. : No dysuria or retention. NERVOUS SYSTEM: No numbness, weakness. ALLERGY/IMMUNOLOGY: No asthma, hayfever. MUSCULOSKELETAL: As mentioned earlier. HEMATOLOGY/ONCOLOGY: No history of anemia. ENDOCRINE: No history of diabetes, hypothyroidism. CONSTITUTIONAL: As mentioned earlier. DERMATOLOGY: Negative. RHEUMATOLOGY: Negative. PSYCHIATRY: As mentioned earlier. PHYSICAL EXAMINATION: Patient alert and oriented x3. Pulse 70, blood pressure 124/84. Minimal orthostatic changes present. Respirations 19, temperature 98.1, pulse ox 98% on room air. HEENT: Conjunctivae normal. Oral mucosa moist. NECK: No jugular venous distention. No carotid bruit. No lymph node enlargement. CARDIOVASCULAR SYSTEM: S1, S2 muffled. No S3. No S4. RESPIRATORY SYSTEM: Breath sounds diminished at the bases. No rhonchi. No crackles. ABDOMEN: Soft, non-tender. No mass palpable. LEGS: No edema. No swelling. NERVOUS SYSTEM: Higher functions as mentioned earlier. Moves all 4 limbs. No focal motor or sensory deficit. LYMPHATICS: No lymph node palpable in neck, axillae or groin. SKIN: No ulcer, rash, bleeding. JOINTS: No active deforming arthropathy. LABS: Labs at this time show CBC within normal limits. Creatinine is 1.47. Troponins are noted. ASSESSMENT: 1. Chest pain, possible unstable angina. 2. Increased creatinine with possibly acute renal failure with acute tubular necrosis and prerenal factors. 3. Orthostatic hypotension and bradycardia, possibly medication-induced. 4. History of coronary artery disease with stenting of the obtuse marginal branch. 5. Attention deficit disorder, attention deficit hyperactivity disorder. 6. Remote history of nicotine dependence. 7. Hypertension. RECOMMENDATIONS AND DISCUSSION: In this 59-year-old gentleman who presented with multiple complex medical issues, we will monitor the patient closely, continue the current medications. Continue symptomatic treatment. Resume the home medications. Rule out myocardial infarction. Hold the blood pressure medications. IV fluids. Otherwise, orthostatic vitals. Cardiology consultation. Further evaluation depending upon the further testing. Prognosis is guarded because of multiple complex medical issues. Further recommendations to follow. MMODL / MOYN: [id number] /
[2020-03-24] MEDS: NITROGLYCERIN OINT 1 INCH/GM PACKET TOPICAL SCH ×2 (00:26→05:39)
[2020-03-24 05:26] LABS: Basophils # (A) 0.1 k/uL (0-0.2); Basophils % (A) 1 %; Eosinophils # (A) 0.4 k/uL (0-0.7); Eosinophils % (A) 7 %; HCT 39.5 % (39.0-53.0); HGB 13.2 gm/dL (13.0-17.5); Lymphocytes # (A) 1.4 k/uL (1.0-4.8); Lymphocytes % (A) 26 %; MCH 32.2 pg (25.0-35.0); MCHC 33.4 g/dL (31.0-37.0); MCV 96.4 fL (80.0-100.0); Mean Platelet Volume 6.8; Monocytes # (A) 0.4 k/uL (0-1.0); Monocytes % (A) 7 %; Neutrophils # (A) 3.1 k/uL (1.3-7.7); Neutrophils % (A) 58 %; Platelet Count 198 k/uL (150-450); RBC 4.09 m/uL (4.30-5.90); RDW 13.4 % (11.5-15.5); WBC 5.3 k/uL (3.8-10.6)
[2020-03-24 05:37] LABS: Calcium 9.5 mg/dL (8.4-10.2); Potassium 3.9 mmol/L (3.5-5.1)
[2020-03-24] MEDS: SODIUM CHLORIDE 0.9% 1,000 ML IV SCH ×2 (05:45→13:37)
[2020-03-24] MEDS ORDERED: SODIUM CHLORIDE 0.9% 1,000 ML in EMPTY BAG 1 BAG IV ONE (08:47)
[2020-03-24] MEDS ORDERED: ASPIRIN 325 MG TAB PO STA (08:47)
[2020-03-24] MEDS ORDERED: NITROGLYCERIN SL TABS 0.4 MG TAB SUBLINGUAL PRN (08:47)
[2020-03-24] MEDS ORDERED: ALPRAZolam 0.25 MG TAB PO PRN (08:47)
[2020-03-24] MEDS ORDERED: ATORVASTATIN 80 MG TAB PO STA (08:47)
[2020-03-24] MEDS ORDERED: ALPRAZolam 0.5 MG TAB PO PRN (08:47)
[2020-03-24] MEDS ORDERED: ASPIRIN 325 MG TAB PO SCH (09:00)
[2020-03-24] MEDS: ASPIRIN 81 MG PO SCH (09:17)
[2020-03-24 09:19] LABS: Glucose,Whole Blood 105 mg/dL (75-99)
[2020-03-24] MEDS: TICAGRELOR 90 MG TAB PO SCH ×2 (09:24→20:38)
[2020-03-24] MEDS: METHYLPHENIDATE HCL 10 MG TAB PO SCH ×3 (09:25→17:58)
[2020-03-24] MEDS ORDERED: IV FLUID CONTINUATION 1,000 ML IV ONE (11:09)
--- NOTE | 2020-03-24 11:30 | P.CRDCN ---
History of Present Illness Consult date: 03/24/20 Consult reason: chest pain Chief complaint: Chest pain History of present illness: This is a pleasant 59-year-old gentleman who follows with Dr. Lee in the office. He has a known history of myocardial infarction with stenting of the OM in September 2018, subsequent to that patient underwent angioplasty and stent ing of the OM in September of this year, history of hyperlipidemia, prior nicotine dependence he quit smoking 4 months ago. He presents to the hospital with symptoms of chest pressure and associated shortness of breath, patient is also been experiencing some numbness and tingling in his left hand and arm. Symptoms started approximately 5 days ago [place] They have been occurring off and on since then, mostly exertional in nature. Chest x-ray on presentation here did not reveal any acute process. EKG shows normal sinus rhythm, sinus bradycardia with mild lateral ST depression. Echocardiogram with Doppler study performed in September 2019 showed an ejection fraction of 55-60%. Blood pressure 136/80 with a heart rate in the 60s, respirations 18 white blood cell count 5.3, hemoglobin 13.2, platelet count 198. Sodium 139, potassium 3.9, BUN 13, creatinine 1.3 troponins were negative 3. At the time of my examination this morning, chest pain is resolved. Past Medical History Past Medical History: Myocardial Infarction (CT) Additional Past Medical History / Comment(s): STEMI 2019 Last Myocardial Infarction Date:: 10/02/2018 History of Any Multi-Drug Resistant Organisms: None Reported Past Surgical History: Heart Catheterization With Stent Additional Past Surgical History / Comment(s): right eye surgery Past Anesthesia/Blood Transfusion Reactions: No Reported Reaction Date of Last Stent Placement:: 09/27/2018 Past Psychological History: ADD/ADHD Smoking Status: Former smoker Past Alcohol Use History: Rare Additional Past Alcohol Use History / Comment(s): drinks socially Past Drug Use History: None Reported Additional Drug Use History / Comment(s): goes through 2 packs of cigarettes per week - Past Family History Father Family Medical History: Cancer Additional Family Medical History / Comment(s): pancreatic cancer Mother Family Medical History: Cancer Additional Family Medical History / Comment(s): breast cancer, her father had colon cancer Medications and Allergies Home Medications Medication Instructions Recorded Confirmed Type Methylphenidate HCl [Ritalin] 10 mg PO TID 10/02/18 03/23/20 History Aspirin 81 mg PO DAILY #30 chew 10/04/18 03/23/20 Rx Atorvastatin [Lipitor] 80 mg PO HS #30 tab 10/04/18 03/23/20 Rx Metoprolol Tartrate [Lopressor] 12.5 mg PO DAILY 12/01/18 03/23/20 History lisinopriL [Zestril] 5 mg PO HS 12/01/18 03/23/20 History Isosorbide Mononitrate ER [Imdur] 15 mg PO DAILY #30 dose 09/19/19 03/23/20 Rx Nitroglycerin Sl Tabs [Nitrostat] 0.4 mg SUBLINGUAL Q5M PRN #25 tab 09/19/19 03/23/20 Rx Ticagrelor [Brilinta] 90 mg PO BID #60 tab 09/19/19 03/23/20 Rx traZODone HCL [Desyrel] 50 mg PO HS 03/23/20 03/23/20 History Allergies Allergy/AdvReac Type Severity Reaction Status Date / Time No Known Allergies Allergy Verified 03/23/20 14:28 Physical Exam Vitals: Vital Signs Temp Pulse Pulse Pulse Pulse Pulse Resp 03/24/20 07:58 98 F 60 16 03/24/20 04:15 98.4 F 66 65 55 L 18 03/23/20 20:00 98 F 50 L 17 03/23/20 18:21 70 64 60 03/23/20 14:30 55 L 19 03/23/20 14:26 98.1 F 59 L 16 03/23/20 14:15 52 L 03/23/20 14:00 54 L 03/23/20 13:45 51 L 03/23/20 13:30 53 L 03/23/20 13:15 52 L 03/23/20 13:00 57 L 03/23/20 12:51 56 L 03/23/20 12:40 98.3 F 62 16 BP BP BP BP BP Pulse Ox 03/24/20 07:58 112/66 97 03/24/20 04:15 139/85 136/80 116/69 96 03/23/20 20:00 100/66 97 03/23/20 18:21 125/84 114/77 130/74 10/12/20 14:30 109/91 98 03/23/20 14:26 111/71 98 03/23/20 14:15 103/66 99 03/23/20 14:00 102/66 99 03/23/20 13:45 101/75 99 03/23/20 13:30 108/69 99 03/23/20 13:15 108/69 99 03/23/20 13:00 99 03/23/20 12:51 98 03/23/20 12:40 105/66 98 Intake and Output 03/23/20 03/24/20 03/24/20 22:59 06:59 14:59 Other: # Voids 2 PHYSICAL EXAMINATION: GENERAL: 59-year-old gentleman in no acute distress at the time of my examination HEENT: Head is atraumatic, normocephalic. Pupils equal, round. Sclera anicteric. Conjunctiva are clear. Mucous membranes of the mouth are moist. Neck is supple. There is no elevated jugular venous pressure. No carotid bruit is heard. HEART EXAMINATION: Heart S1, S2 normal. No murmur or gallop heard. CHEST EXAMINATION: Lungs are clear to auscultation and precussion. No chest wall tenderness is noted on palpation or with deep breathing. ABDOMEN: Soft, nontender. Bowel sounds are heard. No organomegaly noted. EXTREMITIES: 2+ peripheral pulses with no evidence of peripheral edema and no c liz tenderness noted. NEUROLOGIC patient is awake, alert and oriented 3 . Results 03/24/20 05:12 03/24/20 05:12 Cardiac Enzymes 03/23/20 03/23/20 03/23/20 Range/Units 13:14 13:14 15:57 AST 22 (17-59) U/L Troponin I <0.012 <0.012 (0.000-0.034) ng/mL 03/23/20 Range/Units 19:31 AST (17-59) U/L Troponin I <0.012 (0.000-0.034) ng/mL Coagulation 03/23/20 Range/Units 13:14 PT 9.7 (9.0-12.0) sec APTT 22.9 (22.0-30.0) sec Lipids 03/24/20 Range/Units 05:12 Triglycerides 119 (<150) mg/dL Cholesterol 107 (<200) mg/dL HDL Cholesterol 48 (40-60) mg/dL CBC 03/23/20 03/24/20 Range/Units 13:14 05:12 WBC 7.7 5.3 (3.8-10.6) k/uL RBC 4.52 4.09 L (4.30-5.90) m/uL Hgb 13.5 13.2 (13.0-17.5) gm/dL Hct 42.5 39.5 (39.0-53.0) % Plt Count 225 198 (150-450) k/uL Comprehensive Metabolic Panel 03/23/20 03/24/20 Range/Units 13:14 05:12 Sodium 138 139 (137-145) mmol/L Potassium 4.2 3.9 (3.5-5.1) mmol/L Chloride 106 108 H (98-107) mmol/L Carbon Dioxide 27 27 (22-30) mmol/L BUN 11 13 (9-20) mg/dL Creatinine 1.47 H 1.34 H (0.66-1.25) mg/dL Glucose 101 H 104 H (74-99) mg/dL Calcium 9.8 9.5 (8.4-10.2) mg/dL AST 22 (17-59) U/L ALT 20 (4-49) U/L Alkaline Phosphatase 53 (38-126) U/L Total Protein 6.1 L (6.3-8.2) g/dL Albumin 3.6 (3.5-5.0) g/dL Current Medications Generic Name Dose Route Start Last Admin Trade Name Freq PRN Reason Stop Dose Admin Hydrocodone Bitart/Acetaminophen 1 each 03/23/20 20:47 Hydrocodone/Apap 5-325mg 1 Each Tab PO Q6HR PRN Pain Alprazolam 0.25 mg 03/23/20 20:47 Alprazolam 0.25 Mg Tab PO TID PRN Anxiety Alprazolam 0.25 mg 03/24/20 08:47 Alprazolam 0.25 Mg Tab PO Q6HR PRN Mild Anxiety Alprazolam 0.5 mg 03/24/20 08:47 Alprazolam 0.5 Mg Tab PO Q6HR PRN Moderate Anxiety Aspirin 81 mg 03/24/20 09:00 03/24/20 09:17 Aspirin 81 Mg PO Not Given DAILY CURTIS Atorvastatin Calcium 80 mg 10/12/20 21:00 03/23/20 21:30 Atorvastatin 80 Mg Tab PO 80 mg HS CURTIS Administration Hydromorphone HCl 0.5 mg 03/23/20 18:14 Hydromorphone 0.5 Mg/0.5 Ml Syringe IVP Q6HR PRN Pain Sodium Chloride 1,000 ml/ IV 1,000 mls @ 77.111 mls/hr 03/24/20 08:47 03/24/20 09:26 Solution IV 03/24/20 21:45 77.111 mls/hr .[id number] ONE Administration 1 ML/KG/HR Methylphenidate HCl 10 mg 03/24/20 08:00 03/24/20 09:25 Methylphenidate Hcl 10 Mg Tab PO Not Given TID@0800,1300,1800 CURTIS Nitroglycerin 0.4 mg 03/23/20 14:17 Nitroglycerin Sl Tabs 0.4 Mg Tab SUBLINGUAL Q5M PRN Chest Pain Nitroglycerin 0.4 mg 03/24/20 08:47 Nitroglycerin Sl Tabs 0.4 Mg Tab SUBLINGUAL Q5M PRN Chest Pain Sodium Chloride 10 ml 03/23/20 21:00 03/24/20 09:16 Sodium Chloride 0.9% Flush 10 Ml Syringe IV Not Given BID CURTIS Ticagrelor 90 mg 03/23/20 21:00 03/24/20 09:24 Ticagrelor 90 Mg Tab PO 90 mg BID CURTIS Administration Trazodone HCl 50 mg 03/23/20 21:00 03/23/20 21:30 Trazodone Hcl 50 Mg Tab PO 50 mg HS CURTIS Administration Intake and Output 03/23/20 03/24/20 03/24/20 22:59 06:59 14:59 Other: # Voids 2 03/24/20 05:12 03/24/20 05:12 EKG Interpretations (text) EKG shows a sinus rhythm/sinus bradycardia with mild lateral ST depression Assessment and Plan Plan: Assessment and plan #1 chest discomfort, suggestive of unstable angina, troponins are negative 3. EKG did not reveal any acute changes. #2 known history of coronary artery disease with prior myocardial infarction and stenting of the OM in September 2018 and subsequent stenting of the same vessel in September 2019 to #3 hyper lipidemia #4 nicotine dependence, patient quit smoking approximately 4 months ago Plan We will obtain an echocardiogram with Doppler study. Patient is also been advised to undergo cardiac catheterization by Dr. Lee, the risks and the benefits were explained to the patient in detail and he is willing to proceed. Further recommendations will be based on the findings of this test and the patient's overall clinical course. DNP note has been reviewed, I agree with a documented findings and plan of care. Patient was seen and examined.
[2020-03-24] MEDS ORDERED: MIDAZOLAM 2 MG/2 ML VIAL IVP ONE (11:38)
[2020-03-24] MEDS ORDERED: fentaNYL (PF) 50 MCG/ML 2 ML AMP IVP ONE (11:39)
[2020-03-24] MEDS ORDERED: LIDOCAINE 1% INJ 10MG/ML (20 ML MDV) SQ ONE (11:43)
[2020-03-24] MEDS: HYDROmorphone 1 MG/ML 1 ML SYRINGE IVP ONE ×2 (11:58→12:02)
[2020-03-24] MEDS ORDERED: NITROGLYCERIN SL TABS 0.4 MG TAB SUBLINGUAL ONE (12:00)
[2020-03-24] MEDS ORDERED: NITROGLYCERIN OINT 1 INCH/GM PACKET TOPICAL ONE (12:00)
[2020-03-24] MEDS ORDERED: NITROGLYCERIN 1000MCG/10ML SYRINGE INTRACORON ONE (12:07)
[2020-03-24] MEDS ORDERED: IOPAMIDOL-370 125ML BTL INJ ONE (12:12)
[2020-03-24] MEDS ORDERED: RX INFO: IV CONTRAST WAS GIVEN 1 EACH MISC MISCELLANE PRN (12:18)
--- NOTE | 2020-03-24 12:51 | CC ---
CARDIAC CATHETERIZATION REPORT INDICATION: Unstable angina in a patient with known coronary artery disease, status post angioplasty of [place] circumflex coronary artery. PROCEDURE NOTE: After obtaining informed consent, left heart catheterization and coronary angiogram were performed via the right femoral artery using standard [place] catheters. Patient tolerated the procedure well without any obvious immediate complications. A femoral angiogram was performed and Angio-Seal was deployed for hemostasis. Patient received moderate conscious sedation. Total sedation time was 31 minutes. FINDINGS: HEMODYNAMICS: Left ventricular end diastolic pressure 20 mm. There is no significant gradient across the aortic valve. LEFT VENTRICULOGRAM: Left ventriculogram is not performed. ANGIOGRAPHIC DATA: LEFT MAIN CORONARY ARTERY: Left main coronary artery is a normal-sized vessel and is free of stenosis. Divides into left anterior descending coronary artery and circumflex coronary artery. LAD and its branches are free of significant stenosis. CIRCUMFLEX CORONARY ARTERIES: The previously stented segment within the circumflex coronary artery appears patent with some narrowing with 20% to 30% narrowing distal to the stent. Right coronary artery is a large dominant vessel and there was severe catheter-induced spasm in the proximal portion and patient had chest discomfort after injecting the right and had to be given Dilaudid, nitroglycerin paste, and sublingual nitroglycerin. Following this, I obtained further angiograms using a shashi catheter and injected intracoronary nitroglycerin with which the vessel appeared normal. This was a problem they noted in the previous cath also. CONCLUSION: 1. Patent stent within the circumflex coronary artery. 2. Coronary spasm primarily involving the right coronary artery. PLAN: Patient's management is going to be with medical therapy. They can add the nitrates and channel blockers to what he is on. MMODL / IJN: [id number] /
--- NOTE | 2020-03-24 13:00 | ECHOF ---
Referral Reason:chest pain MEASUREMENTS -------- HEIGHT: 170.2 cm WEIGHT: 77.1 kg BP: 139/85 RVIDd: 2.9 cm (< 3.3) IVSd: 1.0 cm (0.6 - 1.1) LVIDd: 4.3 cm (3.9 - 5.3) LVPWd: 1.0 cm (0.6 - 1.1) IVSs: 1.5 cm LVIDs: 3.3 cm LVPWs: 1.5 cm LA Diam: 3.3 cm (2.7 - 3.8) LAESV Index (A-L): 22.30 ml/m Ao Diam: 3.1 cm (2.0 - 3.7) AV Cusp: 2.2 cm (1.5 - 2.6) MV EXCURSION: 10.933 mm (> 18.000) MV EF SLOPE: 87 mm/s (70 - 150) EPSS: 0.5 cm MV E [place]: 0.98 m/s MV DecT: 211 ms MV A [place]: 0.72 m/s MV E/A Ratio: 1.36 RAP: 5.00 mmHg RVSP: 19.78 mmHg FINDINGS -------- Sinus rhythm. This was a technically adequate study. The left ventricular size is normal. Left ventricular wall thickness is normal. Overall left vent ricular systolic function is normal with, an EF between 55 - 60 %. The right ventricle is normal in size. Normal LA size by volume 22+/-6 ml/m2. The right atrial size is normal. Aneurysmal Interatrial septum. The aortic valve is trileaflet, and appears structurally normal. No aortic stenosis or regurgitation. The mitral valve is normal. There is trace to mild mitral regurgitation. The tricuspid valve appears structurally normal. Mild tricuspid regurgitation present. Right vent ricular systolic pressure is normal at < 35 mmHg. There is no pulmonic regurgitation present. The aortic root size is normal. Normal inferior vena cava with normal inspiratory collapse consistent with estimated right atrial pre ssure of 5 mmHg. There is no pericardial effusion. CONCLUSIONS -------- 1. Left ventricular wall thickness is normal. 2. Overall left ventricular systolic function is normal with, an EF between 55 - 60 %. 3. Normal LA size by volume 22+/-6 ml/m2. 4. Aneurysmal Interatrial septum. 5. The aortic valve is trileaflet, and appears structurally normal. No aortic stenosis or regurgitati on. 6. There is trace to mild mitral regurgitation. 7. Mild tricuspid regurgitation present. 8. There is no pericardial effusion. HEATER WORKER: Genevieve Mckay RDCS
[2020-03-24] MEDS: ISOSORBIDE MONONITRATE ER 15 MG TAB PO SCH (13:35)
--- NOTE | 2020-03-24 15:28 | PN ---
PROGRESS NOTE DATE OF SERVICE: 03/24/2020 This is a 59-year-old gentleman admitted with chest pain, possible unstable angina, had previous stents. The patient underwent cardiac cath by Cardiology, which showed patent stents and a coronary spasm. No chest pain. No palpitations. No fever. PHYSICAL EXAMINATION: Alert and oriented x3. Pulse is 56, blood pressure 120/84, respirations 16, temperature 98.1, pulse ox 100% on room air. HEENT: Conjunctivae normal. CARDIOVASCULAR SYSTEM: S1, S2 muffled. RESPIRATORY SYSTEM: Breath sounds diminished at the bases, no rhonchi, no crackles. ABDOMEN: Soft, nontender. NERVOUS SYSTEM: No focal deficits. LABS: WBC 5.3, hemoglobin is 13.2, sodium is 130, potassium 3.9, glucose 105. ASSESSMENT: 1. Chest pain, possible unstable angina possibly secondary to cardiac coronary spasm. 2. Status post cardiac catheterization and patent stents. 3. Increased creatinine with possible acute renal failure with acute tubular necrosis and prerenal factors. 4. Orthostatic hypotension, bradycardia, possibly medication induced. 5. History of CAD stenting of the obtuse marginal branch. 6. ADD, ADHD. 7. Remote history of nicotine dependence. 8. Hypertension. RECOMMENDATION: Recommend to continue current management and symptomatic treatment. Will monitor the creatinine closely, continue with IV fluids. Repeat labs in the morning. Will add Imdur to the current regimen. Guarded prognosis. Further recommendations to follow. MMMIGUELL / FENG: [id number] /
[2020-03-24] MEDS: traZODone HCL 50 MG TAB PO SCH (20:38)
[2020-03-24] MEDS: ATORVASTATIN 80 MG TAB PO SCH (20:38)
[2020-03-25] MEDS: SODIUM CHLORIDE 0.9% 1,000 ML IV SCH (03:10)
[2020-03-25 04:36] VITALS: TEMP 98.2
[2020-03-25 07:50] VITALS: BP 126/82; PULSE 52; RESP 14
[2020-03-25 07:56] LABS: Basophils % (A) 1 %; Eosinophils # (A) 0.4 k/uL (0-0.7); Eosinophils % (A) 5 %; HCT 44.9 % (39.0-53.0); HGB 13.7 gm/dL (13.0-17.5); Lymphocytes # (A) 1.4 k/uL (1.0-4.8); Lymphocytes % (A) 19 %; MCH 30.1 pg (25.0-35.0); MCHC 30.5 g/dL (31.0-37.0); MCV 98.6 fL (80.0-100.0); Mean Platelet Volume 6.9; Monocytes # (A) 0.5 k/uL (0-1.0); Monocytes % (A) 7 %; Neutrophils # (A) 4.8 k/uL (1.3-7.7); Neutrophils % (A) 67 %; Platelet Count 210 k/uL (150-450); RBC 4.56 m/uL (4.30-5.90); RDW 13.8 % (11.5-15.5); WBC 7.2 k/uL (3.8-10.6)
[2020-03-25 08:02] LABS: Calcium 9.1 mg/dL (8.4-10.2); Potassium 4.1 mmol/L (3.5-5.1)
[2020-03-25] MEDS: ISOSORBIDE MONONITRATE ER 15 MG TAB PO SCH (08:49)
[2020-03-25] MEDS: ASPIRIN 81 MG PO SCH (08:50)
[2020-03-25] MEDS: METHYLPHENIDATE HCL 10 MG TAB PO SCH (08:50)
[2020-03-25] MEDS ORDERED: amLODIPine 2.5 MG TAB PO SCH (09:00)
--- NOTE | 2020-03-25 09:35 | P.PN ---
Subjective Progress Note Date: 03/25/20 This is a pleasant 59-year-old gentleman who follows with Dr. Lee in the office. He has a known history of myocardial infarction with stenting of the OM in September 2018, subsequent to that patient underwent angioplasty and stenting of the OM in September of this year, history of hyperlipidemia, prior nicotine dependence he quit smoking 4 months ago. He presents to the hospital with symptoms of chest pressure and associated shortness of breath, patient is also been experiencing some numbness and tingling in his left hand and arm. Symptoms started approximately 5 days ago [place] They have been occurring off and on since then, mostly exertional in nature. Chest x-ray on presentation here did not reveal any acute process. EKG shows normal sinus rhythm, sinus bradycardia with mild lateral ST depression. Echocardiogram with Doppler study performed in September 2019 showed an ejection fraction of 55-60%. Blood pressure 136/80 with a heart rate in the 60s, respirations 18 white blood cell count 5.3, hemoglobin 13.2, platelet count 198. Sodium 139, potassium 3.9, BUN 13, creatinine 1.3 troponins were negative 3. At the time of my examination this morning, chest pain is resolved. 03/25/2020 Patient was seen and examined this morning, underwent a cardiac catheterization yesterday which revealed a patent stent within the circumflex coronary artery, there was evidence of coronary spasm primarily involving the right coronary artery. Patient states this morning he still is having symptoms of chest discomfort and shortness of breath. Echocardiogram with Doppler study revealed an ejection fraction of 55-60%, aneurysmal intra-atrial septum noted. No significant orthostatics documented. Blood pressure this morning 126/80 with a heart rate in the 50s, 98% on room air. White blood cell count 7.2, hemoglobin 13.7, platelet count 210. Sodium 138, potassium 4.1, BUN 11, creatinine 1.3. Objective - Vital Signs Vital signs: Vital Signs Temp 98.2 F 03/25/20 04:20 Pulse 52 L 03/25/20 07:43 Resp 14 03/25/20 07:43 BP 126/82 03/25/20 07:43 Pulse Ox 98 03/25/20 07:43 Intake & Output 03/24/20 03/25/20 03/25/20 18:59 06:59 18:59 Intake Total 715 Balance 715 Intake: IV 265 Intake, IV Titration 150 Amount Sodium Chloride 0.9% 1, 150 000 ml @ 75 mls/hr IV . [id number] CURTIS Rx#:[id number] Oral 300 Other: # Voids 1 2 - Exam PHYSICAL EXAMINATION: GENERAL: 59-year-old gentleman in no acute distress at the time of my examination HEENT: Head is atraumatic, normocephalic. Pupils equal, round. Sclera anicteric. Conjunctiva are clear. Mucous membranes of the mouth are moist. Neck is supple. There is no elevated jugular venous pressure. No carotid bruit is heard. HEART EXAMINATION: Heart S1, S2 normal. No murmur or gallop heard. CHEST EXAMINATION: Lungs are clear to auscultation and precussion. No chest wall tenderness is noted on palpation or with deep breathing. ABDOMEN: Soft, nontender. Bowel sounds are heard. No organomegaly noted. EXTREMITIES: 2+ peripheral pulses with no evidence of peripheral edema and no calf tenderness noted. NEUROLOGIC patient is awake, alert and oriented 3 - Labs CBC & Chem 7: 03/25/20 07:28 03/25/20 07:28 Labs: Abnormal Lab Results - Last 24 Hours (Table) 03/25/20 03/25/20 Range/Units 07:28 07:28 MCHC 30.5 L (31.0-37.0) g/dL Creatinine 1.33 H (0.66-1.25) mg/dL Glucose 107 H (74-99) mg/dL Assessment and Plan Plan: Assessment and plan #1 chest discomfort, suggestive of unstable angina, troponins are negative 3. EKG did not reveal any acute changes. #2 known history of coronary artery disease with prior myocardial infarction and stenting of the OM in September 2018 and subsequent stenting of the same vessel in September 2019 to #3 hyper lipidemia #4 nicotine dependence, patient quit smoking approximately 4 months ago Plan Patient underwent a cardiac catheterization which did not reveal any significant obstructive coronary artery disease, site of prior stenting in the circumflex artery looked good. Patient did have evidence of spasm in the right coronary artery noted. Echocardiogram with Doppler study revealed a normal left ventricular systolic function. From cardiology's perspective, the patient may be able to be discharged home on a baby aspirin, Lipitor 80, Imdur 15 mg daily, Brilinta 90 mg twice a day, patient was started on Norvasc to half milligrams daily, his beta festus and JANY inhibitor continue to remain on hold at this time. Patient will be seen and reevaluated in the office in one week. Dr. Lee DNP note has been reviewed, I agree with a documented findings and plan of care. Patient was seen and examined.
--- NOTE | 2020-03-26 05:59 | DS ---
DISCHARGE SUMMARY DATE OF SERVICE: 03/25/2020 FINAL DIAGNOSES: 1. Chest pain, possible unstable angina with possibly secondary coronary artery spasm. 2. Status post cardiac catheterization and patent stents. 3. Increased creatinine with possible acute renal failure acute tubular necrosis, prerenal factors, improved. 4. Orthostatic hypotension, bradycardia, possibly medication induced, improved. 5. History of coronary artery disease, stenting of the obtuse marginal branch previously. 6. Attention deficit disorder, attention deficit hyperactivity disorder history. 7. Remote history of nicotine dependence. 8. Hypertension. DISCHARGE DISPOSITION: The patient will be discharged in stable condition with guarded prognosis. HISTORY OF PRESENT ILLNESS: This 59-year-old gentleman with a past medical history of multiple medical problems admitted with chest pain. Cardiology performed a cardiac catheterization, which showed patent stents. Coronary vasospasm was suspected. Medication adjusted. On exam, vitals are stable. CARDIOVASCULAR: S1, S2 muffled. ABDOMEN: Soft. NERVOUS SYSTEM: No focal deficits. Creatinine improved significantly. DISCHARGE ADVICE AND MEDICATIONS: 1. Diet is cardiac. 2. Activity limited until followup. 3. Follow up with a primary physician in 2 to 3 days with CBC, BMP. 4. Follow up with Cardiology as recommended. Medications are: 1. Desyrel 50 mg at bedtime. 2. Lopressor 12.5 mg daily. 3. Ritalin 10 mg t.i.d. 4. Zestril 5 mg at bedtime. 5. Aspirin 81 mg p.o. daily. 6. Brilinta 90 mg p.o. b.i.d. 7. Imdur ER 15 mg p.o. daily. 8. Lipitor 80 mg at bedtime. 9. Nitrostat 0.4 sublingual p.r.n. 10.Norvasc 2.5 mg daily. MMODL / IJN: [id number] /
== END 2020-03-25 11:58 | disposition home or self-care (01) ==
LOC: EC 12:31 → 3NCARDOBS 14:17
PROVIDERS: ADMIT Hospitalist; ATTEND Hospitalist
DX: I25.111 Atherosclerotic heart disease of native coronary artery with angina pectoris with documented spasm (principal); R07.89 Other chest pain; R06.09 Other forms of dyspnea; R11.0 Nausea; R06.02 Shortness of breath; R20.2 Paresthesia of skin; R20.0 Anesthesia of skin; R94.4 Abnormal results of kidney function studies; I95.1 Orthostatic hypotension; R00.1 Bradycardia, unspecified; R94.31 Abnormal electrocardiogram [ECG] [EKG]; I25.3 Aneurysm of heart; F90.9 Attention-deficit hyperactivity disorder, unspecified type; I10 Essential (primary) hypertension; E78.5 Hyperlipidemia, unspecified; I25.2 Old myocardial infarction; Z20.828 Contact with and (suspected) exposure to other viral communicable diseases; Z95.5 Presence of coronary angioplasty implant and graft; Z87.891 Personal history of nicotine dependence; Z79.899 Other long term (current) drug therapy; Z98.890 Other specified postprocedural states; Z79.02 Long term (current) use of antithrombotics/antiplatelets; Z79.82 Long term (current) use of aspirin; Z80.0 Family history of malignant neoplasm of digestive organs; Z80.3 Family history of malignant neoplasm of breast
CPT/HCPCS: 93005 ×2; 99285; 36415; 93306; 93458; 85379; 83880; 80061; 80053; 80048 ×2; 83735; 84484; 85025 ×3; 85610; 85730; 71046; G0378 ×3; C1769 ×2; C1760; C1894; U0003; J2250; J2001; J3010; J1170; Q9967

== ENCOUNTER 2020-07-15 19:59 | Observation (INO) | payer BC ==
[2020-07-15] MEDS ORDERED: ASPIRIN 81 MG PO STA (20:12)
[2020-07-15] MEDS ORDERED: NITROGLYCERIN OINT 1 INCH/GM PACKET TOPICAL STA (20:15)
[2020-07-15 20:18] LABS: Basophils # (A) 0.1 k/uL (0-0.2); Basophils % (A) 2 %; Eosinophils # (A) 0.4 k/uL (0-0.7); Eosinophils % (A) 5 %; HCT 45.1 % (39.0-53.0); HGB 14.7 gm/dL (13.0-17.5); Hypochromasia Moderate; Lymphocytes # (A) 2.4 k/uL (1.0-4.8); Lymphocytes % (A) 31 %; MCH 31.8 pg (25.0-35.0); MCHC 32.7 g/dL (31.0-37.0); MCV 97.3 fL (80.0-100.0); Macrocytosis Slight; Mean Platelet Volume 6.7; Monocytes # (A) 0.4 k/uL (0-1.0); Monocytes % (A) 5 %; Neutrophils # (A) 4.3 k/uL (1.3-7.7); Neutrophils % (A) 55 %; Platelet Count 241 k/uL (150-450); Poikilocytosis Moderate; RBC 4.63 m/uL (4.30-5.90); RDW 15.6 % (11.5-15.5); WBC 7.9 k/uL (3.8-10.6)
--- NOTE | 2020-07-15 20:18 | ED ---
General Adult HPI - General Chief complaint: Chest Pain Stated complaint: Chest Pain Time Seen by Provider: 07/15/20 20:01 Source: patient, EMS, RN notes reviewed Mode of arrival: EMS Limitations: no limitations - History of Present Illness Initial comments: Patient is a pleasant 60-year-old male presenting to the emergency Department with complaints of chest discomfort. Onset of symptoms was just earlier this evening. Patient's gave him 3 nitroglycerin with resolution of symptoms. Patient states discomfort did feel like tightness previously and was waxing and waning. Discomfort was moderate to severe. Patient had associated dyspnea. No nausea or diaphoresis. Patient does have history of previous cardiac problems however that felt more like indigestion. No back pain.No leg pain or leg swelling. - Related Data Home Medications Medication Instructions Recorded Confirmed Methylphenidate HCl [Ritalin] 10 mg PO TID 10/02/18 03/23/20 Metoprolol Tartrate [Lopressor] 12.5 mg PO DAILY 12/01/18 03/23/20 lisinopriL [Zestril] 5 mg PO HS 12/01/18 03/23/20 traZODone HCL [Desyrel] 50 mg PO HS 03/23/20 03/23/20 Previous Rx's Medication Instructions Recorded Aspirin 81 mg PO DAILY #30 chew 10/04/18 Atorvastatin [Lipitor] 80 mg PO HS #30 tab 10/04/18 Nitroglycerin Sl Tabs [Nitrostat] 0.4 mg SUBLINGUAL Q5M PRN #25 tab 09/19/19 Isosorbide Mononitrate ER [Imdur] 15 mg PO DAILY #30 dose 03/25/20 Ticagrelor [Brilinta] 90 mg PO BID #60 tab 03/25/20 amLODIPine [Norvasc] 2.5 mg PO DAILY #30 tab 03/25/20 Allergies Allergy/AdvReac Type Severity Reaction Status Date / Time No Known Allergies Allergy Verified 07/15/20 20:11 Review of Systems ROS Statement: Those systems with pertinent positive or pertinent negative responses have been documented in the HPI. ROS Other: All systems not noted in ROS Statement are negative. Constitutional: Denies: fever Eyes: Denies: eye pain ENT: Denies: ear pain Respiratory: Reports: dyspnea. Denies: cough Cardiovascular: Reports: chest pain Endocrine: Denies: fatigue Gastrointestinal: Denies: abdominal pain Genitourinary: Denies: dysuria Musculoskeletal: Denies: back pain Skin: Denies: rash Neurological: Denies: weakness Past Medical History Past Medical History: Myocardial Infarction ([place]) Additional Past Medical History / Comment(s): STEMI 2019 Last Myocardial Infarction Date:: 10/02/2018 History of Any Multi-Drug Resistant Organisms: None Reported Past Surgical History: Heart Catheterization With Stent Additional Past Surgical History / Comment(s): right eye surgery, 7 cardiac stents, Past Anesthesia/Blood Transfusion Reactions: No Reported Reaction Date of Last Stent Placement:: 09/27/2018 Past Psychological History: ADD/ADHD Smoking Status: Former smoker Past Alcohol Use History: Rare Past Drug Use History: None Reported - Past Family History Father Family Medical History: Cancer Additional Family Medical History / Comment(s): pancreatic cancer Mother Family Medical History: Cancer Additional Family Medical History / Comment(s): breast cancer, her father had c olon cancer General Exam Limitations: no limitations General appearance: alert, in no apparent distress Head exam: Present: normocephalic Eye exam: Present: normal appearance ENT exam: Present: normal exam Neck exam: Present: normal inspection Respiratory exam: Present: normal lung sounds bilaterally. Absent: chest wall tenderness Cardiovascular Exam: Present: regular rate, normal rhythm Expanded Peripheral pulses: 2+: Radial (R), Radial (L), Posterior Tibialis (R), Posterior Tibialis (L) GI/Abdominal exam: Present: soft. Absent: distended, tenderness Extremities exam: Present: normal inspection. Absent: pedal edema, calf tenderness Neurological exam: Present: alert Psychiatric exam: Present: normal affect, normal mood Skin exam: Present: normal color Course Vital Signs 07/15/20 07/15/20 20:00 20:51 Temperature 98.0 F Pulse Rate 79 70 Respiratory 18 18 Rate Blood Pressure 128/101 116/65 O2 Sat by Pulse 96 100 Oximetry EKG Findings - EKG Comments: EKG Findings:: Normal sinus rhythm at 75. MA 144. QRS 96. QT 406. QTc 453. Normal axis. Normal QRS. No acute ST change. Medical Decision Making - Medical Decision Making Patient reevaluated and resting comfortably in bed. Patient and family updated on results and plan. Case discussed with Dr. reich, who will admit covering for Dr. Martinez. He did evaluate patient in the emergency department. - Lab Data Result diagrams: 07/15/20 20:12 07/15/20 20:12 Lab Results 07/15/20 07/15/20 07/15/20 Range/Units 20:12 20:12 20:12 WBC 7.9 (3.8-10.6) k/uL RBC 4.63 (4.30-5.90) m/uL Hgb 14.7 (13.0-17.5) gm/dL Hct 45.1 (39.0-53.0) % MCV 97.3 (80.0-100.0) fL MCH 31.8 (25.0-35.0) pg MCHC 32.7 (31.0-37.0) g/dL RDW 15.6 H (11.5-15.5) % Plt Count 241 (150-450) k/uL MPV 6.7 Neutrophils % 55 % Lymphocytes % 31 % Monocytes % 5 % Eosinophils % 5 % Basophils % 2 % Neutrophils # 4.3 (1.3-7.7) k/uL Lymphocytes # 2.4 (1.0-4.8) k/uL Monocytes # 0.4 (0-1.0) k/uL Eosinophils # 0.4 (0-0.7) k/uL Basophils # 0.1 (0-0.2) k/uL Hypochromasia Moderate Poikilocytosis Moderate Macrocytosis Slight PT 9.7 (9.0-12.0) sec INR 0.9 (<1.2) APTT 22.5 (22.0-30.0) sec D-Dimer (<0.60) mg/L FEU Sodium 141 (137-145) mmol/L Potassium 4.1 (3.5-5.1) mmol/L Chloride 108 H (98-107) mmol/L Carbon Dioxide 18 L (22-30) mmol/L Anion Gap 15 mmol/L BUN 12 (9-20) mg/dL Creatinine 1.19 (0.66-1.25) mg/dL Est GFR (CKD-EPI)AfAm 77 (>60 ml/min/1.73 sqM) Est GFR (CKD-EPI)NonAf 67 (>60 ml/min/1.73 sqM) Glucose 112 H (74-99) mg/dL Calcium 9.3 (8.4-10.2) mg/dL Magnesium 2.2 (1.6-2.3) mg/dL Total Bilirubin 0.5 (0.2-1.3) mg/dL AST 33 (17-59) U/L ALT 29 (4-49) U/L Alkaline Phosphatase 50 (38-126) U/L Troponin I (0.000-0.034) ng/mL Total Protein 7.1 (6.3-8.2) g/dL Albumin 4.1 (3.5-5.0) g/dL 07/15/20 07/15/20 Range/Units 20:12 20:12 WBC (3.8-10.6) k/uL RBC (4.30-5.90) m/uL Hgb (13.0-17.5) gm/dL Hct (39.0-53.0) % MCV (80.0-100.0) fL MCH (25.0-35.0) pg MCHC (31.0-37.0) g/dL RDW (11.5-15.5) % Plt Count (150-450) k/uL MPV Neutrophils % % Lymphocytes % % Monocytes % % Eosinophils % % Basophils % % Neutrophils # (1.3-7.7) k/uL Lymphocytes # (1.0-4.8) k/uL Monocytes # (0-1.0) k/uL Eosinophils # (0-0.7) k/uL Basophils # (0-0.2) k/uL Hypochromasia Poikilocytosis Macrocytosis PT (9.0-12.0) sec INR (<1.2) APTT (22.0-30.0) sec D-Dimer 10.30 H (<0.60) mg/L FEU Sodium (137-145) mmol/L Potassium (3.5-5.1) mmol/L Chloride (98-107) mmol/L Carbon Dioxide (22-30) mmol/L Anion Gap mmol/L BUN (9-20) mg/dL Creatinine (0.66-1.25) mg/dL Est GFR (CKD-EPI)AfAm (>60 ml/min/1.73 sqM) Est GFR (CKD-EPI)NonAf (>60 ml/min/1.73 sqM) Glucose (74-99) mg/dL Calcium (8.4-10.2) mg/dL Magnesium (1.6-2.3) mg/dL Total Bilirubin (0.2-1.3) mg/dL AST (17-59) U/L ALT (4-49) U/L Alkaline Phosphatase (38-126) U/L Troponin I <0.012 (0.000-0.034) ng/mL Total Protein (6.3-8.2) g/dL Albumin (3.5-5.0) g/dL - Radiology Data Radiology results: report reviewed (CT angios of the chest negative for pulmonary embolism.), image reviewed (Chest x-ray shows no acute process) Disposition Clinical Impression: Chest pain Disposition: ADMITTED IP TO THIS HOSP Is patient prescribed a controlled substance at d/c from ED?: No Referrals: Thalia Blanco MD [Primary Care Provider] - 1-2 days Decision Time: 21:51
[2020-07-15 20:26] LABS: INR 0.9 (<1.2); Partial Thromboplastin Time 22.5 sec (22.0-30.0); Prothrombin Time 9.7 sec (9.0-12.0)
[2020-07-15 20:31] LABS: Albumin 4.1 g/dL (3.5-5.0); Calcium 9.3 mg/dL (8.4-10.2); Magnesium 2.2 mg/dL (1.6-2.3); Potassium 4.1 mmol/L (3.5-5.1); Total Bilirubin 0.5 mg/dL (0.2-1.3); Total Protein 7.1 g/dL (6.3-8.2)
--- NOTE | 2020-07-15 21:05 | XR ---
EXAMINATION TYPE: XR chest 2V DATE OF EXAM: 07/15/2020 COMPARISON: 03/23/2020 HISTORY: Chest pain TECHNIQUE: FINDINGS: Heart is normal. Lungs are clear of consolidation. There are no hilar masses. There are kathy st leads. Thoracic aorta is atheromatous. There is no pleural effusion. Bony thorax is intact. IMPRESSION: No active cardiopulmonary disease. Normal heart.
--- NOTE | 2020-07-15 21:34 | CT ---
EXAMINATION TYPE: CT angio chest DATE OF EXAM: 07/15/2020 COMPARISON: None HISTORY: chest pain, elevated d-dimer CT DLP: 336.9 mGycm Automated exposure control for dose reduction was used. CONTRAST: Performed with IV Contrast, patient injected with 78cc mL of Isovue 370. There are 3-D post processed images. The lungs are clear of consolidation. There is no evidence of a pulmonary mass. There is mild subsegm ental atelectasis in the right lower lobe. There is no pleural effusion. Heart size is normal. There is no pericardial effusion. There is small hiatal hernia. There is no mediastinal adenopathy. There are no hilar masses. Thoracic aorta is intact. There is no aneurysm or dissection. Ascending aorta measures 3.5 cm. There is no evidence of filling defect in the pulmonary arteries. Pulmonary arteries appear normal. T horacic spine is intact. There is no compression fracture. The sternum is intact. IMPRESSION: No evidence of pulmonary embolism. Minimal subsegmental atelectasis right lung base..
[2020-07-15] MEDS ORDERED: NITROGLYCERIN SL TABS 0.4 MG TAB SUBLINGUAL PRN (21:51)
[2020-07-16] MEDS ORDERED: HEPARIN SODIUM,PORCINE 5,000 UNIT/ML 1 ML VIAL IV ONE (00:29)
[2020-07-16] MEDS ORDERED: HEPARIN SODIUM,PORCINE 5,000 UNIT/ML 1 ML VIAL IV PRN (00:29)
[2020-07-16] MEDS ORDERED: HEPARIN SOD,PORK IN 0.45% NACL 25,000 UNIT in 0.45% NACL 1 250ML.BAG IV SCH (00:30)
--- NOTE | 2020-07-16 00:33 | P.HPIM ---
History of Present Illness H&P Date: 07/16/20 The patient is a 60-year-old male with a PMH of coronary artery disease with multiple stents, hypertension, and hyperlipidemia who presented to the emergency room with complaints of sudden onset of chest discomfort. The patient notes that he was in his usual state of health until about 7 PM when he suddenly developed a substernal pressure-like nonradiating chest discomfort. The patient was at home drinking beer, standing at the kitchen counter. The patient subsequently became lightheaded and sat down on the ground. Denied losing consciousness. The pain was 8 out of 10, with no clear alleviating or exacerbating features with associated shortness of breath. He denied nausea, vomiting, palpitations. Reports that since the pain lasted for 40 minutes, was improved by nitroglycerin sublingual. At time of interview, the patient reported feeling back to his baseline. He denied additional complaints. Denied leg pain, lower extremity swelling, fever, chills, abdominal pain, diarrhea. In the emergency room, an EKG revealed normal sinus rhythm at 75 bpm with inferior Q waves, with no acute ST/T-wave changes noted as reviewed by me. Chest CTA was negative for PE. Chest x-ray was unremarkable. Laboratory evaluation was remarkable for troponin less than 0.012, d-dimer of 10.3, chloride 108, and a CO2 of 18. Review of Systems Pertinent positives and negatives as discussed in HPI, a complete review of systems was performed and all other systems are negative. Past Medical History Past Medical History: Myocardial Infarction ([place]) Additional Past Medical History / Comment(s): STEMI 2019 Last Myocardial Infarction Date:: 10/02/2018 History of Any Multi-Drug Resistant Organisms: None Reported Past Surgical History: Heart Catheterization With Stent Additional Past Surgical History / Comment(s): right eye surgery, 7 cardiac stents, Past Anesthesia/Blood Transfusion Reactions: No Reported Reaction Date of Last Stent Placement:: 09/27/2018 Past Psychological History: ADD/ADHD Smoking Status: Former smoker Past Alcohol Use History: Rare Past Drug Use History: None Reported - Past Family History Father Family Medical History: Cancer Additional Family Medical History / Comment(s): pancreatic cancer Mother Family Medical History: Cancer Additional Family Medical History / Comment(s): breast cancer, her father had colon cancer Medications and Allergies Home Medications Medication Instructions Recorded Confirmed Type Methylphenidate HCl [Ritalin] 10 mg PO TID 10/02/18 07/15/20 History Metoprolol Tartrate [Lopressor] 12.5 mg PO DAILY 12/01/18 07/15/20 History lisinopriL [Zestril] 5 mg PO DAILY 12/01/18 07/15/20 History Nitroglycerin Sl Tabs [Nitrostat] 0.4 mg SUBLINGUAL Q5M PRN #25 tab 09/19/19 07/15/20 Rx amLODIPine [Norvasc] 2.5 mg PO DAILY #30 tab 03/25/20 07/15/20 Rx Atorvastatin [Lipitor] 80 mg PO DAILY 07/15/20 07/15/20 History Isosorbide Mononitrate ER [Imdur] 15 mg PO DAILY 07/15/20 07/15/20 History Prasugrel [Effient] 10 mg PO DAILY 07/15/20 07/15/20 History traZODone HCL 100 mg PO HS 07/15/20 07/15/20 History Allergies Allergy/AdvReac Type Severity Reaction Status Date / Time No Known Allergies Allergy Verified 07/15/20 20:11 Physical Exam Vitals: Vital Signs Temp Pulse Resp BP Pulse Ox 07/15/20 22:02 71 18 102/74 96 07/15/20 20:51 70 18 116/65 100 07/15/20 20:00 98.0 F 79 18 128/101 96 Intake and Output 07/15/20 07/15/20 07/15/20 06:59 14:59 22:59 Other: Weight 74.843 kg General: non toxic, no distress, appears at stated age, normal weight Derm: no unusual rashes/lesions no unusual ecchymoses, warm, dry Head: atraumatic, normocephalic, symmetric Eyes: EOMI, no lid lag, anicteric sclera, pupils equal round reactive to light ENT: Nose and ears atraumatic, no thrush, no pharyngeal erythema Neck: No thyromegaly, no cervical lymphadenopathy, trachea midline, supple Mouth: no lip lesion, mucus membranes moist Cardiovascular: S1S2 reg, no murmur, positive posterior tibial pulse bilateral, no edema, capillary refill less than 2 seconds Lungs: CTA bilateral, no rhonchi, no rales , no accessory muscle use Abdominal: soft, nontender to palpation, no guarding, no appreciable organomegaly, normal bowel sounds Ext: no gross muscle atrophy, muscle strength 5 out of 5 in all 4 extremities grossly, no contractures, Neuro: CN II-XI grossly intact, light touch intact all 4 extremities, finger to nose within normal limits, Psych: Alert, oriented, appropriate affect Results CBC & Chem 7: 07/15/20 20:12 07/15/20 20:12 Labs: Abnormal Lab Results - Last 24 Hours (Table) 07/15/20 07/15/20 07/15/20 Range/Units 20:12 20:12 20:12 RDW 15.6 H (11.5-15.5) % D-Dimer 10.30 H (<0.60) mg/L FEU Chloride 108 H (98-107) mmol/L Carbon Dioxide 18 L (22-30) mmol/L Glucose 112 H (74-99) mg/dL Assessment and Plan Plan: Unstable angina -Continue with heparin infusion and aspirin -Cardiology consult -Cardiac monitoring -Trend troponin Chronic conditions: Hypertension, hyperlipidemia -Continue with home medications DVT prophylaxis -Heparin infusion The patient is admitted with an anticipated lasts than 2 midnight stay for evaluation of unstable angina. CODE STATUS: Full code Discussed with: Patient Anticipated discharge date: in am Anticipated discharge place: home A total of 40 minutes was spent on the care of this complex patient more than 50% of the time was spent in counseling and care coordination.
[2020-07-16 01:28] LABS: Prothrombin Time 10.6 sec (9.0-12.0)
[2020-07-16] MEDS: NITROGLYCERIN OINT 1 INCH/GM PACKET TOPICAL SCH ×2 (01:37→07:45)
[2020-07-16 03:59] LABS: Cholesterol 148 mg/dL (<200); HDL Cholesterol 41 mg/dL (40-60); LDL Cholesterol,Calculated 60 mg/dL (0-99); Triglycerides 236 mg/dL (<150)
[2020-07-16] MEDS ORDERED: ASPIRIN 325 MG TAB PO SCH (09:00)
[2020-07-16] MEDS ORDERED: lisinopriL 5 MG TAB PO SCH (09:00)
[2020-07-16] MEDS ORDERED: METOPROLOL TARTRATE 12.5 MG TAB PO SCH (09:00)
[2020-07-16] MEDS ORDERED: PRASUGREL 10 MG TAB PO SCH (09:00)
[2020-07-16] MEDS ORDERED: amLODIPine 2.5 MG TAB PO SCH (09:00)
[2020-07-16] MEDS ORDERED: ATORVASTATIN 80 MG TAB PO SCH (09:00)
[2020-07-16] MEDS ORDERED: ISOSORBIDE MONONITRATE ER 30 MG TAB.ER.24H PO SCH (09:00)
[2020-07-16] MEDS ORDERED: ASPIRIN 81 MG PO SCH (09:00)
--- NOTE | 2020-07-16 09:48 | P.CRDCN ---
History of Present Illness Consult date: 07/16/20 History of present illness: This is a 59-year-old gentleman who used to follow with Dr. Thibodeaux in our office. He has history of previous myocardial infarction and stenting of the OM branch done in September 2018. Patient also had angioplasty and stenting of the OM branch in September 2019. He was readmitted to the hospital in March 2020 with chest pressure and shortness of breath. He had a cardiac catheterization at the time and was found to have patent stent in the OM branch. There was suspicion of spasm of the right coronary artery. Patient has been treated with nitrates and calcium channel blockers. Recently patient is planning to move to [facility] and has established with Dr. Brantley, as a manager country. Apparently had an echocardiogram done already and is scheduled to have a stress test on Monday. Yesterday patient was at a libertarian and having some drinks. He started having some discomfort on the left side of the chest which was different than the pain he had when he had a heart attack which was more in the middle of the chest with radiation to the arms. Did not have any nausea, vomiting, sweating or radiation of the pain. He associates this pain to the spasms that he has been having. However, he wanted to make sure that nothing serious was happening. He was given nitroglycerin by his , which partially relieved his pain. After coming to the hospital. He was treated with Nitropaste and hasn't had any recurrence of pain. At this point patient is stable. His cardiac enzymes are negative. His EKG did not reveal any acute changes. Patient wants to go home and be evaluated by his manager country. Patient could be discharged home and see his manager country as an outpatient. Review of Systems As per the chart Past Medical History Past Medical History: Myocardial Infarction ([place]) Additional Past Medical History / Comment(s): STEMI 2019 Last Myocardial Infarction Date:: 10/02/2018 History of Any Multi-Drug Resistant Organisms: None Reported Past Surgical History: Heart Catheterization With Stent Additional Past Surgical History / Comment(s): right eye surgery, 7 cardiac stents, Past Anesthesia/Blood Transfusion Reactions: No Reported Reaction Date of Last Stent Placement:: 09/27/2018 Past Psychological History: ADD/ADHD Smoking Status: Former smoker Past Alcohol Use History: Rare Past Drug Use History: None Reported - Past Family History Father Family Medical History: Cancer Additional Family Medical History / Comment(s): pancreatic cancer Mother Family Medical History: Cancer Additional Family Medical History / Comment(s): breast cancer, her father had colon cancer Medications and Allergies Home Medications Medication Instructions Recorded Confirmed Type Methylphenidate HCl [Ritalin] 10 mg PO TID 10/02/18 07/15/20 History Metoprolol Tartrate [Lopressor] 12.5 mg PO DAILY 12/01/18 07/15/20 History lisinopriL [Zestril] 5 mg PO DAILY 12/01/18 07/15/20 History Nitroglycerin Sl Tabs [Nitrostat] 0.4 mg SUBLINGUAL Q5M PRN #25 tab 09/19/19 07/15/20 Rx amLODIPine [Norvasc] 2.5 mg PO DAILY #30 tab 03/25/20 07/15/20 Rx Atorvastatin [Lipitor] 80 mg PO DAILY 07/15/20 07/15/20 History Isosorbide Mononitrate ER [Imdur] 15 mg PO DAILY 07/15/20 07/15/20 History Prasugrel [Effient] 10 mg PO DAILY 07/15/20 07/15/20 History traZODone HCL 100 mg PO HS 07/15/20 07/15/20 History Allergies Allergy/AdvReac Type Severity Reaction Status Date / Time No Known Allergies Allergy Verified 07/15/20 20:11 Physical Exam Vitals: Vital Signs Temp Pulse Pulse Resp BP BP Pulse Ox 07/16/20 04:00 97.9 F 75 16 108/54 93 L 07/16/20 00:20 98.4 F 73 15 105/70 97 07/15/20 23:03 97.8 F 75 16 100/69 99 07/15/20 22:02 71 18 102/74 96 07/15/20 20:51 70 18 116/65 100 07/15/20 20:00 98.0 F 79 18 128/101 96 Intake and Output 07/15/20 07/16/20 07/16/20 22:59 06:59 14:59 Other: # Voids 1 Weight 74.843 kg 74.843 kg GENERAL EXAM: Patient is alert and oriented and doesn't appear to be in any acute distress HEENT: Normocephalic. Normal reaction of pupils, equal size, normal range of extraocular motion. No erythema or exudates in the throat. NECK: No masses, no nuchal rigidity. CHEST: No chest wall deformity. LUNGS: Equal air entry with no crackles or wheeze. HEART: S1 and S2 normal with no audible mumurs or gallops. Regular rhythm, femorals equal on both sides.. ABDOMEN: No hepatosplenomegaly, normal bowel sounds, no guarding or rigidity. SKIN: No rashes CENTRAL NERVOUS SYSTEM: No focal deficits. EXTREMITIES: No cyanosis, clubbing or edema. Results 07/15/20 20:12 07/15/20 20:12 Cardiac Enzymes 07/15/20 07/15/20 07/15/20 Range/Units 20:12 20:12 22:54 AST 33 (17-59) U/L Troponin I <0.012 <0.012 (0.000-0.034) ng/mL 07/16/20 Range/Units 01:59 AST (17-59) U/L Troponin I <0.012 (0.000-0.034) ng/mL Coagulation 07/15/20 07/16/20 07/16/20 Range/Units 20:12 01:11 06:05 PT 9.7 10.6 (9.0-12.0) sec APTT 22.5 38.5 H (22.0-30.0) sec Lipids 07/15/20 Range/Units 20:12 Triglycerides 236 H (<150) mg/dL Cholesterol 148 (<200) mg/dL HDL Cholesterol 41 (40-60) mg/dL CBC 07/15/20 Range/Units 20:12 WBC 7.9 (3.8-10.6) k/uL RBC 4.63 (4.30-5.90) m/uL Hgb 14.7 (13.0-17.5) gm/dL Hct 45.1 (39.0-53.0) % Plt Count 241 (150-450) k/uL Comprehensive Metabolic Panel 07/15/20 Range/Units 20:12 Sodium 141 (137-145) mmol/L Potassium 4.1 (3.5-5.1) mmol/L Chloride 108 H (98-107) mmol/L Carbon Dioxide 18 L (22-30) mmol/L BUN 12 (9-20) mg/dL Creatinine 1.19 (0.66-1.25) mg/dL Glucose 112 H (74-99) mg/dL Calcium 9.3 (8.4-10.2) mg/dL AST 33 (17-59) U/L ALT 29 (4-49) U/L Alkaline Phosphatase 50 (38-126) U/L Total Protein 7.1 (6.3-8.2) g/dL Albumin 4.1 (3.5-5.0) g/dL Current Medications Generic Name Dose Route Start Last Admin Trade Name Freq PRN Reason Stop Dose Admin Amlodipine Besylate 2.5 mg 07/16/20 09:00 07/16/20 08:53 Amlodipine 2.5 Mg Tab PO 2.5 mg DAILY CURTIS Administration Aspirin 81 mg 07/16/20 09:00 07/16/20 08:59 Aspirin 81 Mg PO 81 mg DAILY CURTIS Administration Atorvastatin Calcium 80 mg 07/16/20 09:00 07/16/20 08:53 Atorvastatin 80 Mg Tab PO 80 mg DAILY CURTIS Administration Heparin Sodium (Porcine) 0 unit 07/16/20 00:29 Heparin Sodium,Porcine 5,000 Unit/Ml 1 Ml Vial IV PER PROTOCOL PRN Low PTT Protocol Isosorbide Mononitrate 15 mg 07/16/20 09:00 07/16/20 08:53 Isosorbide Mononitrate Er 30 Mg Tab.Er.24h PO 15 mg DAILY CURTIS Administration Lisinopril 5 mg 07/16/20 09:00 07/16/20 08:52 Lisinopril 5 Mg Tab PO 5 mg DAILY CURTIS Administration Metoprolol Tartrate 12.5 mg 07/16/20 09:00 07/16/20 08:53 Metoprolol Tartrate 12.5 Mg Tab PO 12.5 mg DAILY CURTIS Administration Nitroglycerin 0.4 mg 07/15/20 21:51 Nitroglycerin Sl Tabs 0.4 Mg Tab SUBLINGUAL Q5M PRN Chest Pain Prasugrel 10 mg 07/16/20 09:00 07/16/20 08:53 Prasugrel 10 Mg Tab PO 10 mg DAILY CURTIS Administration Sodium Chloride 10 ml 07/16/20 09:00 07/16/20 08:54 Sodium Chloride 0.9% Flush 10 Ml Syringe IV 10 ml BID CURTIS Administration Trazodone HCl 100 mg 07/16/20 21:00 Trazodone Hcl 100 Mg Tab PO HS CURTIS Intake and Output 07/15/20 07/16/20 07/16/20 22:59 06:59 14:59 Other: # Voids 1 Weight 74.843 kg 74.843 kg 07/15/20 20:12 07/15/20 20:12 EKG Interpretations (text) Sinus rhythm without any acute changes Assessment and Plan (1) History of myocardial infarction Current Visit: Yes Status: Acute Code(s): I25.2 - OLD MYOCARDIAL INFARCTION SNOMED Code(s): 552476150 (2) Chest pain Current Visit: Yes Status: Acute Code(s): R07.9 - CHEST PAIN, UNSPECIFIED SNOMED Code(s): 77393773 (3) Hyperlipidemia Current Visit: Yes Status: Acute Code(s): E78.5 - HYPERLIPIDEMIA, UNSPECIFIED SNOMED Code(s): 73580377 (4) Nicotine dependence Current Visit: Yes Status: Acute Code(s): F17.200 - NICOTINE DEPENDENCE, UNSPECIFIED, UNCOMPLICATED SNOMED Code(s): 79926656 Plan: Patient is advised to quit smoking. He is advised to consider stress test here. Patient preferred to go home and have it as an outpatient. Patient could be discharged home and have follow-up with his own manager country.
--- NOTE | 2020-07-16 10:21 | P.DS ---
<Reagan Carrillo - Last Filed: 07/16/20 09:46> Providers Expected date of discharge: 07/16/20 Hospital Course: Discharge Diagnosis: CAD with Unstable angina secondary to suspected coronary vasospasms Elevated d-dimer, CT PE negative Hypertension Hyperlipidemia Former nicotine dependence on cigarettes, reports quit date 03/2020 Hospital Course: Patient is a 60-year-old male with a past medical history including CAD with previous NJ and multiple stents on Effient, hypertension, hyperlipidemia, and former nicotine dependence quitting smoking approximately 4 months ago. Patient presented to [facility] on 07/15/20 with a chief complaint of chest pain accompanied by shortness of breath. Patient reports that he was at the [employer] and he had approximately 6 beers and 3 shots of liquor. Patient states he was standing by the bar when he had sudden onset pain to midsternal chest radiating into left anterior chest. Patient described this pain as "pressure". Patient states the pain was so severe he was only able to walk a couple of steps before he felt as if he was going to fall over secondary to the pain and feeling lightheaded, so he sat down on the ground and his called EMS for transport to the hospital. Patient states this pain lasted approximately 40 minutes and was relieved by nitro. He was admitted for unstable angina and started on heparin infusion. Patient has remained pain-free since initial administration of nitro upon arrival to Hospital and reports complete resolution of shortness of breath. EKG completed revealing normal sinus rhythm at 75 bpm showing no signs of acute ischemia with no noted T-wave or ST abnormalities. Troponins 3 were all negative at <0.012. Chest x-ray was negative for acute cardiopulmonary process. D-dimer was elevated at 10.30 and CTA chest was negative for PE. BMP and CBC revealing no significant abnormalities and Covid 19 PCR was negative. Patient was seen and evaluated by cardiology and cleared for discharge home. Patient medically clear at this time and educated on importance of sticking to a heart healthy diet, avoiding significant alcohol consumption, taking all medications as directed, and to be sure to follow-up as scheduled on Monday07/20/20 with room service food server Dr. Avery Miller. Ritalin was discontinued secondary to pt's significant cardiac history and risks for arrhythmia, if pt requires medication for ADHD I strongly recommend a non-stimulant medication. Cardiac history: 09/19/19: Patient underwent heart cath with stenting of circumflex. 10/06/19: Patient admitted as a STEMI and underwent cardiac ablation with additional stenting of circumflex. 03/24/20: Patient admitted for unstable angina and underwent cardiac cath revealing patent stents and coronary vasospasm with suspected and medications adjusted at that time. 03/24/20: Echocardiogram completed revealing a preserved EF of 55-60% with an aneurysmal interatrial septum. Physical examination: Patient seen and examined at bedside. Patient resting comfortably showing no signs of acute distress. He denies having any further episodes of chest pain or shortness of breath since admission. He also denies any other complaints including headache, lightheadedness, dizziness, changes in vision or hearing, cough or congestion, palpitations, dyspnea with exertion, nausea, vomiting, diaphoresis, or experiencing any pain/swelling/weakness/tingling/numbness in extremities. Vital signs reviewed and stable. General: Nontoxic, no distress and appears stated age. Derm: Skin warm and dry, normal coloration for ethnicity. Head: Atraumatic, normocephalic and symmetric. Eyes: EOMs intact, no lid lag, and anicteric sclera Mouth: no lip lesions, mucus membranes moist Cardiovascular: regular rate and rhythm with normal S1S2, no murmur, positive posterior tibial pulses bilaterally, and cap refill < 2 seconds. Lungs: Respirations even, regular, and unlabored on room air. Lungs CTA bilaterally, no rhonchi, no rales, no wheezing, and no accessory muscle usage. Abdominal: soft, nontender to palpation, no guarding, no appreciable organomegaly Ext: ROM intact. No gross muscle atrophy, no edema, no contractures Neuro: Speech clear, face symmetrical and CN II-XII grossly intact with no noted focal neuro deficits Psych: Alert and oriented to person, place, time, and situation. Appropriate and pleasant affect. A total of 45 minutes of time were spent preparing this complex discharge summary. Patient Condition at Discharge: Stable Plan - Discharge Summary New Discharge Prescriptions: New Aspirin 81 mg PO DAILY chew Continue Metoprolol Tartrate [Lopressor] 12.5 mg PO DAILY lisinopriL [Zestril] 5 mg PO DAILY Nitroglycerin Sl Tabs [Nitrostat] 0.4 mg SUBLINGUAL Q5M PRN #25 tab PRN Reason: Chest Pain amLODIPine [Norvasc] 2.5 mg PO DAILY #30 tab traZODone HCL 100 mg PO HS Prasugrel [Effient] 10 mg PO DAILY Isosorbide Mononitrate ER [Imdur] 15 mg PO DAILY Atorvastatin [Lipitor] 80 mg PO DAILY Discontinued Methylphenidate HCl [Ritalin] 10 mg PO TID Discharge Medication List Metoprolol Tartrate [Lopressor] 12.5 mg PO DAILY 12/01/18 [History] lisinopriL [Zestril] 5 mg PO DAILY 12/01/18 [History] Nitroglycerin Sl Tabs [Nitrostat] 0.4 mg SUBLINGUAL Q5M PRN #25 tab 09/19/19 [Rx] amLODIPine [Norvasc] 2.5 mg PO DAILY #30 tab 03/25/20 [Rx] Atorvastatin [Lipitor] 80 mg PO DAILY 07/15/20 [History] Isosorbide Mononitrate ER [Imdur] 15 mg PO DAILY 07/15/20 [History] Prasugrel [Effient] 10 mg PO DAILY 07/15/20 [History] traZODone HCL 100 mg PO HS 07/15/20 [History] Aspirin 81 mg PO DAILY chew 07/16/20 [Rx] Follow up Appointment(s)/Referral(s): Thalia Blanco MD [Primary Care Provider] - 1-2 days Patient Instructions/Handouts: Chest Pain (GEN) Activity/Diet/Wound Care/Special Instructions: Activity: As tolerated Diet: Heart healthy diet as we discussed Special Instructions: Avoid significant alcohol consumption. Take all of her medications as directed, never skip a dose. Be sure to follow-up as scheduled on Monday07/20/20 with room service food server Dr. Noble Miller at [facility]. Please bring your discharge paperwork with you to this appointment. Discharge Disposition: HOME SELF-CARE <Liz Conklin - Last Filed: 07/16/20 16:13> Providers Date of admission: 07/15/20 21:51 Attending physician: Adam Morris MD Consults: 07/15/20 21:51 Consult Physician Urgent Consulting Provider: Guilherme Pastrana Consult Reason/Comments: cp Do you want consulting provider notified?: Yes [facility]: I discussed the care with Reagan Carrillo NP and reviewed the findings and plan as documented in the note above. I did not staff this patient on this date.
[2020-07-16 10:42] VITALS: BP 122/64; PULSE 77; RESP 17; TEMP 98
[2020-07-16] MEDS ORDERED: traZODone HCL 100 MG TAB PO SCH (21:00)
== END 2020-07-16 11:19 | disposition home or self-care (01) ==
LOC: EC 19:59 → UNDOADMOB 21:51 → 6NMEDSUR 21:51
PROVIDERS: ADMIT Internal Medicine; ATTEND Internal Medicine
DX: R07.89 Other chest pain (principal); E78.5 Hyperlipidemia, unspecified; F17.200 Nicotine dependence, unspecified, uncomplicated; F90.9 Attention-deficit hyperactivity disorder, unspecified type; I10 Essential (primary) hypertension; I25.110 Atherosclerotic heart disease of native coronary artery with unstable angina pectoris; I25.2 Old myocardial infarction; Z79.02 Long term (current) use of antithrombotics/antiplatelets; Z79.899 Other long term (current) drug therapy; Z80.0 Family history of malignant neoplasm of digestive organs; Z80.3 Family history of malignant neoplasm of breast; Z95.5 Presence of coronary angioplasty implant and graft; Z20.822 Contact with and (suspected) exposure to COVID-19
CPT/HCPCS: 96374; 93005 ×2; 99285; 36415; 85379; 80061; 80053; 83735; 84484 ×2; 85025; 85610 ×2; 85730 ×2; 87635; 71046; 71275; G0378 ×2; J1644 ×2; Q9967

== ENCOUNTER 2021-05-28 13:13 | Observation (INO) | payer BC ==
--- NOTE | 2021-05-28 13:37 | ED ---
General Adult HPI - General Chief complaint: Chest Pain Stated complaint: Chest Pain Hx 7 stents Time Seen by Provider: 05/28/21 13:27 Source: patient, RN notes reviewed, old records reviewed Mode of arrival: wheelchair Limitations: no limitations - History of Present Illness Initial comments: 61 yo male presenting for evaluation of chest pain over the past 4 days. Patient has a known history of CAD status post stenting. He is on 2 antiplatelet medication. He has been compliant with his medication. He states that he's had some relief with nitroglycerin over the past several days. He denies any radiating symptoms. States that it stays in his substernal and left lower chest region. He had some associated diaphoresis without vomiting. No fe vanessa or chills. No cough. - Related Data Home Medications Medication Instructions Recorded Confirmed Metoprolol Tartrate [Lopressor] 12.5 mg PO DAILY 12/01/18 07/15/20 lisinopriL [Zestril] 5 mg PO DAILY 12/01/18 07/15/20 Atorvastatin [Lipitor] 80 mg PO DAILY 07/15/20 07/15/20 Isosorbide Mononitrate ER [Imdur] 15 mg PO DAILY 07/15/20 07/15/20 Prasugrel [Effient] 10 mg PO DAILY 07/15/20 07/15/20 traZODone HCL 100 mg PO HS 07/15/20 07/15/20 Previous Rx's Medication Instructions Recorded Nitroglycerin Sl Tabs [Nitrostat] 0.4 mg SUBLINGUAL Q5M PRN #25 tab 09/19/19 amLODIPine [Norvasc] 2.5 mg PO DAILY #30 tab 03/25/20 Aspirin 81 mg PO DAILY chew 07/16/20 Allergies Allergy/AdvReac Type Severity Reaction Status Date / Time No Known Allergies Allergy Verified 05/28/21 13:23 Review of Systems ROS Statement: Those systems with pertinent positive or pertinent negative responses have been documented in the HPI. ROS Other: All systems not noted in ROS Statement are negative. Past Medical History Past Medical History: Coronary Artery Disease (CAD), Chest Pain / Angina, Hypertension, Myocardial Infarction (SD) Additional Past Medical History / Comment(s): STEMI 2019 Last Myocardial Infarction Date:: 10/02/2018 History of Any Multi-Drug Resistant Organisms: None Reported Past Surgical History: Heart Catheterization With Stent Additional Past Surgical History / Comment(s): right eye surgery, 7 cardiac stents, Past Anesthesia/Blood Transfusion Reactions: No Reported Reaction Date of Last Stent Placement:: 09/27/2018 Past Psychological History: ADD/ADHD Smoking Status: Former smoker Past Alcohol Use History: Rare Past Drug Use History: None Reported - Past Family History Father Family Medical History: Cancer Additional Family Medical History / Comment(s): pancreatic cancer Mother Family Medical History: Cancer Additional Family Medical History / Comment(s): breast cancer, her father had colon cancer General Exam Limitations: no limitations General appearance: alert, in no apparent distress Head exam: Present: atraumatic, normocephalic Eye exam: Present: normal appearance, PERRL ENT exam: Present: normal exam Neck exam: Present: normal inspection. Absent: tenderness, meningismus Respiratory exam: Present: normal lung sounds bilaterally. Absent: respiratory distress, wheezes Cardiovascular Exam: Present: normal rhythm, bradycardia GI/Abdominal exam: Present: soft. Absent: distended, tenderness, guarding Extremities exam: Present: normal inspection, normal capillary refill. Absent: pedal edema, calf tenderness Neurological exam: Present: alert, oriented X3, CN II-XII intact. Absent: motor sensory deficit Psychiatric exam: Present: normal affect, normal mood Skin exam: Present: warm, dry, intact. Absent: cyanosis, diaphoretic Course Vital Signs 05/28/21 05/28/21 13:19 14:23 Temperature 98 F Pulse Rate 55 L 55 L Respiratory 16 18 Rate Blood Pressure 134/82 118/76 O2 Sat by Pulse 100 96 Oximetry EKG Findings - EKG Comments: EKG Findings:: EKG: Sinus bradycardia, rate of 49, MA interval 132, QRS duration 92, QTC 397, no ST segment elevation. Medical Decision Making - Medical Decision Making 61-year-old male history of CAD presenting with 4 days of intermittent chest pain. EKG sinus rhythm without ST segment elevation. Patient states this is very similar to previous episodes when he has required intervention. He's been compliant with his medications. Chest x-ray shows minimal atelectasis without other acute findings. He has normal CBC, normal CMP, negative initial troponin. Given the patient's risk factors he will be kept in observation for serial cardiac enzymes, telemetry, cardiology consultation. Case discussed with Aliyah ambrocio [facility] - Lab Data Result diagrams: 05/28/21 13:30 05/28/21 13:30 Lab Results 05/28/21 05/28/21 05/28/21 Range/Units 13:30 13:30 13:30 WBC 8.6 (3.8-10.6) k/uL RBC 4.83 (4.30-5.90) m/uL Hgb 15.6 (13.0-17.5) gm/dL Hct 46.9 (39.0-53.0) % MCV 97.0 (80.0-100.0) fL MCH 32.2 (25.0-35.0) pg MCHC 33.2 (31.0-37.0) g/dL RDW 12.8 (11.5-15.5) % Plt Count 247 (150-450) k/uL MPV 7.2 Neutrophils % 68 % Lymphocytes % 21 % Monocytes % 6 % Eosinophils % 3 % Basophils % 1 % Neutrophils # 5.8 (1.3-7.7) k/uL Lymphocytes # 1.8 (1.0-4.8) k/uL Monocytes # 0.5 (0-1.0) k/uL Eosinophils # 0.3 (0-0.7) k/uL Basophils # 0.1 (0-0.2) k/uL PT 9.8 (9.0-12.0) sec INR 0.9 (<1.2) APTT 23.0 (22.0-30.0) sec Sodium 138 (137-145) mmol/L Potassium 4.2 (3.5-5.1) mmol/L Chloride 104 (98-107) mmol/L Carbon Dioxide 29 (22-30) mmol/L Anion Gap 5 mmol/L BUN 18 (9-20) mg/dL Creatinine 1.28 H (0.66-1.25) mg/dL Est GFR (CKD-EPI)AfAm 70 (>60 ml/min/1.73 sqM) Est GFR (CKD-EPI)NonAf 61 (>60 ml/min/1.73 sqM) Glucose 107 H (74-99) mg/dL Calcium 10.3 H (8.4-10.2) mg/dL Magnesium 2.0 (1.6-2.3) mg/dL Total Bilirubin 0.6 (0.2-1.3) mg/dL AST 27 (17-59) U/L ALT 27 (4-49) U/L Alkaline Phosphatase 68 (38-126) U/L Troponin I (0.000-0.034) ng/mL Total Protein 7.2 (6.3-8.2) g/dL Albumin 4.2 (3.5-5.0) g/dL Coronavirus (PCR) (Not Detectd) 05/28/21 05/28/21 Range/Units 13:30 13:30 WBC (3.8-10.6) k/uL RBC (4.30-5.90) m/uL Hgb (13.0-17.5) gm/dL Hct (39.0-53.0) % MCV (80.0-100.0) fL MCH (25.0-35.0) pg MCHC (31.0-37.0) g/dL RDW (11.5-15.5) % Plt Count (150-450) k/uL MPV Neutrophils % % Lymphocytes % % Monocytes % % Eosinophils % % Basophils % % Neutrophils # (1.3-7.7) k/uL Lymphocytes # (1.0-4.8) k/uL Monocytes # (0-1.0) k/uL Eosinophils # (0-0.7) k/uL Basophils # (0-0.2) k/uL PT (9.0-12.0) sec INR (<1.2) APTT (22.0-30.0) sec Sodium (137-145) mmol/L Potassium (3.5-5.1) mmol/L Chloride (98-107) mmol/L Carbon Dioxide (22-30) mmol/L Anion Gap mmol/L BUN (9-20) mg/dL Creatinine (0.66-1.25) mg/dL Est GFR (CKD-EPI)AfAm (>60 ml/min/1.73 sqM) Est GFR (CKD-EPI)NonAf (>60 ml/min/1.73 sqM) Glucose (74-99) mg/dL Calcium (8.4-10.2) mg/dL Magnesium (1.6-2.3) mg/dL Total Bilirubin (0.2-1.3) mg/dL AST (17-59) U/L ALT (4-49) U/L Alkaline Phosphatase (38-126) U/L Troponin I <0.012 (0.000-0.034) ng/mL Total Protein (6.3-8.2) g/dL Albumin (3.5-5.0) g/dL Coronavirus (PCR) Not Detected (Not Detectd) Disposition Clinical Impression: Chest pain Disposition: ADMITTED IP TO THIS [facility] Condition: Stable Is patient prescribed a controlled substance at d/c from ED?: No Referrals: Nonstaff,Physician [Primary Care Provider] - 1-2 days Time of Disposition: 14:46 Decision to Admit Reason: Admit from EC Decision Date: 05/28/21 Decision Time: 14:46
--- NOTE | 2021-05-28 13:55 | XR ---
EXAMINATION TYPE: XR chest 2V DATE OF EXAM: 05/28/2021 COMPARISON: 07/15/2000 TECHNIQUE: PA and lateral views submitted. HISTORY: Chest pain FINDINGS: The lungs are clear and there is no pneumothorax, pleural effusion, or focal pneumonia. Subsegmental changes at the lung bases. Limited inspiration. Correlate for previous coronary artery stenting. Hyp ertrophic and degenerative change of the spine. Atherosclerotic change aorta. IMPRESSION: 1. Basilar atelectasis favored over pneumonia correlate clinically.
[2021-05-28 14:01] LABS: Basophils # (A) 0.1 k/uL (0-0.2); Basophils % (A) 1 %; Eosinophils # (A) 0.3 k/uL (0-0.7); Eosinophils % (A) 3 %; HCT 46.9 % (39.0-53.0); HGB 15.6 gm/dL (13.0-17.5); Lymphocytes # (A) 1.8 k/uL (1.0-4.8); Lymphocytes % (A) 21 %; MCH 32.2 pg (25.0-35.0); MCHC 33.2 g/dL (31.0-37.0); Mean Platelet Volume 7.2; Monocytes # (A) 0.5 k/uL (0-1.0); Monocytes % (A) 6 %; Neutrophils # (A) 5.8 k/uL (1.3-7.7); Neutrophils % (A) 68 %; Platelet Count 247 k/uL (150-450); RBC 4.83 m/uL (4.30-5.90); RDW 12.8 % (11.5-15.5); WBC 8.6 k/uL (3.8-10.6)
[2021-05-28 14:15] LABS: Albumin 4.2 g/dL (3.5-5.0); Calcium 10.3 mg/dL (8.4-10.2); Potassium 4.2 mmol/L (3.5-5.1); Total Bilirubin 0.6 mg/dL (0.2-1.3); Total Protein 7.2 g/dL (6.3-8.2)
[2021-05-28 14:24] LABS: INR 0.9 (<1.2); Prothrombin Time 9.8 sec (9.0-12.0)
[2021-05-28] MEDS ORDERED: NALOXONE 0.4 MG/ML 1 ML VIAL IV PRN (14:40)
[2021-05-28] MEDS ORDERED: MORPHINE SULFATE 4 MG/ML SYRINGE IV PRN (14:40)
[2021-05-28] MEDS ORDERED: ACETAMINOPHEN TAB 325 MG TAB PO PRN (14:40)
[2021-05-28] MEDS ORDERED: NITROGLYCERIN SL TABS 0.4 MG TAB SUBLINGUAL PRN (14:44)
[2021-05-28] MEDS ORDERED: ALBUTEROL NEBULIZED 2.5 MG/3 ML INHALATION PRN (18:46)
[2021-05-28] MEDS ORDERED: ALPRAZolam 0.25 MG TAB PO PRN (18:47)
[2021-05-28] MEDS ORDERED: TEMAZEPAM 15 MG CAP PO PRN (18:47)
--- NOTE | 2021-05-28 20:10 | HP ---
HISTORY AND PHYSICAL DATE OF SERVICE: 05/28/2021 CHIEF COMPLAINT: Chest pain. HISTORY OF PRESENT ILLNESS: This 62-year-old gentleman with a past medical history of CAD stent, history of hypertension, myocardial infarction, being followed by spooling supervisor in [facility] is complaining of chest pain. The patient has had chest pain for the last 3 or 4 days. The pain was felt in the midsternal area without any radiation, without any associated symptoms and the patient came to [facility] and admitted for further evaluation and treatment. The creatinine was found to be 1.28 and the initial troponins are negative. The initial EKG which I reviewed personally showed sinus bradycardia and nonspecific ST-T changes. Cardiology evaluation in progress. A chest x-ray was showing bibasilar atelectasis. There is no history of fever, rigors. No history of headache, loss of consciousness, seizures at this time. PAST MEDICAL HISTORY: History of CAD, stent, history of hypertension, history of myocardial infarction, history of STEMI. MEDICATIONS: Home medications are: Ritalin, Imdur, trazodone, Effient, Nitrostat, Lopressor, EpiPen, Lipitor, aspirin, Ventolin, Norvasc, doses reviewed. ALLERGIES: None. FAMILY HISTORY: History of pancreatic cancer in the family. SOCIAL HISTORY: Previous history of smoking, occasional alcohol intake. REVIEW OF SYSTEMS: ENT: No diminished vision. No diminished hearing. CARDIOVASCULAR: As mentioned earlier. RESPIRATORY: As mentioned earlier. GI: No nausea. : No dysuria. NERVOUS SYSTEM: No numbness or weakness. ALLERGY/IMMUNOLOGY: No asthma or hayfever. MUSCULOSKELETAL as mentioned earlier. HEMATOLOGY/ONCOLOGY: No history of anemia. ENDOCRINE: Negative. CONSTITUTIONAL: As mentioned earlier. RHEUMATOLOGY: Negative. DERMATOLOGY: Negative. PSYCHIATRIC: As mentioned earlier. PHYSICAL EXAMINATION: Patient is alert, oriented x3. The pulse is 50, blood pressure is 130/75. Respirations 18. Temperature normal. Pulse ox 98% on 2 L. HEENT: Conjunctivae normal. NECK: No JVD. CARDIOVASCULAR: S1, S2 muffled. RESPIRATIONS: Breath sounds diminished in the bases. No rhonchi. No crackles. ABDOMEN: Soft, nontender. No mass palpable. LEGS are no edema. No swelling. NERVOUS SYSTEM: Higher functions as mentioned earlier. Moves all four extremities. LYMPHATICS: No lymph nodes palpable in the neck, axillae or groin. SKIN: No ulcer. No rash and no bleeding. JOINTS: No active deforming arthropathy. LABS: CBC within normal limits. Otherwise, creatinine is 1.28. Glucose noted. Calcium noted. ASSESSMENT: 1. Chest pain, possible unstable angina. 2. Elevated creatinine with possibly chronic kidney stage 3. 3. History of coronary artery disease, stent. 4. Hypertension. 5. History of myocardial infarction. 7. History of nicotine dependence. 8. FULL CODE. RECOMMENDATIONS AND DISCUSSION: This 61-year-old gentleman who presented with multiple complex medical issues, we will monitor the patient closely. Rule out myocardial infarction. Unstable angina protocol. Cardiology consultation. Guarded prognosis because of multiple complex medical issues. Further recommendations to follow and home medications will be resumed. See orders for details. I would also recommend a D-dimer. MMODL / IJN: [id number] / MTDD
[2021-05-28] MEDS ORDERED: traZODone HCL 100 MG TAB PO SCH (21:00)
[2021-05-29] MEDS: METHYLPHENIDATE HCL 10 MG TAB PO SCH ×2 (08:49→13:26)
[2021-05-29] MEDS ORDERED: ISOSORBIDE MONONITRATE ER 60 MG TAB.ER.24H PO SCH (09:00)
[2021-05-29] MEDS ORDERED: ASPIRIN 81 MG PO SCH (09:00)
[2021-05-29] MEDS ORDERED: ATORVASTATIN 80 MG TAB PO SCH (09:00)
[2021-05-29] MEDS ORDERED: amLODIPine 2.5 MG TAB PO SCH (09:00)
[2021-05-29] MEDS ORDERED: PRASUGREL 10 MG TAB PO SCH (09:00)
[2021-05-29] MEDS ORDERED: METOPROLOL TARTRATE 12.5 MG TAB PO SCH (09:00)
[2021-05-29 09:23] LABS: Basophils # (A) 0.07 X 10*3/uL (0.00-0.10); Basophils % (A) 0.9 %; Eosinophils # (A) 0.32 X 10*3/uL (0.04-0.35); Eosinophils % (A) 4.3 %; HCT 44.1 % (39.6-50.0); HGB 14.1 g/dL (13.0-17.0); Lymphocytes # (A) 2.22 X 10*3/uL (0.90-5.00); Lymphocytes % (A) 30.1 %; MCH 30.9 pg (27.0-32.0); MCV 96.5 fL (80.0-97.0); Mean Platelet Volume 9.4 fL (9.5-12.2); Monocytes # (A) 0.74 X 10*3/uL (0.20-1.00); Neutrophils # (A) 4.02 X 10*3/uL (1.80-7.70); Neutrophils % (A) 54.6 %; Platelet Count 202 X 10*3/uL (140-440); RBC 4.57 X 10*6/uL (4.40-5.60); RDW 13.4 % (11.5-14.5); WBC 7.38 X 10*3/uL (4.50-10.00)
[2021-05-29 10:12] LABS: African American GFR (CKD) 68.7 (60.0-200.0); Anion Gap 11.6 mmol/L (10.00-18.00); BUN/Creat Ratio 10.69 Ratio (12.00-20.00); Blood Urea Nitrogen 13.9 mg/dL (9.0-27.0); Calcium 9.1 mg/dL (8.7-10.3); Carbon Dioxide 23.4 mmol/L (20.0-27.5); Non-African American GFR(CKD) 59.3 (60.0-200.0); Potassium 3.8 mmol/L (3.5-5.5)
[2021-05-29 10:52] VITALS: TEMP 97.5
[2021-05-29 13:26] VITALS: BP 125/65; PULSE 66; RESP 16
--- NOTE | 2021-05-29 14:03 | P.CRDCN ---
History of Present Illness Consult date: 05/29/21 Requesting physician: Mil Hodge Reason for Consult (text): chest pain Chief complaint: chest pain History of present illness: This is a pleasant 61-year-old gentleman who follows with Dr. Sparks. He has a known history of myocardial infarction with stenting of the OM in September 2018, subsequent to that patient underwent angioplasty and stenting of the OM in September 2019 and again underwent cardiac catheterization in March 2020 which showed patent stent in the OM with some evidence of possible spasm in the RCA, history of hyperlipidemia, prior nicotine dependence, quit about a year ago however still smokes one to 2 cigarettes per week. Presented to the hospital with complaints of mostly a bubble like sensation in the epigastric/lower sternal area which she feels is similar to what he experienced with his prior events however does not have the shortness of breath or tingling in his arms that he experienced at those times. He's been experiencing this over the last 5 days or so has been in contact with his primary flow nurse and is scheduled in the middle of next week for a stress test. He felt that yesterday when he was driving home from work the pain was worse and felt it necessary to come in for further evaluation to rule out AZ. He's also been getting pain in the left chest separate from the bubble sensation he gets that is random in occurrence not related to activity and separate from his main complaint. The feeling of a bubble in his chest is quite constant with mostly relieved through the night when he wakes up he feels okay and throughout the day the pain absent flows he believes he may have gotten some relief with nitroglycerin but is not sure. Laboratory values on admission showed troponins negative 3. EKG showed no evidence of ischemia. At the time of my exam he sitting up in bed eating breakfast with some complaints of discomfort that he describes as a bubble. He does have some tenderness noted to palpation of the epigastric area. Medicat ions at home include isosorbide 120 mg by mouth daily, Effient 10 mg by mouth daily, metoprolol tartrate 25 mg by mouth twice a day, Lipitor 80 mg by mouth daily at bedtime, aspirin 81 mg daily, amlodipine 2.5 mg by mouth daily, trazodone daily at bedtime and Ritalin 10 mg by mouth 3 times a day. Past Medical History Past Medical History: Coronary Artery Disease (CAD), Chest Pain / Angina, Hypertension, Myocardial Infarction (AZ) Additional Past Medical History / Comment(s): STEMI 2019 Last Myocardial Infarction Date:: 10/02/2018 History of Any Multi-Drug Resistant Organisms: None Reported Past Surgical History: Heart Catheterization With Stent Additional Past Surgical History / Comment(s): right eye surgery, 7 cardiac stents, Past Anesthesia/Blood Transfusion Reactions: No Reported Reaction Date of Last Stent Placement:: 09/27/2018 Past Psychological History: ADD/ADHD Smoking Status: Former smoker Past Alcohol Use History: Rare Additional Past Alcohol Use History / Comment(s): drinks socially Past Drug Use History: None Reported Additional Drug Use History / Comment(s): goes through 2 packs of cigarettes per week - Past Family History Father Family Medical History: Cancer Additional Family Medical History / Comment(s): pancreatic cancer Mother Family Medical History: Cancer Additional Family Medical History / Comment(s): breast cancer, her father had colon cancer Medications and Allergies Home Medications Medication Instructions Recorded Confirmed Type Nitroglycerin Sl Tabs [Nitrostat] 0.4 mg SUBLINGUAL Q5M PRN #25 tab 09/19/19 05/28/21 Rx amLODIPine [Norvasc] 2.5 mg PO DAILY #30 tab 03/25/20 05/28/21 Rx Atorvastatin [Lipitor] 80 mg PO HS 07/15/20 05/28/21 History Prasugrel [Effient] 10 mg PO DAILY 07/15/20 05/28/21 History traZODone HCL 100 mg PO HS 07/15/20 05/28/21 History Aspirin 81 mg PO DAILY chew 07/16/20 05/28/21 Rx Albuterol Inhaler [Ventolin Hfa 2 puff INHALATION RT-Q4H PRN 05/28/21 05/28/21 History Inhaler] EPINEPHrine (Auto Inject) [Epipen] 0.3 mg IM ONCE PRN 05/28/21 05/28/21 History Isosorbide Mononitrate [Imdur] 120 mg PO DAILY 05/28/21 05/28/21 History Methylphenidate HCl [Ritalin] 10 mg PO TID 05/28/21 05/28/21 History Acetaminophen Tab [Tylenol] 650 mg PO Q6HR PRN tab 05/29/21 Rx Metoprolol Tartrate [Lopressor] 12.5 mg PO DAILY 30 Days #30 tab 05/29/21 Rx Allergies Allergy/AdvReac Type Severity Reaction Status Date / Time No Known Allergies Allergy Verified 05/28/21 15:09 Physical Exam Vitals: Vital Signs Temp Pulse Pulse Resp BP BP Pulse Ox 05/29/21 01:37 98.2 F 82 18 93/49 97 05/28/21 21:36 97.9 F 59 L 20 125/69 97 05/28/21 19:00 55 L 18 124/73 96 05/28/21 18:00 55 L 18 123/78 96 05/28/21 17:00 55 L 18 123/82 96 05/28/21 16:47 50 L 18 113/75 99 05/28/21 16:00 117/75 05/28/21 15:00 55 L 18 115/74 96 05/28/21 14:23 55 L 18 118/76 96 05/28/21 13:19 98 F 55 L 16 134/82 100 Intake and Output 05/28/21 05/29/21 05/29/21 22:59 06:59 14:59 Other: # Voids 0 1 Weight 77.111 kg PHYSICAL EXAMINATION: This is a 61-year-old male in no apparent distress at the time of my examination. VITAL SIGNS: Blood pressure 93/49, heart rate 82, respirations 18, temp 98.2F. Patient is 97 % on room air. HEENT: Head is atraumatic, normocephalic. Pupils are equal, round. Sclerae anicteric. Conjunctivae are clear. Mucous membranes of the mouth are moist. Neck is supple. There is no elevated jugular venous pressure. No carotid bruit is heard. CHEST EXAMINATION: Clear to auscultation bilaterally. No wheezes rales or rhonc hi. Respirations even and nonlabored. HEART EXAMINATION: Heart regular, positive S1 and S2. No S3. No S4. No clicks, rubs or murmurs. ABDOMEN: Soft, epigastric tenderness to palpation. Bowel sounds are heard. No organomegaly noted. EXTREMITIES: 2+ peripheral pulses with no evidence of peripheral edema and no calf tenderness noted. NEUROLOGIC EXAMINATION: Patient is awake, alert and oriented x3. Results 05/29/21 04:37 05/29/21 04:37 Cardiac Enzymes 05/28/21 05/28/2121 Range/Units 13:30 13:30 15:28 AST 27 (17-59) U/L Troponin I <0.012 <0.012 (0.000-0.034) ng/mL 05/28/21 Range/Units 18:31 AST (17-59) U/L Troponin I <0.012 (0.000-0.034) ng/mL Coagulation 05/28/21 Range/Units 13:30 PT 9.8 (9.0-12.0) sec APTT 23.0 (22.0-30.0) sec CBC 05/28/21 05/29/21 Range/Units 13:30 04:37 WBC 8.6 7.38 (3.8-10.6) k/uL RBC 4.83 4.57 (4.30-5.90) m/uL Hgb 15.6 14.1 (13.0-17.5) gm/dL Hct 46.9 44.1 (39.0-53.0) % Plt Count 247 202 (150-450) k/uL Comprehensive Metabolic Panel 05/28/21 Range/Units 13:30 Sodium 138 (137-145) mmol/L Potassium 4.2 (3.5-5.1) mmol/L Chloride 104 (98-107) mmol/L Carbon Dioxide 29 (22-30) mmol/L BUN 18 (9-20) mg/dL Creatinine 1.28 H (0.66-1.25) mg/dL Glucose 107 H (74-99) mg/dL Calcium 10.3 H (8.4-10.2) mg/dL AST 27 (17-59) U/L ALT 27 (4-49) U/L Alkaline Phosphatase 68 (38-126) U/L Total Protein 7.2 (6.3-8.2) g/dL Albumin 4.2 (3.5-5.0) g/dL Current Medications Generic Name Dose Route Start Last Admin Trade Name Freq PRN Reason Stop Dose Admin Acetaminophen 650 mg 05/28/21 14:40 Acetaminophen Tab 325 Mg Tab PO Q6HR PRN Mild Pain or Fever > 100.5 Albuterol Sulfate 2.5 mg 05/28/21 18:46 Albuterol Nebulized 2.5 Mg/3 Ml INHALATION RT-Q4H PRN Shortness Of Breath Alprazolam 0.25 mg 05/28/21 18:47 Alprazolam 0.25 Mg Tab PO TID PRN Anxiety Amlodipine Besylate 2.5 mg 05/29/21 09:00 05/29/21 08:49 Amlodipine 2.5 Mg Tab PO 2.5 mg DAILY CURTIS Administration Aspirin 81 mg 05/29/21 09:00 05/29/21 08:48 Aspirin 81 Mg PO 81 mg DAILY CURTIS Administration Atorvastatin Calcium 80 mg 05/29/21 09:00 05/29/21 08:48 Atorvastatin 80 Mg Tab PO 80 mg DAILY CURTIS Administration Isosorbide Mononitrate 120 mg 05/29/21 09:00 05/29/21 08:49 Isosorbide Mononitrate Er 60 Mg Tab.Er.24h PO 120 mg DAILY CURTIS Administration Methylphenidate HCl 10 mg 05/29/21 07:30 05/29/21 08:49 Methylphenidate Hcl 10 Mg Tab PO 10 mg AC-TID CURTIS Administration Metoprolol Tartrate 12.5 mg 05/29/21 09:00 Metoprolol Tartrate 12.5 Mg Tab PO DAILY [facility] Morphine Sulfate 4 mg 05/28/21 14:40 Morphine Sulfate 4 Mg/Ml Syringe IV Q4HR PRN Severe Pain Naloxone HCl 0.2 mg 05/28/21 14:40 Naloxone 0.4 Mg/Ml 1 Ml Vial IV Q2M PRN Opioid Reversal Nitroglycerin 0.4 mg 05/28/21 14:44 Nitroglycerin Sl Tabs 0.4 Mg Tab SUBLINGUAL Q5M PRN Chest Pain Prasugrel 10 mg 05/29/21 09:00 Prasugrel 10 Mg Tab PO DAILY [facility] Temazepam 15 mg 05/28/21 18:47 Temazepam 15 Mg Cap PO HS PRN Insomnia Trazodone HCl 100 mg 05/28/21 21:00 05/28/21 22:15 Trazodone Hcl 100 Mg Tab PO 100 mg HS CURTIS Administration Intake and Output 05/28/21 05/29/21 05/29/21 22:59 06:59 14:59 Other: # Voids 0 1 Weight 77.111 kg 05/29/21 04:37 05/28/21 13:30 EKG Interpretations (text) Sinus bradycardia Assessment and Plan Assessment: #1 chest discomfort, acute coronary event has been ruled out, troponins negative 3, no ischemic changes noted on EKG #2 history of AZ with stenting 2 to the OM and evidence of RCA spasm in the past #3 hyperlipidemia #4 nicotine dependence Plan: From cardiology's perspective and acute coronary event has been ruled out. We will obtain a 2-D echo with Doppler study to assess cardiac structure and funct ion. If there are no significant abnormalities noted on echocardiogram patient to be discharged home and follow-up with his regular flow nurse as scheduled. M[employer] DEVELOPER note has been reviewed, I agree with a documented findings and plan of care. Patient was seen and examined.
--- NOTE | 2021-05-29 14:31 | ECHOF ---
Referral Reason:chest pain MEASUREMENTS -------- HEIGHT: 170.2 cm WEIGHT: 77.1 kg BP: RVIDd: 3.0 cm (< 3.3) IVSd: 0.8 cm (0.6 - 1.1) LVIDd: 4.5 cm (3.9 - 5.3) LVPWd: 1.4 cm (0.6 - 1.1) IVSs: 1.3 cm LVIDs: 2.4 cm LVPWs: 1.5 cm LA Diam: 3.6 cm (2.7 - 3.8) LAESV Index (A-L): 21.42 ml/m Ao Diam: 3.1 cm (2.0 - 3.7) AV Cusp: 2.0 cm (1.5 - 2.6) LA Diam: 3.5 cm (2.7 - 3.8) MV EXCURSION: 17.703 mm (> 18.000) MV EF SLOPE: 53 mm/s (70 - 150) EPSS: 0.8 cm MV E Uastin: 0.59 m/s MV DecT: 236 ms MV A Austin: 0.83 m/s MV E/A Ratio: 0.71 RAP: 5.00 mmHg RVSP: 11.33 mmHg FINDINGS -------- Sinus rhythm. This was a technically adequate study. The left ventricular size is normal. There is mild concentric left ventricular hypertrophy. Overa ll left ventricular systolic function is normal with, an EF between 55 - 60 %. The right ventricle is normal in size. Normal LA size by volume 22+/-6 ml/m2. The right atrial size is normal. Aneurysmal Interatrial septum. The aortic valve is trileaflet, and appears structurally normal. No aortic stenosis or regurgitation. The mitral valve is normal. Mild mitral regurgitation is present. The tricuspid valve appears structurally normal. Trace tricuspid regurgitation present. Right geoffrey tricular systolic pressure is normal at < 35 mmHg. There is no pulmonic regurgitation present. The aortic root size is normal. There is no pericardial effusion. CONCLUSIONS -------- 1. There is mild concentric left ventricular hypertrophy. 2. Overall left ventricular systolic function is normal with, an EF between 55 - 60 %. 3. Normal LA size by volume 22+/-6 ml/m2. 4. The aortic valve is trileaflet, and appears structurally normal. No aortic stenosis or regurgitati on. 5. Mild mitral regurgitation is present. 6. Trace tricuspid regurgitation present. SET MAKING MACHINE OPERATOR: Tiki Wynne RDCS
--- NOTE | 2021-06-04 00:09 | P.DS ---
Providers Date of admission: 05/28/21 14:40 Expected date of discharge: 05/29/21 Attending physician: Mil Hodge Consults: 05/28/21 14:40 Consult Physician Routine Consulting Provider: Nahum Pichardo Consult Reason/Comments: CP rule out Do you want consulting provider notified?: Yes Primary care physician: Noble Sparks [facility] Course: Final diagnosis chest pain, possible unstable angina elevated creatinine with possible chronic kidney disease stage 3 hypertension history of myocardial infarction History of nicotine dependence full code Discharge disposition Patient is being discharged in a stable condition with guarded prognosis to home. Patient will follow-up with Dr. Sparks in the outpatient setting upon discharge. Patient is to follow up with his [employer] out of [place] as scheduled. Total time taken is greater than 35 minutes. Hospital course This is a 61 year-old male who was recently admitted with chest pain and was being closely monitored. Cardiology evaluated the patient and underwent 2d echo with an EF of 55-60% and patient will follow up with his pcp and cardiology out of [place] to discuss further about outpatient stress test. Patient requesting discharge. Currently no reports of chest pain, shortness of breath, or palpitations. Patient is afebrile. No reports of nausea or vomiting and patient is tolerating diet. Patient will be discharged home today. On exam vital signs are stable. Cardio S1, S2 are muffled. Respiratory system shows diminished breath sounds at the bases with no wheezing or rhonchi noted. Abdomen is soft and nontender. Nervous system shows no focal deficits. Please refer to medication reconciliation sheet for a list of medications. Patient Condition at Discharge: Stable Plan - Discharge Summary Discharge Rx Participant: No New Discharge Prescriptions: New Acetaminophen Tab [Tylenol] 650 mg PO Q6HR PRN tab PRN Reason: Mild Pain Or Fever > 100.5 Metoprolol Tartrate [Lopressor] 12.5 mg PO DAILY 30 Days #30 tab Continue Nitroglycerin Sl Tabs [Nitrostat] 0.4 mg SUBLINGUAL Q5M PRN #25 tab PRN Reason: Chest Pain amLODIPine [Norvasc] 2.5 mg PO DAILY #30 tab traZODone HCL 100 mg PO HS Prasugrel [Effient] 10 mg PO DAILY Atorvastatin [Lipitor] 80 mg PO HS Aspirin 81 mg PO DAILY chew EPINEPHrine (Auto Inject) [Epipen] 0.3 mg IM ONCE PRN PRN Reason: Anaphylaxis Albuterol Inhaler [Ventolin Hfa Inhaler] 2 puff INHALATION RT-Q4H PRN PRN Reason: Shortness Of Breath Methylphenidate HCl [Ritalin] 10 mg PO TID Isosorbide Mononitrate [Imdur] 120 mg PO DAILY Discontinued Metoprolol Tartrate [Lopressor] 25 mg PO BID Discharge Medication List Nitroglycerin Sl Tabs [Nitrostat] 0.4 mg SUBLINGUAL Q5M PRN #25 tab 09/19/19 [Rx] amLODIPine [Norvasc] 2.5 mg PO DAILY #30 tab 03/25/20 [Rx] Atorvastatin [Lipitor] 80 mg PO HS 07/15/20 [History] Prasugrel [Effient] 10 mg PO DAILY 07/15/20 [History] traZODone HCL 100 mg PO HS 07/15/20 [History] Aspirin 81 mg PO DAILY chew 07/16/20 [Rx] Albuterol Inhaler [Ventolin Hfa Inhaler] 2 puff INHALATION RT-Q4H PRN 05/28/21 [History] EPINEPHrine (Auto Inject) [Epipen] 0.3 mg IM ONCE PRN 05/28/21 [History] Isosorbide Mononitrate [Imdur] 120 mg PO DAILY 05/28/21 [History] Methylphenidate HCl [Ritalin] 10 mg PO TID 05/28/21 [History] Acetaminophen Tab [Tylenol] 650 mg PO Q6HR PRN tab 05/29/21 [Rx] Metoprolol Tartrate [Lopressor] 12.5 mg PO DAILY 30 Days #30 tab 05/29/21 [Rx] Follow up Appointment(s)/Referral(s): Nonstaff,Physician [REFERRING] - 1-2 days Patient Instructions/Handouts: Chest Pain (DC) Activity/Diet/Wound Care/Special Instructions: Activity Limited until follow-up Follow-up with primary care provider on discharge Follow-up cardiology outpatient Continue taking medications as prescribed Note The changes in dosage of beta festus Continue heart healthy diet Discharge Disposition: HOME SELF-CARE
== END 2021-05-29 15:43 | disposition home or self-care (01) ==
LOC: EC 13:13 → 1SOBS 14:40 → 6NMEDSUR 17:38
PROVIDERS: ADMIT Hospitalist; ATTEND Hospitalist
DX: R07.2 Precordial pain (principal); R61 Generalized hyperhidrosis; R79.89 Other specified abnormal findings of blood chemistry; R00.1 Bradycardia, unspecified; J98.11 Atelectasis; I25.10 Atherosclerotic heart disease of native coronary artery without angina pectoris; I10 Essential (primary) hypertension; I25.2 Old myocardial infarction; E78.5 Hyperlipidemia, unspecified; F90.9 Attention-deficit hyperactivity disorder, unspecified type; I34.0 Nonrheumatic mitral (valve) insufficiency; F17.210 Nicotine dependence, cigarettes, uncomplicated; Z20.822 Contact with and (suspected) exposure to COVID-19; Z95.5 Presence of coronary angioplasty implant and graft; Z79.899 Other long term (current) drug therapy; Z79.82 Long term (current) use of aspirin; Z79.02 Long term (current) use of antithrombotics/antiplatelets; Z80.0 Family history of malignant neoplasm of digestive organs; Z80.3 Family history of malignant neoplasm of breast
CPT/HCPCS: 99285; 36415; 93005; 93306; 85379; 80053; 80048; 83735; 84484; 85025 ×2; 85610; 85730; 87635; 71046; G0378 ×3

== ENCOUNTER 2023-03-12 17:28 | Emergency (ER) | payer BC ==
[2023-03-12 17:45] VITALS: RESP 16
[2023-03-12] MEDS ORDERED: SODIUM CHLORIDE 0.9% 1,000 ML IV STA (17:52)
[2023-03-12] MEDS ORDERED: ONDANSETRON 4 MG/2 ML VIAL IVP STA (17:52)
[2023-03-12] MEDS ORDERED: PANTOPRAZOLE 40 MG/10 ML VIAL IVP STA (17:52)
[2023-03-12] MEDS ORDERED: KETOROLAC 15 MG/ML 1 ML VIAL IVP STA (18:25)
[2023-03-12 18:35] LABS: Basophils # (A) 0.1 k/uL (0-0.2); Basophils % (A) 1 %; Eosinophils # (A) 0.4 k/uL (0-0.7); Eosinophils % (A) 5 %; HCT 45.3 % (39.0-53.0); HGB 15.1 gm/dL (13.0-17.5); Lymphocytes # (A) 1.8 k/uL (1.0-4.8); Lymphocytes % (A) 22 %; MCH 31.2 pg (25.0-35.0); MCHC 33.3 g/dL (31.0-37.0); MCV 93.8 fL (80.0-100.0); Mean Platelet Volume 7.5; Monocytes # (A) 0.5 k/uL (0-1.0); Monocytes % (A) 7 %; Neutrophils % (A) 63 %; Platelet Count 254 k/uL (150-450); RBC 4.83 m/uL (4.30-5.90); RDW 13.6 % (11.5-15.5)
[2023-03-12 18:48] LABS: ALT 33 U/L (4-49); AST 26 U/L (17-59); African American GFR (CKD) 67 (>60 ml/min/1.73 sqM); Albumin 4.2 g/dL (3.5-5.0); Alkaline Phosphatase 80 U/L (38-126); Amylase 63 U/L (30-110); Anion Gap 10 mmol/L; Blood Urea Nitrogen 14 mg/dL (9-20); Calcium 9.8 mg/dL (8.4-10.2); Carbon Dioxide 22 mmol/L (22-30); Chloride 106 mmol/L (98-107); Glucose 90 mg/dL (74-99); Lipase 189 U/L (23-300); Non-African American GFR(CKD) 58 (>60 ml/min/1.73 sqM); Potassium 4.1 mmol/L (3.5-5.1); Sodium 138 mmol/L (137-145); Total Bilirubin 0.4 mg/dL (0.2-1.3); Total Protein 7.2 g/dL (6.3-8.2)
--- NOTE | 2023-03-12 19:07 | US ---
EXAMINATION TYPE: US gallbladder DATE OF EXAM: 03/12/2023 COMPARISON: CT Chest 07/15/2020 CLINICAL INDICATION: Male, 62 years old with history of pain; Pt states "Stomach pains" TECHNIQUE: Multiple sonographic images of the right upper quadrant are obtained. FINDINGS: EXAM MEASUREMENTS: Liver Length: 17.2 cm Gallbladder Wall: 0.3 cm, the gallbladder appears mostly contracted. CBD: 0.2 cm Pancreas: Body appears within normal limits, head and tail are obscured by bowel gas. Right Kidney: 10.5 x 4.7 x 4.9 cm, with no hydronephrosis seen. DRAGLINE OILER NOTES: Pancreas: Body wnl, head and tail gassed out Liver: wnl Gallbladder: Contracted- pt states he is NPO Evidence for sonographic Patel's sign: No CBD: wnl Right Kidney: No evidence of hydro IMPRESSION: Partially contracted gallbladder. No sonographic evidence of acute cholecystitis or biliary duct dila tation. Report
--- NOTE | 2023-03-12 19:09 | ED ---
Abdominal Pain HPI - General Chief Complaint: Abdominal Pain Stated Complaint: Abd pain Time Seen by Provider: 03/12/23 17:52 Source: patient, RN notes reviewed, old records reviewed Mode of arrival: ambulatory Limitations: no limitations - History of Present Illness Initial Comments: This is a 62-year-old male to the emergency department today for evaluation. Patient presents today for about a week and half a week of abdominal pain severe epigastric abdominal pain with bloating worse when he eats worse when he takes a deep breath currently worse when he moves. Pain and bloating got worse over the last few days. Feverish sweating without significant shortness of breath. MD Complaint: abdominal pain, other (Chest pain) -: days(s) Location: epigastric Radiation: epigastric Migration to: epigastric Severity: severe Severity scale (1-10): 8 Quality: stabbing, aching Consistency: constant Improves With: nothing Worsens With: nothing Associated Symptoms: nausea, vomiting Treatments Prior to Arrival: other (0) - Related Data Home Medications Medication Instructions Recorded Confirmed Atorvastatin [Lipitor] 80 mg PO DAILY 07/15/20 03/12/23 Prasugrel [Effient] 10 mg PO DAILY 07/15/20 03/12/23 Omeprazole 40 mg PO DAILY 03/12/23 03/12/23 Allergies Allergy/AdvReac Type Severity Reaction Status Date / Time No Known Allergies Allergy Verified 03/12/23 18:20 Review of Systems ROS Statement: Those systems with pertinent positive or pertinent negative responses have been documented in the HPI. ROS Other: All systems not noted in ROS Statement are negative. Past Medical History Past Medical History: Coronary Artery Disease (CAD), Chest Pain / Angina, Hypertension, Myocardial Infarction (HI) Additional Past Medical History / Comment(s): STEMI 2019 Last Myocardial Infarction Date:: 10/02/2018 History of Any Multi-Drug Resistant Organisms: None Reported Past Surgical History: Heart Catheterization With Stent Additional Past Surgical History / Comment(s): right eye surgery, 7 cardiac stents, Past Anesthesia/Blood Transfusion Reactions: No Reported Reaction Date of Last Stent Placement:: 09/27/2018 Past Psychological History: ADD/ADHD Smoking Status: Former smoker Past Alcohol Use History: Rare Past Drug Use History: None Reported - Past Family History Father Family Medical History: Cancer Additional Family Medical History / Comment(s): pancreatic cancer Mother Family Medical History: Cancer Additional Family Medical History / Comment(s): breast cancer, her father had colon cancer General Exam Limitations: no limitations General appearance: alert, in no apparent distress Head exam: Present: atraumatic, normocephalic, normal inspection Eye exam: Present: normal appearance, PERRL, EOMI. Absent: scleral icterus, conjunctival injection, periorbital swelling ENT exam: Present: normal exam, mucous membranes moist Neck exam: Present: normal inspection. Absent: tenderness, meningismus, lymphadenopathy Respiratory exam: Present: normal lung sounds bilaterally. Absent: respiratory distress, wheezes, rales, rhonchi, stridor Cardiovascular Exam: Present: regular rate, normal rhythm, normal heart sounds. Absent: systolic murmur, diastolic murmur, rubs, gallop, clicks GI/Abdominal exam: Present: soft, normal bowel sounds. Absent: distended, tenderness, guarding, rebound, rigid Extremities exam: Present: normal inspection, full ROM, normal capillary refill. Absent: tenderness, pedal edema, joint swelling, calf tenderness Back exam: Present: normal inspection Neurological exam: Present: alert, oriented X3, CN II-XII intact Psychiatric exam: Present: normal affect, normal mood Skin exam: Present: warm, dry, intact, normal color. Absent: rash Course Vital Signs 03/12/23 03/12/23 17:31 21:45 Temperature 98 F 98.1 F Pulse Rate 58 L 59 L Respiratory 16 16 Rate Blood Pressure 134/75 135/84 O2 Sat by Pulse 98 98 Oximetry - Reevaluation(s) Reevaluation #1: 03/12/23 20:42 Medical record is reviewed Reevaluation #2: 03/12/23 20:42 Patient has abdominal pain Reevaluation #3: 03/12/23 21:32 Patient informed results and questions answered Reevaluation #4: 03/12/23 20:42 Was pt. sent in by a medical professional or institution (, PA, [employer] FOUNTAIN OPERATOR, urgent care, hospital, or alf...) When possible be specific @ -no Did you speak to anyone other than the patient for history (EMS, parent, family, police, friend...)? What history was obtained from this source @ -no Did you review nursing and triage notes (agree or disagree)? Why? @ -agree Are old charts reviewed (outside hosp., previous admission, EMS record, old EKG, old radiological studies, urgent care reports/EKG's, alf records)? Report findings @ -yes Differential Diagnosis (chest pain, altered mental status, abdominal pain women, abdominal pain men, vaginal bleeding, weakness, fever, dyspnea, syncope, headache, dizziness, GI bleed, back pain, seizure, CVA, palpatations, mental health, musculoskeletal)? @ -prior EKG interpreted by me (3pts min.). @ -yes X-rays interpreted by me (1pt min.). @ -no CT interpreted by me (1pt min.). @ -yes U/S interpreted by me (1pt. min.). @ -yes What testing was considered but not performed or refused? (CT, X-rays, U/S, labs)? Why? @ -none What meds were considered but not given or refused? Why? @ -none Did you discuss the management of the patient with other professionals (professionals i.e. , PA, [employer]OUNTAIN OPERATOR, lab, RT, psych nurse, healthcare social worker, machine assembler supervisor, teacher, loan workout officer, welfare case worker)? Give summary @ -no Was smoking cessation discussed for >3mins.? @ -no Was critical care preformed (if so, how long)? @ -no Were there social determinants of health that impacted care today? How? (Homelessness, low income, unemployed, alcoholism, drug addiction, transportation, low edu. Level, literacy, decrease access to med. care, prison, rehab)? @ -none Was there de-escalation of care discussed even if they declined (Discuss DNR or withdrawal of care, Hospice)? DNR status @ -no What co-morbidities impacted this encounter? (DM, HTN, Smoking, COPD, CAD, Cancer, CVA, ARF, Chemo, Hep., AIDS, mental health diagnosis, sleep apnea, morbid obesity)? @ -none Was patient admitted / discharged? Hospital course, mention meds given and route, prescriptions, significant lab abnormalities, going to OR and other pertinent info. @ - 62 male to the emergency department today for evaluation of chest pain abdominal pain with bloating severe. Patient does have severe Epigastric pain with palpation. Patient has normal imaging of gallbladder and computed tomography scan here in the ER is also shortness breath and diaphoresis. Heart enzymes EKG are negative patient still with abdominal tenderness here in the ER the pain is controlled can be discharged Discharged Undiagnosed new problem with uncertain prognosis? @ -no Drug Therapy requiring intensive monitoring for toxicity (Heparin, Nitro, Insulin, Cardizem)? @ -no Were any procedures done? @ -no Diagnosis/symptom? @ -Chest pain abdominal pain Acute, or Chronic, or Acute on Chronic? @ -Acute Uncomplicated (without systemic symptoms) or Complicated (systemic symptoms)? @ -Complicated Side effects of treatment? @ -no Exacerbation, Progression, or Severe Exacerbation? @ -exacerbation Poses a threat to life or bodily function? How? (Chest pain, USA, HI, pneumonia, PE, COPD, DKA, ARF, appy, cholecystitis, CVA, Diverticulitis, Homicidal, Suicidal, threat to staff... and all critical care pts) @ -yes chest pain Reevaluation #5: 03/12/23 20:42 Differential Abdominal Pain Men: Appendicitis, cholecystitis, diverticulosis, ischemic bowel, pancreatitis, hepatitis, UTI, gastroenteritis, AAA, incarcerated hernia, bowel obstruction, constipation, inflammatory bowel, hepatitis, peptic ulcer disease, splenic infarction, perforated viscus, testicular torsion, this is not meant to be an all-inclusive list Medical Decision Making - Medical Decision Making 62 male to the emergency department today for evaluation of chest pain abdominal pain with bloating severe. Patient does have severe Epigastric pain with palpation. Patient has normal imaging of gallbladder and computed tomography scan here in the ER is also shortness breath and diaphoresis. Heart enzymes EKG are negative patient still with abdominal tenderness here in the ER the pain is controlled can be discharged - Lab Data Result diagrams: 03/12/23 18:15 03/12/23 18:15 Lab Results 03/12/23 03/12/23 03/12/23 Range/Units 18:15 18:15 18:15 WBC 8.0 (3.8-10.6) k/uL RBC 4.83 (4.30-5.90) m/uL Hgb 15.1 (13.0-17.5) gm/dL Hct 45.3 (39.0-53.0) % MCV 93.8 (80.0-100.0) fL MCH 31.2 (25.0-35.0) pg MCHC 33.3 (31.0-37.0) g/dL RDW 13.6 (11.5-15.5) % Plt Count 254 (150-450) k/uL MPV 7.5 Neutrophils % 63 % Lymphocytes % 22 % Monocytes % 7 % Eosinophils % 5 % Basophils % 1 % Neutrophils # 5.0 (1.3-7.7) k/uL Lymphocytes # 1.8 (1.0-4.8) k/uL Monocytes # 0.5 (0-1.0) k/uL Eosinophils # 0.4 (0-0.7) k/uL Basophils # 0.1 (0-0.2) k/uL Sodium 138 (137-145) mmol/L Potassium 4.1 (3.5-5.1) mmol/L Chloride 106 (98-107) mmol/L Carbon Dioxide 22 (22-30) mmol/L Anion Gap 10 mmol/L BUN 14 (9-20) mg/dL Creatinine 1.32 H (0.66-1.25) mg/dL Est GFR (CKD-EPI)AfAm 67 (>60 ml/min/1.73 sqM) Est GFR (CKD-EPI)NonAf 58 (>60 ml/min/1.73 sqM) Glucose 90 (74-99) mg/dL Plasma Lactic Acid [place] 1.1 (0.7-2.0) mmol/L Calcium 9.8 (8.4-10.2) mg/dL Total Bilirubin 0.4 (0.2-1.3) mg/dL AST 26 (17-59) U/L ALT 33 (4-49) U/L Alkaline Phosphatase 80 (38-126) U/L Troponin I (0.000-0.034) ng/mL Total Protein 7.2 (6.3-8.2) g/dL Albumin 4.2 (3.5-5.0) g/dL Amylase 63 (30-110) U/L Lipase 189 (23-300) U/L 03/12/23 Range/Units 18:15 WBC (3.8-10.6) k/uL RBC (4.30-5.90) m/uL Hgb (13.0-17.5) gm/dL Hct (39.0-53.0) % MCV (80.0-100.0) fL MCH (25.0-35.0) pg MCHC (31.0-37.0) g/dL RDW (11.5-15.5) % Plt Count (150-450) k/uL MPV Neutrophils % % Lymphocytes % % Monocytes % % Eosinophils % % Basophils % % Neutrophils # (1.3-7.7) k/uL Lymphocytes # (1.0-4.8) k/uL Monocytes # (0-1.0) k/uL Eosinophils # (0-0.7) k/uL Basophils # (0-0.2) k/uL Sodium (137-145) mmol/L Potassium (3.5-5.1) mmol/L Chloride (98-107) mmol/L Carbon Dioxide (22-30) mmol/L Anion Gap mmol/L BUN (9-20) mg/dL Creatinine (0.66-1.25) mg/dL Est GFR (CKD-EPI)AfAm (>60 ml/min/1.73 sqM) Est GFR (CKD-EPI)NonAf (>60 ml/min/1.73 sqM) Glucose (74-99) mg/dL Plasma Lactic Acid [place] (0.7-2.0) mmol/L Calcium (8.4-10.2) mg/dL Total Bilirubin (0.2-1.3) mg/dL AST (17-59) U/L ALT (4-49) U/L Alkaline Phosphatase (38-126) U/L Troponin I <0.012 (0.000-0.034) ng/mL Total Protein (6.3-8.2) g/dL Albumin (3.5-5.0) g/dL Amylase (30-110) U/L Lipase (23-300) U/L - EKG Data -: EKG Interpreted by Me (EKG is sinus bradycardia 58 MT 135 QRS 90 QTC 404) - Radiology Data Radiology results: report reviewed (Ultrasound gallbladder is negative for acute disease CT chest abdomen pelvis negative for acute disease small hiatal hernia) , image reviewed Disposition Clinical Impression: Chest pain, Abdominal pain Disposition: HOME SELF-CARE Condition: Good Instructions (If sedation given, give patient instructions): Abdominal Pain (ED) Is patient prescribed a controlled substance at d/c from ED?: No Referrals: None,Stated [Primary Care Provider] - 1-2 days Time of Disposition: 21:30
--- NOTE | 2023-03-12 21:11 | CT ---
EXAMINATION TYPE: CT abdomen pelvis w con DATE OF EXAM: 03/12/2023 COMPARISON: None HISTORY: 62-year-old male upper abdominal pain and cramping. TECHNIQUE: Contiguous axial scanning of the abdomen and pelvis following administration of 100 ml Omn ipaque 300 IV contrast. Delayed images through the kidneys and coronal/sagittal reconstructions perf ormed. CT DLP: combined DLP 1123.40 mGycm Automated exposure control for dose reduction was used. FINDINGS: Chest reported separately. There is a small hiatal hernia. Some vascular shunting anterior mid liver. Liver enlarged at 19.6 cm. There may be mild fatty infiltr ation. Portal venous system is patent. No biliary ductal dilatation. Gallbladder, adrenal glands, kidneys, spleen, and pancreas within normal limits. Circumaortic left renal vein. Mild atherosclerotic calcifications infrarenal abdominal aorta and nona c arteries. There is moderate to severe atherosclerotic stenosis left common iliac artery. No dilated small bowel, free fluid, or free air. No mesenteric or retroperitoneal lymphadenopathy. Mild stool were noted. Normal appendix. Mildly redundant sigmoid colon. No pericolonic inflammatory c hange. Bladder urine distended. Extensive prostatic calcifications. Prostate gland mildly enlarged at 4.4 cm wide. No abnormal fluid collection in the pelvis or pelvic lymphadenopathy. Bones: No osseous destructive process. IMPRESSION: 1. SMALL HIATAL HERNIA. 2. HEPATOMEGALY AT 19.6 CM. THERE MAY BE MILD FATTY INFILTRATION OF THE LIVER. 3. Moderate to severe segmental atherosclerotic narrowing left common iliac artery incidentally noted . 4. Otherwise, no acute inflammatory process identified in the abdomen or pelvis The patient's symptoms.
--- NOTE | 2023-03-12 21:15 | CT ---
EXAMINATION TYPE: CT angio chest DATE OF EXAM: 03/12/2023 COMPARISON: 07/15/2020 HISTORY: 62-year-old male upper abdominal pain and cramping. TECHNIQUE: Contiguous axial scanning of the chest performed with IV Contrast, patient injected with 8 0 mL of Isovue 370. Coronal and sagittal MIP reconstructions performed. CT DLP: combined DLP 1123.40 mGycm Automated exposure control for dose reduction was used. FINDINGS: The heart is normal size without pericardial effusion. LAD and circumflex coronary artery calcificati ons are present. Ectatic ascending aorta 3.6 cm. Conventional arch vessel branching anatomy. No thoracic lymphadenopathy by CT size criteria. Satisfactory opacification of the pulmonary arterial system without evidence for pulmonary embolus. Mild to moderate diffuse bronchial wall thickening. Mild emphysematous change. Some similar volume lo ss at the inferior lingular. Strandy scarring in the lower lungs is unchanged. Some mild reticular ch anges could represent some mild interstitial fibrosis. No consolidation or pleural effusion. Small hiatal hernia. Remainder of the abdomen is reported separately. Bones: No osseous destructive process. IMPRESSION: 1. NO EVIDENCE FOR PULMONARY EMBOLUS. 2. COPD WITH MILD EMPHYSEMA. SOME SCATTERED STRANDY SCARRING IN THE LOWER LUNGS. NO ACUTE PULMONARY P ROCESS. 3. LAD AND CIRCUMFLEX CORONARY ARTERY CALCIFICATIONS. 4. SMALL HIATAL HERNIA.
[2023-03-12 21:47] VITALS: BP 135/84; PULSE 59; TEMP 98.1
== END 2023-03-12 21:50 | disposition home or self-care (01) ==
LOC: EC 17:28
DX: R10.13 Epigastric pain (principal); R00.1 Bradycardia, unspecified; I25.10 Atherosclerotic heart disease of native coronary artery without angina pectoris; I10 Essential (primary) hypertension; I25.2 Old myocardial infarction; Z87.891 Personal history of nicotine dependence; Z79.899 Other long term (current) drug therapy; Z79.02 Long term (current) use of antithrombotics/antiplatelets
CPT/HCPCS: 36415; 80053; 82150; 83605; 83690; 84484; 85025; 76705; 71275; 74177; 99284; 96374; 96375 ×2; 96361; J2405; J1885; C9113; Q9967

== ENCOUNTER 2023-05-19 15:05 | Emergency (ER) | payer BC ==
[2023-05-19 15:27] VITALS: RESP 16
--- NOTE | 2023-05-19 15:37 | ED ---
Abdominal Pain HPI - General Chief Complaint: Abdominal Pain Stated Complaint: abd pain Time Seen by Provider: 05/19/23 15:10 Source: patient Mode of arrival: ambulatory Limitations: no limitations - History of Present Illness Initial Comments: 63-year-old male presents emergency department for epigastric abdominal pain. States that he does have re-occurring issues with the abdominal pain. States that he was diagnosed with a mild hiatal hernia on EGD. No history of peptic ulcer disease. States that his pain started today without precipitating fa ctors. States that he was able to eat something after the pain started and it did not alter his pain. He describes it as a pressure sensation without radiation. Has associated nausea without vomiting. Denies any chest pain or shortness of breath. Does have history of cardiac disease. Denies any numbness, tingling or weakness in his extremities. No fevers. No black or bloody stools. No changes in his urination. 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 - Related Data Home Medications Medication Instructions Recorded Confirmed Atorvastatin [Lipitor] 80 mg PO DAILY 07/15/20 03/12/23 Prasugrel [Effient] 10 mg PO DAILY 07/15/20 03/12/23 Omeprazole 40 mg PO DAILY 03/12/23 03/12/23 Previous Rx's Medication Instructions Recorded Famotidine [Pepcid] 20 mg PO BID #28 tablet 05/19/23 Omeprazole [PriLOSEC] 20 mg PO AC-BRKFST #30 cap 05/19/23 Allergies Allergy/AdvReac Type Severity Reaction Status Date / Time No Known Allergies Allergy Verified 03/12/23 18:20 Review of Systems ROS Statement: Those systems with pertinent positive or pertinent negative responses have been documented in the HPI. ROS Other: All systems not noted in ROS Statement are negative. Past Medical History Past Medical History: Coronary Artery Disease (CAD), Chest Pain / Angina, Hypertension, Myocardial Infarction ([place]) Additional Past Medical History / Comment(s): STEMI 2019 Last Myocardial Infarction Date:: 10/02/2018 History of Any Multi-Drug Resistant Organisms: None Reported Past Surgical History: Heart Catheterization With Stent Additional Past Surgical History / Comment(s): right eye surgery, 7 cardiac stents, Past Anesthesia/Blood Transfusion Reactions: No Reported Reaction Date of Last Stent Placement:: 09/27/2018 Past Psychological History: ADD/ADHD Smoking Status: Former smoker Past Alcohol Use History: Rare Past Drug Use History: None Reported - Past Family History Father Family Medical History: Cancer Additional Family Medical History / Comment(s): pancreatic cancer Mother Family Medical History: Cancer Additional Family Medical History / Comment(s): breast cancer, her father had colon cancer General Exam Limitations: no limitations General appearance: alert, in no apparent distress Head exam: Present: atraumatic, normocephalic, normal inspection Eye exam: Present: normal appearance, PERRL, EOMI. Absent: scleral icterus, conjunctival injection, periorbital swelling ENT exam: Present: normal exam, mucous membranes moist Neck exam: Present: normal inspection, tenderness (epigastric). Absent: meningismus, lymphadenopathy Respiratory exam: Present: normal lung sounds bilaterally. Absent: respiratory distress, wheezes, rales, rhonchi, stridor Cardiovascular Exam: Present: regular rate, normal rhythm, normal heart sounds. Absent: systolic murmur, diastolic murmur, rubs, gallop, clicks GI/Abdominal exam: Present: soft, normal bowel sounds. Absent: distended, tenderness, guarding, rebound, rigid Extremities exam: Present: normal inspection, full ROM, normal capillary refill. Absent: tenderness, pedal edema, joint swelling, calf tenderness Back exam: Present: normal inspection Neurological exam: Present: alert, oriented X3, CN II-XII intact Psychiatric exam: Present: normal affect, normal mood Skin exam: Present: warm, dry, intact, normal color. Absent: rash Course Vital Signs 05/19/23 05/19/23 15:07 18:28 Temperature 98.2 F 98.4 F Pulse Rate 69 67 Respiratory 16 16 Rate Blood Pressure 141/75 162/89 O2 Sat by Pulse 96 96 Oximetry Medical Decision Making - Medical Decision Making Was pt. sent in by a medical professional or institution (, PA, MANAGER MUTUAL FUND, urgent care, hospital, or penitentiary...) When possible be specific @ -No Did you speak to anyone other than the patient for history (EMS, parent, family, police, friend...)? What history was obtained from this source @ -No Did you review nursing and triage notes (agree or disagree)? Why? @ -I reviewed and agree Were old charts reviewed (outside hosp., previous admission, EMS record, old EKG, old radiological studies, urgent care reports/EKG's, penitentiary records)? Report findings @ -I reviewed patient's ED visit from March where he was seen for similar pain. He had a CT of his abdomen and pelvis, CTA of his chest and an ultrasound performed all of which were negative Differential Diagnosis (chest pain, altered mental status, abdominal pain women, abdominal pain men, vaginal bleeding, weakness, fever, dyspnea, syncope, headache, dizziness, GI bleed, back pain, seizure, CVA, palpatations, mental h ealth, musculoskeletal)? @ -Differential Abdominal Pain Men: Appendicitis, cholecystitis, diverticulosis, ischemic bowel, pancreatitis, hepatitis, UTI, gastroenteritis, AAA, incarcerated hernia, bowel obstruction, constipation, inflammatory bowel, hepatitis, peptic ulcer disease, splenic infarction, perforated viscus, testicular torsion, this is not meant to be an all-inclusive list EKG interpreted by me (3pts min.). @ -Yes and demonstrates sinus rhythm with a rate of 65. IA interval 144. QRS 97. QTC of 418. No acute ST segment elevations or depressions X-rays interpreted by me (1pt min.). @ -None done CT interpreted by me (1pt min.). @ -Yes and demonstrates no acute process to explain patient's pain U/S interpreted by me (1pt. min.). @ -None done What testing was considered but not performed or refused? (CT, X-rays, U/S, labs)? Why? @ -None What meds were considered but not given or refused? Why? @ -None Did you discuss the management of the patient with other professionals (professionals i.e. , PA, MANAGER MUTUAL FUND, lab, RT, psych nurse, social worker masters, supervisor beehive kiln, teacher, chief procurement officer, watch case polisher)? Give summary @ -No Was smoking cessation discussed for >3mins.? @ -No Was critical care preformed (if so, how long)? @ -No Were there social determinants of health that impacted care today? How? (Homelessness, low income, unemployed, alcoholism, drug addiction, transportation, low edu. Level, literacy, decrease access to med. care, care home, rehab)? @ -No Was there de-escalation of care discussed even if they declined (Discuss DNR or withdrawal of care, Hospice)? DNR status @ -No What co-morbidities impacted this encounter? (DM, HTN, Smoking, COPD, CAD, Cancer, CVA, ARF, Chemo, Hep., AIDS, mental health diagnosis, sleep apnea, m orbid obesity)? @ hiatal hernia Was patient admitted / discharged? Hospital course, mention meds given and route, prescriptions, significant lab abnormalities, going to OR and other pertinent info. @ -Discharged. Upon arrival patient was placed into room 23. There are history of physical exam was performed. IV was established. Laboratory studies conducted. EKG was obtained. Laboratory studies are discussed with the patient as well as a CT. No identifiable reason to extend the patient's pain. He has no ischemic symptoms to his lower extremity. I did discuss that the patient needs to see a vascular surgeon for his CT findings. Also recommended that he see surgery for his current symptoms. May need a HIDA scan. Patient understood this. He is provided with Dr. Winkler INFORMATION and discharged in stable condition. Instructed to return for any new or worsening symptoms Undiagnosed new problem with uncertain prognosis? @ -Yes Drug Therapy requiring intensive monitoring for toxicity (Heparin, Nitro, Insulin, Cardizem)? @ -No Were any procedures done? @ -No Diagnosis/symptom? @ -Acute epigastric abdominal pain Acute, or Chronic, or Acute on Chronic? @ -Acute on chronic Uncomplicated (without systemic symptoms) or Complicated (systemic symptoms)? @ -Complicated Side effects of treatment? @ -No Exacerbation, Progression, or Severe Exacerbation? @ -yes Poses a threat to life or bodily function? How? (Chest pain, [place], [place], pneumonia, PE, COPD, DKA, ARF, appy, cholecystitis, CVA, Diverticulitis, Homicidal, Suicidal, threat to staff... and all critical care pts) @ -No - Lab Data Result diagrams: 05/19/23 16:15 05/19/23 16:15 Lab Results 05/19/23 05/19/23 05/19/23 Range/Units 16:15 16:15 16:15 WBC 11.2 H (3.8-10.6) k/uL RBC 4.70 (4.30-5.90) m/uL Hgb 15.2 (13.0-17.5) gm/dL Hct 44.2 (39.0-53.0) % MCV 93.9 (80.0-100.0) fL MCH 32.3 (25.0-35.0) pg MCHC 34.4 (31.0-37.0) g/dL RDW 13.0 (11.5-15.5) % Plt Count 231 (150-450) k/uL MPV 7.3 Neutrophils % 78 % Lymphocytes % 13 % Monocytes % 5 % Eosinophils % 3 % Basophils % 1 % Neutrophils # 8.8 H (1.3-7.7) k/uL Lymphocytes # 1.4 (1.0-4.8) k/uL Monocytes # 0.5 (0-1.0) k/uL Eosinophils # 0.3 (0-0.7) k/uL Basophils # 0.1 (0-0.2) k/uL Sodium 141 (137-145) mmol/L Potassium 3.9 (3.5-5.1) mmol/L Chloride 107 (98-107) mmol/L Carbon Dioxide 21 L (22-30) mmol/L Anion Gap 13 mmol/L BUN 14 (9-20) mg/dL Creatinine 1.08 (0.66-1.25) mg/dL Est GFR (CKD-EPI)AfAm 85 (>60 ml/min/1.73 sqM) Est GFR (CKD-EPI)NonAf 73 (>60 ml/min/1.73 sqM) Glucose 102 H (74-99) mg/dL Plasma Lactic Acid [place] (0.7-2.0) mmol/L Calcium 9.2 (8.4-10.2) mg/dL Total Bilirubin 0.4 (0.2-1.3) mg/dL AST 29 (17-59) U/L ALT 29 (4-49) U/L Alkaline Phosphatase 80 (38-126) U/L Troponin I <0.012 (0.000-0.034) ng/mL Total Protein 7.0 (6.3-8.2) g/dL Albumin 4.2 (3.5-5.0) g/dL Lipase 270 (23-300) U/L 05/19/23 Range/Units 16:15 WBC (3.8-10.6) k/uL RBC (4.30-5.90) m/uL Hgb (13.0-17.5) gm/dL Hct (39.0-53.0) % MCV (80.0-100.0) fL MCH (25.0-35.0) pg MCHC (31.0-37.0) g/dL RDW (11.5-15.5) % Plt Count (150-450) k/uL MPV Neutrophils % % Lymphocytes % % Monocytes % % Eosinophils % % Basophils % % Neutrophils # (1.3-7.7) k/uL Lymphocytes # (1.0-4.8) k/uL Monocytes # (0-1.0) k/uL Eosinophils # (0-0.7) k/uL Basophils # (0-0.2) k/uL Sodium (137-145) mmol/L Potassium (3.5-5.1) mmol/L Chloride (98-107) mmol/L Carbon Dioxide (22-30) mmol/L Anion Gap mmol/L BUN (9-20) mg/dL Creatinine (0.66-1.25) mg/dL Est GFR (CKD-EPI)AfAm (>60 ml/min/1.73 sqM) Est GFR (CKD-EPI)NonAf (>60 ml/min/1.73 sqM) Glucose (74-99) mg/dL Plasma Lactic Acid [place] 1.4 (0.7-2.0) mmol/L Calcium (8.4-10.2) mg/dL Total Bilirubin (0.2-1.3) mg/dL AST (17-59) U/L ALT (4-49) U/L Alkaline Phosphatase (38-126) U/L Troponin I (0.000-0.034) ng/mL Total Protein (6.3-8.2) g/dL Albumin (3.5-5.0) g/dL Lipase (23-300) U/L Disposition Clinical Impression: Epigastric pain Disposition: HOME SELF-CARE Condition: Stable Instructions (If sedation given, give patient instructions): Abdominal Pain (ED) Additional Instructions: I recommend you follow up with Dr. Castro for further evaluation of your symptoms. You may benefit from having a HIDA scan next. Try the medications that were prescribed to see if they alleviate any of your symptoms return. I also recommend you be evaluated for the blockage in your leg by a vascular surgeon. Return for new or worsening symptoms Prescriptions: Famotidine [Pepcid] 20 mg PO BID #28 tablet Omeprazole [PriLOSEC] 20 mg PO -BRKFST #30 cap Is patient prescribed a controlled substance at d/c from ED?: No Referrals: Nonstaff,Physician [Primary Care Provider] - 1-2 days Lior Castro MD [STAFF PHYSICIAN] - 1-2 days Time of Disposition: 18:29
[2023-05-19] MEDS ORDERED: SODIUM CHLORIDE 0.9% 1,000 ML IV STA (15:38)
[2023-05-19] MEDS ORDERED: ONDANSETRON 4 MG/2 ML VIAL IVP STA (15:38)
[2023-05-19] MEDS ORDERED: MORPHINE SULFATE 4 MG/ML SYRINGE IVP STA (15:40)
[2023-05-19 16:37] LABS: Basophils # (A) 0.1 k/uL (0-0.2); Basophils % (A) 1 %; Eosinophils # (A) 0.3 k/uL (0-0.7); Eosinophils % (A) 3 %; HCT 44.2 % (39.0-53.0); HGB 15.2 gm/dL (13.0-17.5); Lymphocytes # (A) 1.4 k/uL (1.0-4.8); Lymphocytes % (A) 13 %; MCH 32.3 pg (25.0-35.0); MCHC 34.4 g/dL (31.0-37.0); MCV 93.9 fL (80.0-100.0); Mean Platelet Volume 7.3; Monocytes # (A) 0.5 k/uL (0-1.0); Monocytes % (A) 5 %; Neutrophils # (A) 8.8 k/uL (1.3-7.7); Neutrophils % (A) 78 %; Platelet Count 231 k/uL (150-450); WBC 11.2 k/uL (3.8-10.6)
[2023-05-19 16:52] LABS: ALT 29 U/L (4-49); African American GFR (CKD) 85 (>60 ml/min/1.73 sqM); Albumin 4.2 g/dL (3.5-5.0); Anion Gap 13 mmol/L; Blood Urea Nitrogen 14 mg/dL (9-20); Calcium 9.2 mg/dL (8.4-10.2); Carbon Dioxide 21 mmol/L (22-30); Chloride 107 mmol/L (98-107); Glucose 102 mg/dL (74-99); Lipase 270 U/L (23-300); Non-African American GFR(CKD) 73 (>60 ml/min/1.73 sqM); Sodium 141 mmol/L (137-145); Total Bilirubin 0.4 mg/dL (0.2-1.3)
[2023-05-19 16:54] LABS: AST 29 U/L (17-59); Potassium 3.9 mmol/L (3.5-5.1)
[2023-05-19 16:55] LABS: Alkaline Phosphatase 80 U/L (38-126)
--- NOTE | 2023-05-19 17:04 | CT ---
EXAMINATION TYPE: CT abdomen pelvis w con DATE OF EXAM: 05/19/2023 COMPARISON: 03/12/2023 HISTORY: 63-year-old male generalized abdomen pain epigastric pain cramping squeezing TECHNIQUE: Contiguous axial scanning of the abdomen and pelvis following administration of 100 ml Iso joni 300 IV contrast. Delayed images through the kidneys and coronal/sagittal reconstructions perform ed. CT DLP: 929.7 mGycm Automated exposure control for dose reduction was used. FINDINGS: Heart normal size without pericardial effusion. Circumflex coronary artery calcifications a re present. There is patchy groundglass change in the periphery of the right base, new from prior study. No pleur al effusion. Liver is mildly enlarged in 19.0 cm with diminished attenuation. Suspect some peripheral wedge-shaped vascular shunting anterior mid liver. Portal venous system is patent. No biliary ductal dilatation. Gallbladder, adrenal glands, kidneys, spleen, and pancreas within normal limits. Prominent fluid-filled small bowel loops throughout the mid abdomen with suggestion of some mild jeju nal wall thickening as well. No dilated small bowel, free fluid, or free air. No mesenteric or retroperitoneal lymphadenopathy. Normal appendix. Mild stool burden. No pericolonic inflammatory change. Prominent distention of the urinary bladder. Extensive prostatic calcifications are present. Prostate gland or gland enlargement 4.0 cm wide. No abnormal fluid collection in the pelvis or pelvic lymphadenopathy. Mild to moderate atherosclerotic calcifications and plaque within the infrarenal abdominal aorta. The re appears to be severe stenosis left common iliac artery from metastatic calcifications. Bones: No osseous destructive process. IMPRESSION: 1. NEW GROUNDGLASS OPACITY AT THE RIGHT BASE. CORRELATE FOR EARLY DEVELOPING PNEUMONIA. 2. PROMINENT FLUID-FILLED SMALL BOWEL LOOPS THROUGHOUT THE MID ABDOMEN COULD REPRESENT A NONSPECIFIC MILD ENTERITIS. 3. MILD HEPATOMEGALY AT 19.0 CM WITH MILD TO MODERATE HEPATIC STEATOSIS. 4. ATHEROSCLEROTIC CALCIFICATIONS CONTRIBUTING TO SEVERE LEFT COMMON ILIAC ARTERY STENOSIS.
[2023-05-19] MEDS ORDERED: PANTOPRAZOLE 40 MG/10 ML VIAL IVP STA (18:25)
[2023-05-19] MEDS ORDERED: FAMOTIDINE 20 MG/2 ML VIAL IV STA (18:25)
[2023-05-19 18:31] VITALS: BP 162/89; PULSE 67; TEMP 98.4
== END 2023-05-19 18:59 | disposition home or self-care (01) ==
LOC: EC 15:05
DX: R10.13 Epigastric pain (principal); I25.10 Atherosclerotic heart disease of native coronary artery without angina pectoris; I10 Essential (primary) hypertension; I25.2 Old myocardial infarction; Z86.59 Personal history of other mental and behavioral disorders; Z87.891 Personal history of nicotine dependence; Z79.899 Other long term (current) drug therapy; K44.9 Diaphragmatic hernia without obstruction or gangrene; K76.0 Fatty (change of) liver, not elsewhere classified; Z79.02 Long term (current) use of antithrombotics/antiplatelets
CPT/HCPCS: 36415; 80053; 83605; 83690; 84484; 85025; 74177; 99285; 96374; 96375 ×3; J2270; J2405; J3490; C9113; Q9967

== ENCOUNTER 2023-08-07 13:21 | Emergency (ER) | payer BC ==
[2023-08-07 13:39] VITALS: TEMP 98.8
--- NOTE | 2023-08-07 13:58 | ED ---
General Adult HPI - General Chief complaint: Extremity Problem,Nontraumatic Stated complaint: Left leg pain left leg pain Time Seen by Provider: 08/07/23 13:36 Source: patient, RN notes reviewed Mode of arrival: ambulatory Limitations: no limitations - History of Present Illness Initial comments: Patient is a pleasant 63-year-old male presenting to the emergency department with concerns for discomfort behind left leg. Symptoms have been present for the past week. Patient is also having some discomfort of the arch of his right foot for the past several weeks. Patient questions if he is walking funny on his foot. Patient tried new shoes without much improvement. No trauma to either area. No discoloration of the feet or coolness or pain of the distal feet. Patient does have mild back discomfort however does not believe that is related. Discomfort does not radiate from the back down to the legs. - Related Data Home Medications Medication Instructions Recorded Confirmed Atorvastatin [Lipitor] 80 mg PO DAILY 07/15/20 03/12/23 Prasugrel [Effient] 10 mg PO DAILY 07/15/20 03/12/23 Omeprazole 40 mg PO DAILY 03/12/23 03/12/23 Previous Rx's Medication Instructions Recorded Famotidine [Pepcid] 20 mg PO BID #28 tablet 05/19/23 Omeprazole [PriLOSEC] 20 mg PO AC-BRKFST #30 cap 05/19/23 Allergies Allergy/AdvReac Type Severity Reaction Status Date / Time No Known Allergies Allergy Verified 08/07/23 13:27 Review of Systems ROS Statement: Those systems with pertinent positive or pertinent negative responses have been documented in the HPI. ROS Other: All systems not noted in ROS Statement are negative. Constitutional: Denies: fever Eyes: Denies: eye pain ENT: Denies: ear pain Respiratory: Denies: dyspnea Cardiovascular: Denies: chest pain Gastrointestinal: Denies: abdominal pain Past Medical History Past Medical History: Coronary Artery Disease (CAD), Chest Pain / Angina, Hypertension, Myocardial Infarction ([place]) Additional Past Medical History / Comment(s): STEMI 2019 Last Myocardial Infarction Date:: 10/02/2018 History of Any Multi-Drug Resistant Organisms: None Reported Past Surgical History: Heart Catheterization With Stent Additional Past Surgical History / Comment(s): right eye surgery, 7 cardiac stents, Past Anesthesia/Blood Transfusion Reactions: No Reported Reaction Date of Last Stent Placement:: 09/27/2018 Past Psychological History: ADD/ADHD Smoking Status: Former smoker Past Alcohol Use History: Rare Past Drug Use History: None Reported - Past Family History Father Family Medical History: Cancer Additional Family Medical History / Comment(s): pancreatic cancer Mother Family Medical History: Cancer Additional Family Medical History / Comment(s): breast cancer, her father had colon cancer General Exam Limitations: no limitations General appearance: alert, in no apparent distress Head exam: Present: normocephalic Eye exam: Present: normal appearance Neck exam: Present: normal inspection Respiratory exam: Present: normal lung sounds bilaterally Cardiovascular Exam: Present: regular rate, normal rhythm Expanded Peripheral pulses: 2+: Posterior Tibialis (R), Posterior Tibialis (L), Dorsalis Pedis (R), Dorsalis Pedis (L) GI/Abdominal exam: Present: soft. Absent: tenderness, pulsatile mass Extremities exam: Present: normal capillary refill, calf tenderness (Left-sided and behind the left knee), other (Mild tenderness right medial midfoot without swelling or warmth or discoloration) Back exam: Present: normal inspection. Absent: tenderness Neurological exam: Present: alert. Absent: motor sensory deficit Psychiatric exam: Present: normal affect, normal mood Skin exam: Present: normal color Course Vital Signs 08/07/23 08/07/23 13:22 14:30 Temperature 98.8 F Pulse Rate 89 Respiratory 18 Rate Blood Pressure 184/70 160/90 O2 Sat by Pulse 97 Oximetry Medical Decision Making - Medical Decision Making Was pt. sent in by a medical professional or institution (, PA, STOREROOM SUPERVISOR, urgent care, hospital, or senior care...) When possible be specific @ -No Did you speak to anyone other than the patient for history (EMS, parent, family, police, friend...)? What history was obtained from this source @ -No Did you review nursing and triage notes (agree or disagree)? Why? @ -I reviewed and agree with nursing and triage notes Were old charts reviewed (outside hosp., previous admission, EMS record, old EKG, old radiological studies, urgent care reports/EKG's, senior care records)? Report findings @ -No old charts were reviewed Differential Diagnosis (chest pain, altered mental status, abdominal pain women, abdominal pain men, vaginal bleeding, weakness, fever, dyspnea, syncope, headache, dizziness, GI bleed, back pain, seizure, CVA, palpatations, mental health, musculoskeletal)? @ -Differential Musculoskeletal Muscular strain, contusion, ligament sprain, fracture, arthritis, septic arthritis, bursitis, cellulitis, muscle spasm, nerve compression, DVT, arterial occlusion, herpes zoster, electrolyte abnormality, tumor.... This is not meant to be in all inclusive list EKG interpreted by me (3pts min.). @ -As above X-rays interpreted by me (1pt min.). @ -Right foot x-ray without acute CT interpreted by me (1pt min.). @ -None done U/S interpreted by me (1pt. min.). @ -Ultrasound left leg negative for DVT What testing was considered but not performed or refused? (CT, X-rays, U/S, labs)? Why? @ -None What meds were considered but not given or refused? Why? @ -None Did you discuss the management of the patient with other professionals (professionals i.e. , PA, STOREROOM SUPERVISOR, lab, RT, psych nurse, social human services assistants, certified master locksmith, teacher, administrative hearing officer, case management associate)? Give summary @ -No Was smoking cessation discussed for >3mins.? @ -No Was critical care preformed (if so, how long)? @ -No Were there social determinants of health that impacted care today? How? (Homelessness, low income, unemployed, alcoholism, drug addiction, transportation, low edu. Level, literacy, decrease access to med. care, senior care, rehab)? @ -No Was there de-escalation of care discussed even if they declined (Discuss DNR or withdrawal of care, Hospice)? DNR status @ -No What co-morbidities impacted this encounter? (DM, HTN, Smoking, COPD, CAD, Cancer, CVA, ARF, Chemo, Hep., AIDS, mental health diagnosis, sleep apnea, morbi d obesity)? @ -None Was patient admitted / discharged? Hospital course, mention meds given and route, prescriptions, significant lab abnormalities, going to OR and other pertinent info. @ -Patient reevaluated and updated. Patient is resistant to anti- inflammatories or muscle relaxers. Patient is receptive to trying orthotics and follow-up. Patient updated on results. Undiagnosed new problem with uncertain prognosis? @ -No Drug Therapy requiring intensive monitoring for toxicity (Heparin, Nitro, Insulin, Cardizem)? @ -No Were any procedures done? @ -No Diagnosis/symptom? @ -Right foot pain, left leg pain Acute, or Chronic, or Acute on Chronic? @ -Acute, acute Uncomplicated (without systemic symptoms) or Complicated (systemic symptoms)? @ -Default Side effects of treatment? @ -No Exacerbation, Progression, or Severe Exacerbation? @ -No Poses a threat to life or bodily function? How? (Chest pain, [place], [place], pneumonia, PE, COPD, DKA, ARF, appy, cholecystitis, CVA, Diverticulitis, Homicidal, Suicidal, threat to staff... and all critical care pts) @ -No Disposition Clinical Impression: Right foot pain, Left leg pain Disposition: HOME SELF-CARE Condition: Stable Instructions (If sedation given, give patient instructions): Plantar Fasciitis (ED), Arthralgia (ED) Additional Instructions: Please try [id number] orthotics for your foot. Please try [id number] anti-inflammatory such as Motrin. Please follow-up with your primary care physician in the next day or 2 for recheck. Please also follow-up with orthopedics, number provided. Return for increased pain, swelling, weakness, loss of sensation, color change, worsening symptoms or other concerns. Is patient prescribed a controlled substance at d/c from ED?: No Referrals: Bereket Rae MD [STAFF PHYSICIAN] - 1-2 days Indira Lemus DO [Doctor of Osteopathic Medicine] - 1-2 days Time of Disposition: 15:05
--- NOTE | 2023-08-07 14:14 | US ---
EXAMINATION TYPE: US venous doppler duplex LE LT DATE OF EXAM: 08/07/2023 1:47 PM COMPARISON: NONE CLINICAL INDICATION: Male, 63 years old with history of pain; Pt states left leg pain SIDE PERFORMED: Left TECHNIQUE: The lower extremity deep venous system is examined utilizing real time linear array sonog ruth with graded compression, doppler sonography and color-flow sonography. VESSELS IMAGED: Common Femoral Vein Deep Femoral Vein Greater Saphenous Vein * Femoral Vein Popliteal Vein Small Saphenous Vein * Proximal Calf Veins (* superficial vessels) Left Leg: Negative for DVT IMPRESSION: Grayscale, color doppler, spectral doppler imaging performed of the deep veins of the lo wer extremities. There is normal flow, compressibility, vascular waveforms.
--- NOTE | 2023-08-07 14:55 | XR ---
EXAMINATION TYPE: XR foot complete RT DATE OF EXAM: 08/07/2023 2:44 PM CLINICAL INDICATION:Male, 63 years old with history of pain; COMPARISON: None TECHNIQUE: XR foot complete RT examined in the AP, oblique, and lateral projections. FINDINGS: No evidence of any acute osseous pathology. No evidence of soft tissue swelling. Joints are preserve d. Incidental note is made of symphalangism of the fifth distal interphalangeal joint. Multifocal deg eneration changes throughout the foot most pronounced at the first digit metatarsal tarsal phalangeal joint. IMPRESSION: 1. No evidence of acute fracture. 2. 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
[2023-08-07 16:11] VITALS: BP 151/80; PULSE 76; RESP 16
== END 2023-08-07 15:37 | disposition home or self-care (01) ==
LOC: EC 13:21
DX: M79.671 Pain in right foot (principal); M79.605 Pain in left leg; I10 Essential (primary) hypertension; I25.10 Atherosclerotic heart disease of native coronary artery without angina pectoris; I25.2 Old myocardial infarction; Z79.02 Long term (current) use of antithrombotics/antiplatelets; Z79.899 Other long term (current) drug therapy; Z87.891 Personal history of nicotine dependence; Z95.5 Presence of coronary angioplasty implant and graft
CPT/HCPCS: 99284

== ENCOUNTER → 2024-04-25 | Outpatient (CLI) | payer BC ==
--- NOTE | 2024-04-25 12:03 | FL ---
EXAMINATION TYPE: FL UGI air w small bowel DATE OF EXAM: 04/25/2024 11:56 AM COMPARISON: CT 05/19/2023 CLINICAL INDICATION:Male, 64 years old with history of R14.0 ABDOMINAL DISTENSION (GASEOUS); TECHNIQUE: The procedure was explained and patient history elicited. All patient questions were ans wered prior to start of procedure. A sales associate radiograph of the abdomen was also reviewed. Multiple flu oroscopic spot images of the esophagus, stomach and duodenum were obtained following ingestion of liq uid barium and EZ-gas crystals. After the completion of the upper gastrointestinal examination, a de tailed small bowel examination was performed. The patient was asked to ingest additional liquid ruiz um and incremental frontal abdominal radiographs were then taken until contrast was visualized in the cecum. Fluoroscopic time: 1 minute 39 seconds Fluoroscopic images: Radiographs taken: 94 DAP: Not reported [id number] FINDINGS: Upper GI examination: The sales associate abdominal radiograph demonstrates a normal bowel gas pattern without dilated loops of small or large bowel. There is no evidence for organomegaly or pneumoperitoneum. No abnormal calcificati ons. The visualized osseous structures are intact. The esophagus appears unremarkable without evidence of focal stricture, ulceration or abnormal outpou raman. No hiatal hernia was visualized. No evidence of gastroesophageal reflux was seen. The stoma ch and duodenum demonstrate a normal course and contour. There is no evidence of focal gastric or du odenal ulceration, stricture, or abnormal outpouching. Small bowel mucosal folds are felt to be withi n normal limits. Detailed small bowel examination: Contrast is seen extending from the duodenojejunal junction into the cecum after 150 minutes , which is slightly delayed. The small bowel follows normal distribution and contour without any evidence of extraluminal or intraluminal irregularity. There is no displacement of bowel loops or extraluminal extravasation of contrast material. IMPRESSION: 1. Mild esophageal dysmotility. No evidence for bowel obstruction. 2. Slightly delayed transit of small bowel. No evidence for obstruction. [facility], , 04/25/2024 12:00 PM
== END | disposition home or self-care (01) ==
LOC: RADFLMAIN 08:11
PROVIDERS: ATTEND Internal Medicine Gastroenterology
DX: K22.4 Dyskinesia of esophagus (principal); R14.0 Abdominal distension (gaseous)
CPT/HCPCS: 74240; 74248

== ENCOUNTER 2024-06-10 12:04 | Emergency (ER) | payer BC ==
--- NOTE | 2024-06-10 12:10 | ED ---
Chest Pain HPI - General Chief Complaint: Chest Pain Stated Complaint: Chest pain Time Seen by Provider: 06/10/24 12:05 Source: patient, RN notes reviewed Mode of arrival: wheelchair Limitations: no limitations - History of Present Illness Initial Comments: Quick Note: This is a 64-year-old male who presents to the emergency department for chest pain and shortness of breath. Reports shortness of breath over the last couple of days and states that he feels like he cannot take a full deep breath. Earlier today he started to develop pain and pressure in the center of his chest. Reports a history of 7 cardiac stents, most recently a few years ago. However, states that this pain feels different than prior heart attacks. - Related Data Home Medications Medication Instructions Recorded Confirmed Atorvastatin [Lipitor] 80 mg PO DAILY 07/15/20 03/12/23 Prasugrel [Effient] 10 mg PO DAILY 07/15/20 03/12/23 Omeprazole 40 mg PO DAILY 03/12/23 03/12/23 Previous Rx's Medication Instructions Recorded Famotidine [Pepcid] 20 mg PO BID #28 tablet 05/19/23 Omeprazole [PriLOSEC] 20 mg PO AC-BRKFST #30 cap 05/19/23 Allergies Allergy/AdvReac Type Severity Reaction Status Date / Time No Known Allergies Allergy Verified 06/10/24 12:17 Review of Systems ROS Statement: Those systems with pertinent positive or pertinent negative responses have been documented in the HPI. ROS Other: All systems not noted in ROS Statement are negative. Past Medical History Past Medical History: Coronary Artery Disease (CAD), Chest Pain / Angina, Hy pertension, Myocardial Infarction ([place]) Additional Past Medical History / Comment(s): STEMI 2019 Last Myocardial Infarction Date:: 10/02/2018 History of Any Multi-Drug Resistant Organisms: None Reported Past Surgical History: Heart Catheterization With Stent Additional Past Surgical History / Comment(s): right eye surgery, 7 cardiac stents, Past Anesthesia/Blood Transfusion Reactions: No Reported Reaction Date of Last Stent Placement:: 09/27/2018 Past Psychological History: ADD/ADHD Smoking Status: Former smoker Past Alcohol Use History: Rare Past Drug Use History: None Reported - Past Family History Father Family Medical History: Cancer Additional Family Medical History / Comment(s): pancreatic cancer Mother Family Medical History: Cancer Additional Family Medical History / Comment(s): breast cancer, her father had colon cancer General Exam - General Exam Comments Initial Comments: Visual Physical Exam Vital signs reviewed General: Well-appearing, nontoxic, no acute distress. Head: Normocephalic, atraumatic Eyes: PERRLA, EOMI ENT: Airway patent Chest: Nonlabored breathing Skin: No visual rash, normal skin tone Neuro: Alert and oriented 3 Musculoskeletal: No gross abnormalities Course Vital Signs 06/10/24 12:15 Temperature 98.4 F Pulse Rate 83 Respiratory 18 Rate Blood Pressure 173/100 O2 Sat by Pulse 100 Oximetry Chest Pain MDM - MDM I performed the QuickNote portion of this chart. Signed Alexia Malik PA-C. Patient left AMA from the waiting room prior to full evaluation as well as completion of ordered testing. Disposition Clinical Impression: Chest pain Disposition: LEFT AGAINST MEDICAL ADVICE Condition: Good Referrals: Noble Buaer DO [Primary Care Provider] - 1-2 days
[2024-06-10 12:17] VITALS: BP 173/100; PULSE 83; RESP 18; TEMP 98.4
== END 2024-06-10 14:27 | disposition left against medical advice (07) ==
LOC: EC 12:04
DX: R07.89 Other chest pain (principal); Z53.29 Procedure and treatment not carried out because of patient's decision for other reasons; Z87.891 Personal history of nicotine dependence
CPT/HCPCS: 93005; 99284

== ENCOUNTER 2024-10-06 07:20 | Emergency (ER) | payer BC ==
[2024-10-06 07:35] VITALS: RESP 20
[2024-10-06] MEDS: BENZONATATE 100 MG CAP PO STA (07:46)
--- NOTE | 2024-10-06 07:47 | ED ---
URI HPI - General Chief Complaint: Upper Respiratory Infection Stated Complaint: Cough Time Seen by Provider: 10/06/24 07:37 Source: patient, RN notes reviewed Mode of arrival: ambulatory Limitations: no limitations - History of Present Illness Initial Comments: This is a 64 year old male who presents to the emergency department for coughing and congestion. States that it started 10 days ago. He has had intermittent fevers associated with this as well. The cough is nonproductive. Denies any chest pain or shortness of breath. He has not had any sick contacts. States that he seemed to do better yesterday and went to work. However, symptoms then returned and seems like they are worse again. MD Complaint: fever, cough, nasal congestion - Related Data Home Medications Medication Instructions Recorded Confirmed Atorvastatin [Lipitor] 80 mg PO DAILY 07/15/20 03/12/23 Prasugrel [Effient] 10 mg PO DAILY 07/15/20 03/12/23 Omeprazole 40 mg PO DAILY 03/12/23 03/12/23 Previous Rx's Medication Instructions Recorded Famotidine [Pepcid] 20 mg PO BID #28 tablet 05/19/23 Omeprazole [PriLOSEC] 20 mg PO AC-BRKFST #30 cap 05/19/23 Albuterol Sulfate [Albuterol 1 puff PO Q4-6H PRN #8.5 gm 10/06/24 Sulfate Hfa] Benzonatate [Tessalon Perle] 200 mg PO TID PRN #20 capsule 10/06/24 Levofloxacin [Levaquin] 750 mg PO DAILY 5 Days #5 tab 10/06/24 guaiFENesin [Mucinex] 1,200 mg PO BID PRN #20 tab 10/06/24 Allergies Allergy/AdvReac Type Severity Reaction Status Date / Time No Known Allergies Allergy Verified 06/10/24 12:17 Review of Systems ROS Statement: Those systems with pertinent positive or pertinent negative responses have been documented in the HPI. ROS Other: All systems not noted in ROS Statement are negative. Past Medical History Past Medical History: Coronary Artery Disease (CAD), Chest Pain / Angina, Hypertension, Myocardial Infarction ([place]) Additional Past Medical History / Comment(s): STEMI 2019 Last Myocardial Infarction Date:: 10/02/2018 History of Any Multi-Drug Resistant Organisms: None Reported Past Surgical History: Heart Catheterization With Stent Additional Past Surgical History / Comment(s): right eye surgery, 7 cardiac stents, Past Anesthesia/Blood Transfusion Reactions: No Reported Reaction Date of Last Stent Placement:: 09/27/2018 Past Psychological History: ADD/ADHD Smoking Status: Former smoker Past Alcohol Use History: Rare Past Drug Use History: None Reported - Past Family History Father Family Medical History: Cancer Additional Family Medical History / Comment(s): pancreatic cancer Mother Family Medical History: Cancer Additional Family Medical History / Comment(s): breast cancer, her father had colon cancer General Exam Limitations: no limitations General appearance: alert, in no apparent distress Head exam: Present: atraumatic, normocephalic, normal inspection Respiratory exam: Present: normal lung sounds bilaterally. Absent: respiratory distress, wheezes, rales, rhonchi, stridor Cardiovascular Exam: Present: regular rate, normal rhythm Neurological exam: Present: alert, oriented X3, CN II-XII intact Psychiatric exam: Present: normal affect, normal mood Skin exam: Present: warm, dry, intact, normal color. Absent: rash Course Vital Signs 10/06/24 10/06/24 10/06/24 07:32 08:43 08:53 Temperature 97.9 F Pulse Rate 89 77 80 Respiratory 20 Rate Blood Pressure 152/88 O2 Sat by Pulse 96 Oximetry Medical Decision Making - Medical Decision Making This is a 64 year old male who presents to the emergency department for coughing and congestion. Was pt. sent in by a medical professional or institution? @ -No Did you speak to anyone other than the patient for history? @ -No Did you review nursing and triage notes? @ -Yes, and I agree, it is accurate with regards to the patient's symptoms. Were old charts reviewed? @ -No Differential Diagnosis? @ -Differential Cough: Influenza, Covid, RSV, croup, allergic rhinitis, GERD, pneumonia, bronchitis, COPD, viral pharyngitis, streptococcal pharyngitis, this is not meant to be an all-inclusive list. EKG interpreted by me (3pts min.)? @ -Not obtained X-rays interpreted by me (1pt min.)? @ -Chest x-ray obtained. My interpretation identifies right middle and lower lobe opacities. CT interpreted by me (1pt min.)? @ -Not obtained U/S interpreted by me (1pt. min.)? @ -Not obtained What testing was considered but not performed? (CT, X-rays, U/S, labs)? Why? @ -None What meds were considered but not given? Why? @ -None Did you discuss the management of the patient with other professionals? @ -No Did you reconcile home meds? @ -No Was smoking cessation discussed for >3mins.? @ -No Was critical care preformed (if so, how long)? @ -No Were there social determinants of health that impacted care today? How? (Homelessness, low income, unemployed, alcoholism, drug addiction, transportation, low edu. Level, literacy, decrease access to med. care, care home, rehab)? @ -No Was there de-escalation of care discussed even if they declined? (Discuss DNR or withdrawal of care, Hospice)? @ -No What co-morbidities impacted this encounter? (DM, HTN, Smoking, COPD, CAD, Cancer, CVA, Hep., AIDS, mental health diagnosis, sleep apnea, morbid obesity)? @ -CAD Was patient admitted / discharged? @ -Discharged. COVID, influenza, and RSV testing negative. Chest x-ray demonstrates right mid and lower lobe opacities concerning for pneumonia. Given patient's multiple comorbidities, he was put on levofloxacin for treatment. Tessalon Perles, Mucinex, and albuterol inhaler prescribed for further symptomatic management. He was given strict return parameters and advised to have close follow-up with his PCP. Patient discharged home in stable condition. Case discussed with ED attending Dr. Jones. Return precautions reviewed in depth, the patient is instructed to return to the emergency department with any new, worsening, or concerning symptoms. Patient verbalized understanding. Undiagnosed new problem with uncertain prognosis? @ -None Drug Therapy requiring intensive monitoring for toxicity (Heparin, Nitro, Insulin, Cardizem)? @ -None Were any procedures done? @ -None Diagnosis/symptom? @ -Pneumonia Acute, or Chronic, or Acute on Chronic? @ -Acute Uncomplicated (without systemic symptoms) or Complicated (systemic symptoms)? @ -Uncomplicated Side effects of treatment? @ -None Exacerbation, Progression, or Severe Exacerbation] @ -Not applicable Poses a threat to life or bodily function? @ -No - Lab Data Lab Results 10/06/24 Range/Units 07:43 Influenza Type A (PCR) Not Detected (Not Detectd) Influenza Type B (PCR) Not Detected (Not Detectd) RSV (PCR) Not Detected (Not Detectd) SARS-CoV-2 (PCR) Not Detected (Not Detectd) - Radiology Data Radiology results: report reviewed, image reviewed Disposition Clinical Impression: Pneumonia Disposition: HOME SELF-CARE Instructions (If sedation given, give patient instructions): Pneumonia (ED) Additional Instructions: Return to the emergency department with any new, worsening, or concerning symptoms. Take the antibiotic as prescribed for 5 days. You can take the Tessalon Perles up to every 8 hours and the Mucinex up to every 12 hours as needed for coughing. Use the albuterol inhaler every 4-6 hours as needed for wheezing or shortness of breath. Follow up with your primary care provider in 1-2 days. Prescriptions: Albuterol Sulfate [Albuterol Sulfate Hfa] 1 puff PO Q4-6H PRN #8.5 gm PRN Reason: Shortness Of Breath Levofloxacin [Levaquin] 750 mg PO DAILY 5 Days #5 tab guaiFENesin [Mucinex] 1,200 mg PO BID PRN #20 tab PRN Reason: Cough Benzonatate [Tessalon Perle] 200 mg PO TID PRN #20 capsule PRN Reason: Cough Is patient prescribed a controlled substance at d/c from ED?: No Referrals: Nonstaff,Physician [REFERRING] - 1-2 days Time of Disposition: 09:08
--- NOTE | 2024-10-06 08:07 | XR ---
EXAMINATION TYPE: XR chest 2V DATE OF EXAM: 10/06/2024 7:57 AM COMPARISON: Chest radiographs from 05/28/2021 TECHNIQUE: XR chest 2V Frontal and lateral views of the chest. CLINICAL INDICATION:Male, 64 years old with history of Cough; FINDINGS: Lungs/Pleura: No pleural effusion or pneumothorax. Patchy airspace opacities within the right mid and lower lung. Pulmonary vascularity: Unremarkable. Heart/mediastinum: Cardiomediastinal silhouette is unremarkable. Atherosclerotic calcifications are seen in the aorta. Musculoskeletal: No acute osseous pathology. IMPRESSION: Patchy airspace opacities within the right mid and lower lung representing pneumonia. [facility], , 10/06/2024 8:04 AM
[2024-10-06 08:23] LABS: Influenza A Not Detected (Not Detectd); Influenza B Not Detected (Not Detectd); RSV Not Detected (Not Detectd)
[2024-10-06] MEDS: DEXAMETHASONE SOD PHOSPHATE 10 MG/ML 1 ML VIAL IM STA (08:39)
[2024-10-06] MEDS: IPRATROPIUM-ALBUTEROL 3 ML NEB INHALATION STA (08:43)
[2024-10-06 09:18] VITALS: BP 136/76; PULSE 72; TEMP 98.3
== END 2024-10-06 09:17 | disposition home or self-care (01) ==
LOC: SUPCPDRO 07:20 → EC 07:20
DX: J18.9 Pneumonia, unspecified organism (principal); Z11.52 Encounter for screening for COVID-19; Z87.891 Personal history of nicotine dependence
CPT/HCPCS: 94640; 87636; 71046; 99283; 96372; J1100